=== PATIENT | male | born 1950 | race American Indian/Alaskan Native ===

== ENCOUNTER 2017-11-07 05:20 | Inpatient (IN) | payer MEDICARE, OTHER ==
[~2017-11-07] VITALS: Ht 170.2 cm; Wt 67.7 kg
[~2017-11-07 05:20] MED LIST: Actos45 MG PO; Aspir 8181 MG PO; CLON.1 PO; FOLI1; FOLI1 PO; GEMF600; LEVSOD50 PO; LOSHYD; METF500 PO; NEBI10; OLME40 PO; PANT20; PANT40; PANT40 PO; PARO30; PRED20 PO; PROAIR RESPICL90 MCG IH; Prozac20 MG PO; SITA100T2 PO; THIA100 PO; Tylenol325 MG PO; VERA180ERB PO; XARELTO20 MG; Zofran Odt4 MG SL
[2017-11-07 05:35] LABS: BASOPHILS ABSOLUTE AUTO 0.06 K/mm3 (0.00-0.23); BASOPHILS PERCENT AUTO 1 % (0-2); EOSINOPHILS ABSOLUTE AUTO 0.04 K/mm3 (0.00-0.68); EOSINOPHILS PERCENT AUTO 1 % (0-6); Hematocrit 37.8 % (37.0-53.0); Hemoglobin 13.3 g/dL (13.5-17.5); IMMATURE GRAN ABSOLUTE AUTO 0.03 K/mm3 (0.00-0.10); IMMATURE GRAN PERCENT AUTO 0 % (0-1); LYMPHOCYTES ABSOLUTE AUTO 2.25 K/mm3 (0.84-5.20); LYMPHOCYTES PERCENT AUTO 32 % (21-46); MONOCYTES ABSOLUTE AUTO 0.79 K/mm3 (0.16-1.47); MONOCYTES PERCENT AUTO 11 % (4-13); Mean Corpuscular HGB 32.4 pg (26.0-34.0); Mean Corpuscular HGB Conc 35.2 g/dL (31.5-36.5); Mean Corpuscular Volume 92 fL (80-100); Mean Platelet Volume 10.2 fL (9.1-12.4); NEUTROPHILS ABSOLUTE AUTO 3.92 K/mm3 (1.96-9.15); NEUTROPHILS PERCENT AUTO 55 % (41-73); Platelet Count 219 K/mm3 (150-400); RDW Coefficient Variation 11.5 % (11.7-14.2); RDW Standard Deviation 39.2 fL (35.1-46.3); Red Blood Cell Count 4.11 M/mm3 (4.30-5.90); White Blood Cell Count 7.09 K/mm3 (4.00-11.30)
[2017-11-07 05:48] LABS: Prothrombin Time Results 10.4 Sec (9.7-11.5)
[2017-11-07 05:59] LABS: Alanine Aminotransfer (ALT/SGP 13 U/L (12-78); Albumin, Blood 3.2 g/dL (3.4-5.0); Albumin/Globulin Ratio 0.9 (0.8-1.8); Alk Phos 90 U/L (50-136); Anion Gap 6 mmol/L (6-16); Aspartate Aminotrans (AST/SGOT 16 U/L (12-37); Bilirubin, Total 0.6 mg/dL (0.1-1.0); Blood Urea Nitrogen 10 mg/dL (8-24); Bun/Creatinine Ratio 17.5 (12.0-20.0); CO2, Blood 24 mmol/L (21-32); Calcium, Blood 8.1 mg/dL (8.5-10.1); Chloride, Blood 96 mmol/L (98-108); Creatinine, Blood 0.57 mg/dL (0.60-1.20); Globulin, Blood 3.6 g/dL (2.2-4.0); Glomerular Filtration Rate >60 (60-); Glucose, Blood 133 mg/dL (70-99); Potassium, Blood 3.7 mmol/L (3.5-5.5); Sodium, Blood 126 mmol/L (136-145); Total Protein, Blood 6.8 g/dL (6.4-8.2); Troponin I <0.015 ng/mL (0.000-0.040)
[2017-11-07] MEDS ORDERED: OXYB5 PO ×2 (06:17→14:48)
[2017-11-07] MEDS ORDERED: DONE5 (06:17)
[2017-11-07] MEDS ORDERED: OLME5TAB (06:18)
[2017-11-07] MEDS ORDERED: TAMS.4ER PO (06:18)
[2017-11-07] MEDS ORDERED: BIOTIN1 MG (06:19)
[2017-11-07 06:39] LABS: Uric Acid, Blood 3.9 mg/dL (3.5-7.2)
[2017-11-07 06:50] LABS: Ethanol (Alcohol), Blood, Med 71 mg/dL
[2017-11-07 06:56] LABS: Creatinine, Urine Random 21.2 mg/dL (27.00-270.00)
[2017-11-07 06:59] LABS: U Amphetamine Screen Not Detected; U Barbituate Screen Not Detected; U Benzodiazapine Screen Not Detected; U Cannabinoids Screen DETECTED; U Cocaine Screen Not Detected; U Methadone Screen Not Detected; U Methamphetamine Screen Not Detected; U Opiates Screen Not Detected; U Phencyclidine Screen Not Detected
[2017-11-07 07:00] LABS: U Buprenorphine Screen Not Detected; U Oxycodone Screen Not Detected; U Propoxyphene Screen Not Detected
[2017-11-07 07:08] LABS: Osmolality, Serum 283 mos/KG (275-300)
[2017-11-07 12:54] LABS: Anion Gap 10 mmol/L (6-16); Blood Urea Nitrogen 8 mg/dL (8-24); Bun/Creatinine Ratio 13.5 (12.0-20.0); CO2, Blood 22 mmol/L (21-32); Calcium, Blood 8.9 mg/dL (8.5-10.1); Chloride, Blood 97 mmol/L (98-108); Creatinine, Blood 0.59 mg/dL (0.60-1.20); Glomerular Filtration Rate >60 (60-); Glucose, Blood 113 mg/dL (70-99); Potassium, Blood 4.2 mmol/L (3.5-5.5); Sodium, Blood 129 mmol/L (136-145)
[2017-11-07] MEDS ORDERED: THIA100 PO (14:46)
[2017-11-07] MEDS ORDERED: OLME20 PO (14:47)
[2017-11-07] MEDS ORDERED: CLON.2 PO (14:48)
[2017-11-07] MEDS ORDERED: DONE10 PO (14:49)
[2017-11-07] MEDS ORDERED: PARO20 PO (14:49)
[2017-11-07] MEDS ORDERED: BIOTIN5000 MCG PO (14:50)
[2017-11-07] MEDS ORDERED: MAGCHL64ER (14:51)
[2017-11-08 08:09] LABS: BASOPHILS ABSOLUTE AUTO 0.05 K/mm3 (0.00-0.23); BASOPHILS PERCENT AUTO 1 % (0-2); EOSINOPHILS ABSOLUTE AUTO 0.08 K/mm3 (0.00-0.68); EOSINOPHILS PERCENT AUTO 1 % (0-6); IMMATURE GRAN ABSOLUTE AUTO 0.03 K/mm3 (0.00-0.10); IMMATURE GRAN PERCENT AUTO 0 % (0-1); LYMPHOCYTES PERCENT AUTO 32 % (21-46); MONOCYTES ABSOLUTE AUTO 0.67 K/mm3 (0.16-1.47); MONOCYTES PERCENT AUTO 8 % (4-13); Mean Corpuscular HGB 32.3 pg (26.0-34.0); Mean Corpuscular HGB Conc 35.1 g/dL (31.5-36.5); Mean Corpuscular Volume 92 fL (80-100); Mean Platelet Volume 10.3 fL (9.1-12.4); NEUTROPHILS ABSOLUTE AUTO 4.63 K/mm3 (1.96-9.15); NEUTROPHILS PERCENT AUTO 57 % (41-73); Platelet Count 224 K/mm3 (150-400); RDW Coefficient Variation 11.5 % (11.7-14.2); RDW Standard Deviation 38.9 fL (35.1-46.3); Red Blood Cell Count 4.03 M/mm3 (4.30-5.90); White Blood Cell Count 8.06 K/mm3 (4.00-11.30)
[2017-11-08 08:27] LABS: Very Low Density Lipoprot Chol 38 mg/dL (6-32)
[2017-11-08 08:28] LABS: Anion Gap 8 mmol/L (6-16); Blood Urea Nitrogen 7 mg/dL (8-24); Bun/Creatinine Ratio 11.4 (12.0-20.0); CHOL/HDL RATIO 3.6; CO2, Blood 24 mmol/L (21-32); Calcium, Blood 8.3 mg/dL (8.5-10.1); Chloride, Blood 98 mmol/L (98-108); Cholesterol 172 mg/dL (50-200); Creatinine, Blood 0.62 mg/dL (0.60-1.20); Glomerular Filtration Rate >60 (60-); Glucose, Blood 129 mg/dL (70-99); HDL Cholesterol 48 mg/dL (>39); LDL/HDL RATIO 1.8; Low Density Lipoprotein Chol 86 mg/dL (0-110); Potassium, Blood 4.1 mmol/L (3.5-5.5); Sodium, Blood 130 mmol/L (136-145); Triglycerides 191 mg/dL (30-160)
[2017-11-09 04:22] LABS: BASOPHILS ABSOLUTE AUTO 0.05 K/mm3 (0.00-0.23); BASOPHILS PERCENT AUTO 1 % (0-2); EOSINOPHILS ABSOLUTE AUTO 0.04 K/mm3 (0.00-0.68); EOSINOPHILS PERCENT AUTO 1 % (0-6); Hematocrit 34.8 % (37.0-53.0); Hemoglobin 12.5 g/dL (13.5-17.5); IMMATURE GRAN ABSOLUTE AUTO 0.03 K/mm3 (0.00-0.10); IMMATURE GRAN PERCENT AUTO 0 % (0-1); LYMPHOCYTES ABSOLUTE AUTO 2.01 K/mm3 (0.84-5.20); LYMPHOCYTES PERCENT AUTO 24 % (21-46); MONOCYTES ABSOLUTE AUTO 0.67 K/mm3 (0.16-1.47); MONOCYTES PERCENT AUTO 8 % (4-13); Mean Corpuscular HGB 32.4 pg (26.0-34.0); Mean Corpuscular HGB Conc 35.9 g/dL (31.5-36.5); Mean Corpuscular Volume 90 fL (80-100); Mean Platelet Volume 10.1 fL (9.1-12.4); NEUTROPHILS ABSOLUTE AUTO 5.53 K/mm3 (1.96-9.15); NEUTROPHILS PERCENT AUTO 66 % (41-73); Platelet Count 225 K/mm3 (150-400); RDW Coefficient Variation 11.3 % (11.7-14.2); RDW Standard Deviation 37.3 fL (35.1-46.3); Red Blood Cell Count 3.86 M/mm3 (4.30-5.90); White Blood Cell Count 8.33 K/mm3 (4.00-11.30)
[2017-11-09 04:37] LABS: Anion Gap 8 mmol/L (6-16); Blood Urea Nitrogen 7 mg/dL (8-24); Bun/Creatinine Ratio 12.9 (12.0-20.0); CO2, Blood 24 mmol/L (21-32); Calcium, Blood 8.3 mg/dL (8.5-10.1); Chloride, Blood 94 mmol/L (98-108); Creatinine, Blood 0.54 mg/dL (0.60-1.20); Glomerular Filtration Rate >60 (60-); Glucose, Blood 159 mg/dL (70-99); Potassium, Blood 3.5 mmol/L (3.5-5.5); Sodium, Blood 126 mmol/L (136-145)
[2017-11-09 14:18] LABS: Anion Gap 12 mmol/L (6-16); Blood Urea Nitrogen 6 mg/dL (8-24); Bun/Creatinine Ratio 11.1 (12.0-20.0); CO2, Blood 20 mmol/L (21-32); Calcium, Blood 8.2 mg/dL (8.5-10.1); Chloride, Blood 95 mmol/L (98-108); Creatinine, Blood 0.54 mg/dL (0.60-1.20); Glomerular Filtration Rate >60 (60-); Glucose, Blood 211 mg/dL (70-99); Potassium, Blood 3.8 mmol/L (3.5-5.5); Sodium, Blood 127 mmol/L (136-145)
[2017-11-10 05:13] LABS: Anion Gap 6 mmol/L (6-16); Blood Urea Nitrogen 8 mg/dL (8-24); CO2, Blood 25 mmol/L (21-32); Calcium, Blood 8.2 mg/dL (8.5-10.1); Chloride, Blood 96 mmol/L (98-108); Creatinine, Blood 0.53 mg/dL (0.60-1.20); Glomerular Filtration Rate >60 (60-); Glucose, Blood 172 mg/dL (70-99); Potassium, Blood 3.9 mmol/L (3.5-5.5); Sodium, Blood 127 mmol/L (136-145)
[2018-04-18] MEDS ORDERED: GABA100 PO (22:54)
== END 2017-11-10 11:49 | DRG 65 ==
LOC: ER 05:20 → SURS 09:17 → MEDS 09:29 → SURS 09:47 → ENPENDDIS 11-10 11:16 → SURS 11-10 11:49
PROVIDERS: Emergency Medicine; Internal Medicine
DX: I63.9 Cerebral infarction, unspecified (principal); G81.91 Hemiplegia, unspecified affecting right dominant side; I48.91 Unspecified atrial fibrillation; E87.1 Hypo-osmolality and hyponatremia; R47.1 Dysarthria and anarthria; R47.81 Slurred speech; E11.9 Type 2 diabetes mellitus without complications; I10 Essential (primary) hypertension; F17.210 Nicotine dependence, cigarettes, uncomplicated; F10.20 Alcohol dependence, uncomplicated; E78.5 Hyperlipidemia, unspecified; Z88.1 Allergy status to other antibiotic agents; Z88.8 Allergy status to other drugs, medicaments and biological substances; Z79.899 Other long term (current) drug therapy; Z79.01 Long term (current) use of anticoagulants; Z79.84 Long term (current) use of oral hypoglycemic drugs; Z95.0 Presence of cardiac pacemaker
CPT/HCPCS: 36415; 70450; 70496; 71046; 80048; 80053; 80061; 82570; 82947; 83930; 83935; 84300; 84443; 84484; 84540; 84550; 85025; 85610; 92523; 92610; 93005; 93010; 93306; 93880; 96360; 97110; 97116; 97162; 97166; 97530; 97535; 99285; G0480; G8978; G8979; G8987; G8988; G8996; G8997; G8999; G9158; G9186; J0360; J1200; J2060; J2997; J3411; J3475; J7030; J7042; Q9967

== ENCOUNTER 2017-12-24 15:47 | Observation (INO) | payer MEDICARE, OTHER ==
[~2017-12-24] VITALS: Ht 170.2 cm; Wt 68.4 kg
[~2017-12-24 15:47] MED LIST changes: +BIOTIN1 MG; +BIOTIN5000 MCG PO; +CLON.2 PO; +DONE10 PO; +DONE5; +MAGCHL64ER; +OLME20 PO; +OLME5TAB; +OXYB5 PO; +PARO20 PO; +TAMS.4ER PO
[2017-12-24 16:59] LABS: BASOPHILS ABSOLUTE AUTO 0.03 K/mm3 (0.00-0.23); BASOPHILS PERCENT AUTO 0 % (0-2); EOSINOPHILS ABSOLUTE AUTO 0.07 K/mm3 (0.00-0.68); EOSINOPHILS PERCENT AUTO 1 % (0-6); Hematocrit 35.3 % (37.0-53.0); Hemoglobin 12.2 g/dL (13.5-17.5); IMMATURE GRAN ABSOLUTE AUTO 0.04 K/mm3 (0.00-0.10); IMMATURE GRAN PERCENT AUTO 1 % (0-1); LYMPHOCYTES ABSOLUTE AUTO 2.22 K/mm3 (0.84-5.20); LYMPHOCYTES PERCENT AUTO 30 % (21-46); MONOCYTES ABSOLUTE AUTO 0.61 K/mm3 (0.16-1.47); MONOCYTES PERCENT AUTO 8 % (4-13); Mean Corpuscular HGB 32.1 pg (26.0-34.0); Mean Corpuscular HGB Conc 34.6 g/dL (31.5-36.5); Mean Corpuscular Volume 93 fL (80-100); Mean Platelet Volume 11.3 fL (9.1-12.4); NEUTROPHILS ABSOLUTE AUTO 4.37 K/mm3 (1.96-9.15); NEUTROPHILS PERCENT AUTO 60 % (41-73); Platelet Count 220 K/mm3 (150-400); RDW Coefficient Variation 12.5 % (11.7-14.2); RDW Standard Deviation 42.7 fL (35.1-46.3); White Blood Cell Count 7.34 K/mm3 (4.00-11.30)
[2017-12-24 17:12] LABS: International Normalized Ratio 1.29; Prothrombin Time Results 13.5 Sec (9.7-11.5)
[2017-12-24 17:23] LABS: Alanine Aminotransfer (ALT/SGP 22 U/L (12-78); Albumin, Blood 3.4 g/dL (3.4-5.0); Alk Phos 115 U/L (50-136); Anion Gap 10 mmol/L (6-16); Aspartate Aminotrans (AST/SGOT 26 U/L (12-37); Bilirubin, Total 0.3 mg/dL (0.1-1.0); Blood Urea Nitrogen 10 mg/dL (8-24); Bun/Creatinine Ratio 17.2 (12.0-20.0); CO2, Blood 23 mmol/L (21-32); Calcium, Blood 8.7 mg/dL (8.5-10.1); Chloride, Blood 105 mmol/L (98-108); Creatinine, Blood 0.58 mg/dL (0.60-1.20); Globulin, Blood 3.5 g/dL (2.2-4.0); Glomerular Filtration Rate >60 (60-); Glucose, Blood 135 mg/dL (70-99); Potassium, Blood 3.8 mmol/L (3.5-5.5); Sodium, Blood 138 mmol/L (136-145); Total Protein, Blood 6.9 g/dL (6.4-8.2)
[2017-12-24 19:05] LABS: Ethanol (Alcohol), Blood, Med <3 mg/dL
[2017-12-24 19:33] LABS: Source, Urine Clean Catch
[2017-12-24 19:38] LABS: Appearance, Urine Clear (Clear); Bilirubin, Urine Neg (Neg); Blood, Urine Neg (Neg); Color, Urine Yellow (P-Yellow); Glucose Qualitative, Urine Neg (Neg); Ketones, Urine Neg (Neg); Leukocyte Esterase, Urine Neg (Neg); Nitrite, Urine Neg (Neg); Protein, Urine Neg (Neg); Urobilinogen, Urine 1+ (Normal)
[2017-12-24 19:49] LABS: U Amphetamine Screen Not Detected; U Barbituate Screen Not Detected; U Benzodiazapine Screen Not Detected; U Buprenorphine Screen Not Detected; U Cannabinoids Screen DETECTED; U Cocaine Screen Not Detected; U Methadone Screen Not Detected; U Methamphetamine Screen Not Detected; U Opiates Screen Not Detected; U Oxycodone Screen Not Detected; U Phencyclidine Screen Not Detected; U Propoxyphene Screen Not Detected
[2017-12-24] MEDS ORDERED: SODCHL1 PO (20:43)
[2017-12-24] MEDS ORDERED: NEBI10 PO (20:43)
[2017-12-24] MEDS ORDERED: ASCO500 PO (20:43)
[2017-12-24] MEDS ORDERED: FOLI1 PO (20:44)
[2017-12-24] MEDS ORDERED: PANT20 PO (20:44)
[2017-12-24] MEDS ORDERED: WARF2 PO (20:45)
[2017-12-24] MEDS ORDERED: ENOX100I SC (20:45)
[2017-12-24] MEDS ORDERED: Colace100 MG PO (20:46)
[2017-12-24] MEDS ORDERED: METF500C PO (20:47)
[2017-12-25 10:26] LABS: International Normalized Ratio 1.48; Prothrombin Time Results 15.6 Sec (9.7-11.5)
[2017-12-25] MEDS ORDERED: ASPI81CH PO (12:16)
[2018-04-18] MEDS ORDERED: GABA100 PO (22:54)
== END 2017-12-25 14:59 | disposition home or self-care (01) ==
LOC: ER 15:47 → MEDS 15:48
PROVIDERS: Emergency Medicine; Internal Medicine; Physician Assistant
DX: I63.9 Cerebral infarction, unspecified (principal); E11.9 Type 2 diabetes mellitus without complications; I10 Essential (primary) hypertension; E87.1 Hypo-osmolality and hyponatremia; I48.2 Chronic atrial fibrillation; F17.210 Nicotine dependence, cigarettes, uncomplicated; Z95.0 Presence of cardiac pacemaker; Z98.890 Other specified postprocedural states; Z79.01 Long term (current) use of anticoagulants; Z79.899 Other long term (current) drug therapy; Z88.8 Allergy status to other drugs, medicaments and biological substances; Z79.4 Long term (current) use of insulin
CPT/HCPCS: 36415; 70450; 71046; 80053; 81003; 82947; 85025; 85610; 93005; 93010; 96372; 96374; 97161; 97166; 97535; 99285; C9113; G0378; G0480; G8978; G8979; G8980; G8987; G8988; G8989; J1650

== ENCOUNTER 2018-02-03 23:28 | Inpatient (IN) | payer MEDICARE, OTHER ==
[~2018-02-03] VITALS: Ht 170.2 cm; Wt 66.7 kg
[~2018-02-03 23:28] MED LIST changes: +ASCO500 PO; +ASPI81CH PO; +Colace100 MG PO; +ENOX100I SC; +NEBI10 PO; +PANT20 PO; +SITA100T2; -SITA100T2 PO; +SODCHL1 PO; +WARF2 PO
[2018-02-04 01:07] LABS: BASOPHILS ABSOLUTE AUTO 0.06 K/mm3 (0.00-0.23); BASOPHILS PERCENT AUTO 1 % (0-2); EOSINOPHILS PERCENT AUTO 1 % (0-6); Hematocrit 31.9 % (37.0-53.0); IMMATURE GRAN ABSOLUTE AUTO 0.07 K/mm3 (0.00-0.10); IMMATURE GRAN PERCENT AUTO 1 % (0-1); LYMPHOCYTES ABSOLUTE AUTO 2.21 K/mm3 (0.84-5.20); LYMPHOCYTES PERCENT AUTO 21 % (21-46); MONOCYTES ABSOLUTE AUTO 0.85 K/mm3 (0.16-1.47); MONOCYTES PERCENT AUTO 8 % (4-13); Mean Corpuscular HGB 32.3 pg (26.0-34.0); Mean Corpuscular HGB Conc 34.5 g/dL (31.5-36.5); Mean Corpuscular Volume 94 fL (80-100); Mean Platelet Volume 10.6 fL (9.1-12.4); NEUTROPHILS ABSOLUTE AUTO 7.22 K/mm3 (1.96-9.15); NEUTROPHILS PERCENT AUTO 69 % (41-73); Platelet Count 283 K/mm3 (150-400); RDW Coefficient Variation 12.2 % (11.7-14.2); RDW Standard Deviation 42.1 fL (35.1-46.3); Red Blood Cell Count 3.41 M/mm3 (4.30-5.90); White Blood Cell Count 10.51 K/mm3 (4.00-11.30)
[2018-02-04 01:20] LABS: International Normalized Ratio 1.98
[2018-02-04 01:28] LABS: Alanine Aminotransfer (ALT/SGP 17 U/L (12-78); Albumin, Blood 2.9 g/dL (3.4-5.0); Albumin/Globulin Ratio 0.8 (0.8-1.8); Alk Phos 131 U/L (50-136); Anion Gap 7 mmol/L (6-16); Aspartate Aminotrans (AST/SGOT 21 U/L (12-37); Bilirubin, Total 0.3 mg/dL (0.1-1.0); Blood Urea Nitrogen 15 mg/dL (8-24); Bun/Creatinine Ratio 20.2 (12.0-20.0); CO2, Blood 24 mmol/L (21-32); Calcium, Blood 8.4 mg/dL (8.5-10.1); Chloride, Blood 100 mmol/L (98-108); Creatinine, Blood 0.74 mg/dL (0.60-1.20); Globulin, Blood 3.5 g/dL (2.2-4.0); Glomerular Filtration Rate >60 (60-); Glucose, Blood 157 mg/dL (70-99); Sodium, Blood 131 mmol/L (136-145); Total Protein, Blood 6.4 g/dL (6.4-8.2); Troponin I <0.015 ng/mL (0.000-0.040)
[2018-02-04 13:29] LABS: International Normalized Ratio 1.15
[2018-02-04 20:40] LABS: Hematocrit 24.5 % (37.0-53.0); Hemoglobin 8.6 g/dL (13.5-17.5)
[2018-02-05 05:05] LABS: BASOPHILS ABSOLUTE AUTO 0.07 K/mm3 (0.00-0.23); BASOPHILS PERCENT AUTO 1 % (0-2); EOSINOPHILS ABSOLUTE AUTO 0.09 K/mm3 (0.00-0.68); EOSINOPHILS PERCENT AUTO 1 % (0-6); Hematocrit 24.8 % (37.0-53.0); Hemoglobin 8.4 g/dL (13.5-17.5); IMMATURE GRAN ABSOLUTE AUTO 0.04 K/mm3 (0.00-0.10); IMMATURE GRAN PERCENT AUTO 0 % (0-1); LYMPHOCYTES ABSOLUTE AUTO 2.18 K/mm3 (0.84-5.20); LYMPHOCYTES PERCENT AUTO 21 % (21-46); MONOCYTES ABSOLUTE AUTO 0.89 K/mm3 (0.16-1.47); MONOCYTES PERCENT AUTO 9 % (4-13); Mean Corpuscular HGB 31.5 pg (26.0-34.0); Mean Corpuscular HGB Conc 33.9 g/dL (31.5-36.5); Mean Corpuscular Volume 93 fL (80-100); Mean Platelet Volume 11.1 fL (9.1-12.4); NEUTROPHILS ABSOLUTE AUTO 7.11 K/mm3 (1.96-9.15); NEUTROPHILS PERCENT AUTO 68 % (41-73); Platelet Count 243 K/mm3 (150-400); RDW Coefficient Variation 12.5 % (11.7-14.2); RDW Standard Deviation 42.3 fL (35.1-46.3); Red Blood Cell Count 2.67 M/mm3 (4.30-5.90); White Blood Cell Count 10.38 K/mm3 (4.00-11.30)
[2018-02-05 05:32] LABS: Anion Gap 8 mmol/L (6-16); Blood Urea Nitrogen 16 mg/dL (8-24); Bun/Creatinine Ratio 29.4 (12.0-20.0); CO2, Blood 24 mmol/L (21-32); Calcium, Blood 8.4 mg/dL (8.5-10.1); Chloride, Blood 102 mmol/L (98-108); Creatinine, Blood 0.55 mg/dL (0.60-1.20); Glomerular Filtration Rate >60 (60-); Glucose, Blood 104 mg/dL (70-99); Potassium, Blood 4.1 mmol/L (3.5-5.5); Sodium, Blood 134 mmol/L (136-145)
[2018-02-05 08:09] LABS: Hematocrit 23.2 % (37.0-53.0)
[2018-02-05 08:25] LABS: International Normalized Ratio 1.03; Prothrombin Time Results 10.7 Sec (9.7-11.5)
== END 2018-02-05 14:14 | disposition home or self-care (01) | DRG 86 ==
LOC: ER 23:28 → MEDS 23:29
PROVIDERS: Emergency Medicine; Internal Medicine
PROC: 2Y41X5Z Packing of Nasal Region using Packing Material (ICD-10-PCS; principal; 2018-02-04)
PROC: 30233K1 Transfusion of Nonautologous Frozen Plasma into Peripheral Vein, Percutaneous Approach (ICD-10-PCS; 2018-02-04)
DX: S06.5X0A Traumatic subdural hemorrhage without loss of consciousness, initial encounter (principal); D62 Acute posthemorrhagic anemia; E87.1 Hypo-osmolality and hyponatremia; R04.0 Epistaxis; Z79.01 Long term (current) use of anticoagulants; W01.0XXA Fall on same level from slipping, tripping and stumbling without subsequent striking against object, initial encounter; Z95.0 Presence of cardiac pacemaker; I10 Essential (primary) hypertension; E11.9 Type 2 diabetes mellitus without complications; F17.210 Nicotine dependence, cigarettes, uncomplicated; J32.0 Chronic maxillary sinusitis; K21.9 Gastro-esophageal reflux disease without esophagitis; I48.91 Unspecified atrial fibrillation
CPT/HCPCS: 36415; 36430; 70450; 72125; 80048; 80053; 82947; 84484; 85014; 85018; 85025; 85610; 86900; 86901; 93005; 93010; 96365; 99285; A9270; C9113; J3430; J7030; P9059

== ENCOUNTER 2018-02-18 12:08 | Emergency (ER) | payer MEDICARE ==
[~2018-02-18] VITALS: Ht 170.2 cm; Wt 69.8 kg
[2018-02-18 12:41] LABS: BASOPHILS ABSOLUTE AUTO 0.05 K/mm3 (0.00-0.23); BASOPHILS PERCENT AUTO 1 % (0-2); EOSINOPHILS ABSOLUTE AUTO 0.03 K/mm3 (0.00-0.68); EOSINOPHILS PERCENT AUTO 0 % (0-6); Hematocrit 25.5 % (37.0-53.0); Hemoglobin 8.1 g/dL (13.5-17.5); IMMATURE GRAN ABSOLUTE AUTO 0.07 K/mm3 (0.00-0.10); IMMATURE GRAN PERCENT AUTO 1 % (0-1); LYMPHOCYTES ABSOLUTE AUTO 1.48 K/mm3 (0.84-5.20); LYMPHOCYTES PERCENT AUTO 17 % (21-46); MONOCYTES ABSOLUTE AUTO 0.69 K/mm3 (0.16-1.47); MONOCYTES PERCENT AUTO 8 % (4-13); Mean Corpuscular HGB 31.4 pg (26.0-34.0); Mean Corpuscular HGB Conc 31.8 g/dL (31.5-36.5); Mean Platelet Volume 10.2 fL (9.1-12.4); NEUTROPHILS ABSOLUTE AUTO 6.34 K/mm3 (1.96-9.15); NEUTROPHILS PERCENT AUTO 73 % (41-73); Platelet Count 397 K/mm3 (150-400); RDW Coefficient Variation 13.6 % (11.7-14.2); RDW Standard Deviation 48.8 fL (35.1-46.3); Red Blood Cell Count 2.58 M/mm3 (4.30-5.90); White Blood Cell Count 8.66 K/mm3 (4.00-11.30)
[2018-02-18 12:46] LABS: Mean Corpuscular Volume 99 fL (80-100)
[2018-02-18 12:51] LABS: Anion Gap 7 mmol/L (6-16); Blood Urea Nitrogen 8 mg/dL (8-24); Bun/Creatinine Ratio 14.8 (12.0-20.0); CO2, Blood 25 mmol/L (21-32); Calcium, Blood 8.7 mg/dL (8.5-10.1); Chloride, Blood 106 mmol/L (98-108); Creatinine, Blood 0.54 mg/dL (0.60-1.20); Glomerular Filtration Rate >60 (60-); Glucose, Blood 141 mg/dL (70-99); Sodium, Blood 138 mmol/L (136-145)
[2018-02-18] MEDS ORDERED: Lasix40 MG PO (13:54)
[2018-02-18] MEDS ORDERED: Acetaminophen-1 EAC1 PO (13:56)
== END 2018-02-18 14:22 | disposition home or self-care (01) ==
LOC: ER 12:08
PROVIDERS: Emergency Medicine
DX: I50.9 Heart failure, unspecified (principal); F07.81 Postconcussional syndrome; Z88.1 Allergy status to other antibiotic agents; Z88.8 Allergy status to other drugs, medicaments and biological substances; Z79.899 Other long term (current) drug therapy; Z79.84 Long term (current) use of oral hypoglycemic drugs
CPT/HCPCS: 36415; 70450; 71046; 80048; 83880; 85025; 93005; 93010; J1940

== ENCOUNTER 2018-04-18 15:48 | Observation (INO) | payer MEDICARE, OTHER ==
[~2018-04-18] VITALS: Ht 170.2 cm; Wt 61.0 kg
[~2018-04-18 15:48] MED LIST changes: +Acetaminophen-1 EAC1 PO; +Lasix40 MG PO; +METF500C PO; -SITA100T2; +SITA100T2 PO
[2018-04-18 16:05] LABS: BASOPHILS ABSOLUTE AUTO 0.08 K/mm3 (0.00-0.23); BASOPHILS PERCENT AUTO 1 % (0-2); EOSINOPHILS ABSOLUTE AUTO 0.06 K/mm3 (0.00-0.68); EOSINOPHILS PERCENT AUTO 0 % (0-6); Hematocrit 38.2 % (37.0-53.0); Hemoglobin 12.5 g/dL (13.5-17.5); IMMATURE GRAN ABSOLUTE AUTO 0.07 K/mm3 (0.00-0.10); IMMATURE GRAN PERCENT AUTO 1 % (0-1); LYMPHOCYTES ABSOLUTE AUTO 2.06 K/mm3 (0.84-5.20); LYMPHOCYTES PERCENT AUTO 14 % (21-46); MONOCYTES ABSOLUTE AUTO 0.95 K/mm3 (0.16-1.47); MONOCYTES PERCENT AUTO 6 % (4-13); Mean Corpuscular HGB 28.1 pg (26.0-34.0); Mean Corpuscular HGB Conc 32.7 g/dL (31.5-36.5); Mean Corpuscular Volume 86 fL (80-100); Mean Platelet Volume 11.6 fL (9.1-12.4); NEUTROPHILS ABSOLUTE AUTO 11.78 K/mm3 (1.96-9.15); NEUTROPHILS PERCENT AUTO 79 % (41-73); Platelet Count 269 K/mm3 (150-400); RDW Coefficient Variation 15.6 % (11.7-14.2); RDW Standard Deviation 49.1 fL (35.1-46.3); Red Blood Cell Count 4.45 M/mm3 (4.30-5.90)
[2018-04-18 16:22] LABS: Alanine Aminotransfer (ALT/SGP 19 U/L (12-78); Albumin, Blood 3.7 g/dL (3.4-5.0); Albumin/Globulin Ratio 0.9 (0.8-1.8); Alk Phos 109 U/L (50-136); Anion Gap 14 mmol/L (6-16); Aspartate Aminotrans (AST/SGOT 21 U/L (12-37); Bilirubin, Total 0.8 mg/dL (0.1-1.0); Blood Urea Nitrogen 17 mg/dL (8-24); Bun/Creatinine Ratio 22.5 (12.0-20.0); CO2, Blood 19 mmol/L (21-32); Calcium, Blood 9.2 mg/dL (8.5-10.1); Chloride, Blood 106 mmol/L (98-108); Creatinine, Blood 0.75 mg/dL (0.60-1.20); Ethanol (Alcohol), Blood, Med <3 mg/dL; Globulin, Blood 3.9 g/dL (2.2-4.0); Glomerular Filtration Rate >60 (60-); Glucose, Blood 258 mg/dL (70-99); Potassium, Blood 3.3 mmol/L (3.5-5.5); Sodium, Blood 139 mmol/L (136-145); Total Protein, Blood 7.6 g/dL (6.4-8.2); Troponin I <0.015 ng/mL (0.000-0.040)
[2018-04-18] MEDS ORDERED: Millipred5 MG PO (22:54)
[2018-04-18] MEDS ORDERED: GABA300 PO (22:54)
[2018-04-19 03:03] LABS: BASOPHILS ABSOLUTE AUTO 0.03 K/mm3 (0.00-0.23); BASOPHILS PERCENT AUTO 0 % (0-2); EOSINOPHILS ABSOLUTE AUTO 0.01 K/mm3 (0.00-0.68); EOSINOPHILS PERCENT AUTO 0 % (0-6); Hematocrit 37.4 % (37.0-53.0); Hemoglobin 12.5 g/dL (13.5-17.5); IMMATURE GRAN ABSOLUTE AUTO 0.05 K/mm3 (0.00-0.10); IMMATURE GRAN PERCENT AUTO 0 % (0-1); LYMPHOCYTES ABSOLUTE AUTO 1.19 K/mm3 (0.84-5.20); LYMPHOCYTES PERCENT AUTO 9 % (21-46); MONOCYTES PERCENT AUTO 7 % (4-13); Mean Corpuscular HGB 28.3 pg (26.0-34.0); Mean Corpuscular HGB Conc 33.4 g/dL (31.5-36.5); Mean Corpuscular Volume 85 fL (80-100); Mean Platelet Volume 12.3 fL (9.1-12.4); NEUTROPHILS ABSOLUTE AUTO 11.14 K/mm3 (1.96-9.15); NEUTROPHILS PERCENT AUTO 84 % (41-73); Platelet Count 264 K/mm3 (150-400); RDW Coefficient Variation 16.1 % (11.7-14.2); Red Blood Cell Count 4.42 M/mm3 (4.30-5.90); White Blood Cell Count 13.32 K/mm3 (4.00-11.30)
[2018-04-19 03:18] LABS: Anion Gap 12 mmol/L (6-16); Blood Urea Nitrogen 15 mg/dL (8-24); Bun/Creatinine Ratio 24.9 (12.0-20.0); CO2, Blood 22 mmol/L (21-32); Calcium, Blood 8.2 mg/dL (8.5-10.1); Chloride, Blood 105 mmol/L (98-108); Glomerular Filtration Rate >60 (60-); Glucose, Blood 303 mg/dL (70-99); Magnesium, Blood 1.7 mg/dL (1.6-2.4); Potassium, Blood 3.2 mmol/L (3.5-5.5); Sodium, Blood 139 mmol/L (136-145)
[2018-04-19] MEDS ORDERED: SODCHL1 PO (13:33)
== END 2018-04-19 13:53 | disposition home or self-care (01) ==
LOC: ER 15:48 → ICUW 15:49 → MEDS 15:49 → ICUW 21:13
PROVIDERS: Emergency Medicine; Hospitalist
DX: I16.1 Hypertensive emergency (principal); I48.91 Unspecified atrial fibrillation; R11.2 Nausea with vomiting, unspecified; Z88.1 Allergy status to other antibiotic agents; Z88.8 Allergy status to other drugs, medicaments and biological substances; Z79.899 Other long term (current) drug therapy; Z86.73 Personal history of transient ischemic attack (TIA), and cerebral infarction without residual deficits
CPT/HCPCS: 36415; 51702; 71046; 80048; 80053; 82947; 83690; 83735; 83880; 84484; 85025; 93005; 93010; 96361; 96365; 96366; 96374; 96375; 99285-25; A9270; G0378; G0480; J0360; J1815; J2060; J2405; J3010; J3480; J7030

== ENCOUNTER → 2018-05-12 | Outpatient (CLI) | payer MEDICARE, OTHER ==
[~2018-05-12] MED LIST changes: +GABA300 PO; +Millipred5 MG PO
== END ==
LOC: LAB 15:52 → LAB SHORT 15:52
DX: L72.3 Sebaceous cyst (principal)
CPT/HCPCS: 87070; 87077; 87147; 87186; 87205

== ENCOUNTER 2018-05-18 15:12 | Emergency (ER) | payer MEDICARE, OTHER ==
[~2018-05-18] VITALS: Ht 170.2 cm; Wt 64.9 kg
[~2018-05-18 15:12] MED LIST changes: +GABA100 PO; -GABA300 PO
[2018-05-18 15:45] LABS: Source, Urine Clean Catch
[2018-05-18] MEDS ORDERED: CEPH500 PO (15:47)
[2018-05-18 15:52] LABS: BASOPHILS ABSOLUTE AUTO 0.04 K/mm3 (0.00-0.23); BASOPHILS PERCENT AUTO 1 % (0-2); EOSINOPHILS ABSOLUTE AUTO 0.07 K/mm3 (0.00-0.68); EOSINOPHILS PERCENT AUTO 1 % (0-6); Hematocrit 33.2 % (37.0-53.0); Hemoglobin 11.3 g/dL (13.5-17.5); IMMATURE GRAN ABSOLUTE AUTO 0.03 K/mm3 (0.00-0.10); IMMATURE GRAN PERCENT AUTO 0 % (0-1); LYMPHOCYTES ABSOLUTE AUTO 1.75 K/mm3 (0.84-5.20); LYMPHOCYTES PERCENT AUTO 22 % (21-46); MONOCYTES ABSOLUTE AUTO 0.67 K/mm3 (0.16-1.47); MONOCYTES PERCENT AUTO 8 % (4-13); Mean Corpuscular HGB 28.7 pg (26.0-34.0); Mean Corpuscular Volume 84 fL (80-100); Mean Platelet Volume 10.6 fL (9.1-12.4); NEUTROPHILS ABSOLUTE AUTO 5.56 K/mm3 (1.96-9.15); NEUTROPHILS PERCENT AUTO 68 % (41-73); Platelet Count 273 K/mm3 (150-400); RDW Coefficient Variation 17.2 % (11.7-14.2); RDW Standard Deviation 53.1 fL (35.1-46.3); Red Blood Cell Count 3.94 M/mm3 (4.30-5.90); White Blood Cell Count 8.12 K/mm3 (4.00-11.30)
[2018-05-18 15:52] LABS: Appearance, Urine Clear (Clear); Bilirubin, Urine Neg (Neg); Blood, Urine Neg (Neg); Color, Urine Yellow (P-Yellow); Glucose Qualitative, Urine Neg (Neg); Ketones, Urine Neg (Neg); Leukocyte Esterase, Urine Neg (Neg); Nitrite, Urine Neg (Neg); Protein, Urine Neg (Neg); Urobilinogen, Urine NORM (Normal)
[2018-05-18 16:08] LABS: Alanine Aminotransfer (ALT/SGP 15 U/L (12-78); Albumin, Blood 2.9 g/dL (3.4-5.0); Albumin/Globulin Ratio 0.8 (0.8-1.8); Alk Phos 102 U/L (50-136); Anion Gap 10 mmol/L (6-16); Aspartate Aminotrans (AST/SGOT 16 U/L (12-37); Bilirubin, Total 0.2 mg/dL (0.1-1.0); Blood Urea Nitrogen 8 mg/dL (8-24); Bun/Creatinine Ratio 15.3 (12.0-20.0); CO2, Blood 23 mmol/L (21-32); Calcium, Blood 8.1 mg/dL (8.5-10.1); Chloride, Blood 100 mmol/L (98-108); Creatinine, Blood 0.52 mg/dL (0.60-1.20); Globulin, Blood 3.7 g/dL (2.2-4.0); Glomerular Filtration Rate >60 (60-); Glucose, Blood 94 mg/dL (70-99); Sodium, Blood 133 mmol/L (136-145); Total Protein, Blood 6.6 g/dL (6.4-8.2); Troponin I <0.015 ng/mL (0.000-0.040)
== END 2018-05-18 16:49 | disposition home or self-care (01) ==
LOC: ER 15:12
PROVIDERS: Internal Medicine
DX: I10 Essential (primary) hypertension (principal); R53.83 Other fatigue; R53.81 Other malaise; Z88.1 Allergy status to other antibiotic agents; Z79.899 Other long term (current) drug therapy; Z79.84 Long term (current) use of oral hypoglycemic drugs
CPT/HCPCS: 80053; 81003; 84484; 85025; 93005; 93010; 99284-25

== ENCOUNTER 2018-05-21 17:42 | Inpatient (IN) | payer MEDICARE, OTHER ==
[~2018-05-21] VITALS: Ht 170.2 cm; Wt 67.7 kg
[~2018-05-21 17:42] MED LIST changes: +CEPH500 PO
[2018-05-21] MEDS ORDERED: SITA100T2 PO (18:39)
[2018-05-21] MEDS ORDERED: TAMS.4ER PO (18:39)
[2018-05-21] MEDS ORDERED: SPIR25 PO (18:39)
[2018-05-21 21:26] LABS: Calcium, Ionized (POC) 1.06 mmol/L (1.10-1.46); Chloride (POC) 94 mmol/L (98-108); Creatinine (POC) 0.5 mg/dL (0.8-1.3); Glucose (ISTAT POC) 101 mg/dL (70-99); Hemoglobin (POC) 10.5 g/dL (13.5-17.5); Potassium (POC) 3.6 mmol/L (3.5-5.5); Sodium (POC) 131 mmol/L (135-148); Total CO2 (POC) 26 mmol/L (21-32)
[2018-05-22 04:45] LABS: Hematocrit 34.3 % (37.0-53.0); Hemoglobin 11.4 g/dL (13.5-17.5); Mean Corpuscular HGB 27.3 pg (26.0-34.0); Mean Corpuscular HGB Conc 33.2 g/dL (31.5-36.5); Mean Corpuscular Volume 82 fL (80-100); Mean Platelet Volume 10.1 fL (9.1-12.4); Platelet Count 298 K/mm3 (150-400); RDW Coefficient Variation 17.2 % (11.7-14.2); RDW Standard Deviation 51.4 fL (35.1-46.3); Red Blood Cell Count 4.18 M/mm3 (4.30-5.90); White Blood Cell Count 10.98 K/mm3 (4.00-11.30)
[2018-05-22 05:10] LABS: Alanine Aminotransfer (ALT/SGP 16 U/L (12-78); Albumin, Blood 3.2 g/dL (3.4-5.0); Albumin/Globulin Ratio 0.8 (0.8-1.8); Alk Phos 89 U/L (50-136); Anion Gap 7 mmol/L (6-16); Aspartate Aminotrans (AST/SGOT 20 U/L (12-37); Bilirubin, Total 0.4 mg/dL (0.1-1.0); Blood Urea Nitrogen 7 mg/dL (8-24); Bun/Creatinine Ratio 13.2 (12.0-20.0); CO2, Blood 25 mmol/L (21-32); Calcium, Blood 8.2 mg/dL (8.5-10.1); Chloride, Blood 97 mmol/L (98-108); Creatinine, Blood 0.53 mg/dL (0.60-1.20); Globulin, Blood 3.8 g/dL (2.2-4.0); Glomerular Filtration Rate >60 (60-); Glucose, Blood 176 mg/dL (70-99); Potassium, Blood 3.6 mmol/L (3.5-5.5); Sodium, Blood 129 mmol/L (136-145)
[2018-05-23 05:28] LABS: BASOPHILS ABSOLUTE AUTO 0.04 K/mm3 (0.00-0.23); BASOPHILS PERCENT AUTO 1 % (0-2); EOSINOPHILS ABSOLUTE AUTO 0.02 K/mm3 (0.00-0.68); EOSINOPHILS PERCENT AUTO 0 % (0-6); Hematocrit 31.7 % (37.0-53.0); Hemoglobin 10.4 g/dL (13.5-17.5); IMMATURE GRAN ABSOLUTE AUTO 0.03 K/mm3 (0.00-0.10); IMMATURE GRAN PERCENT AUTO 0 % (0-1); LYMPHOCYTES PERCENT AUTO 16 % (21-46); MONOCYTES ABSOLUTE AUTO 0.93 K/mm3 (0.16-1.47); MONOCYTES PERCENT AUTO 11 % (4-13); Mean Corpuscular HGB 27.3 pg (26.0-34.0); Mean Corpuscular HGB Conc 32.8 g/dL (31.5-36.5); Mean Corpuscular Volume 83 fL (80-100); Mean Platelet Volume 10.2 fL (9.1-12.4); NEUTROPHILS PERCENT AUTO 72 % (41-73); Platelet Count 233 K/mm3 (150-400); RDW Coefficient Variation 17.8 % (11.7-14.2); RDW Standard Deviation 54.3 fL (35.1-46.3); Red Blood Cell Count 3.81 M/mm3 (4.30-5.90); White Blood Cell Count 8.22 K/mm3 (4.00-11.30)
[2018-05-23 05:50] LABS: Anion Gap 7 mmol/L (6-16); Blood Urea Nitrogen 7 mg/dL (8-24); Bun/Creatinine Ratio 11.8 (12.0-20.0); CO2, Blood 25 mmol/L (21-32); Calcium, Blood 7.6 mg/dL (8.5-10.1); Chloride, Blood 102 mmol/L (98-108); Creatinine, Blood 0.59 mg/dL (0.60-1.20); Glomerular Filtration Rate >60 (60-); Glucose, Blood 157 mg/dL (70-99); Magnesium, Blood 1.6 mg/dL (1.6-2.4); Potassium, Blood 3.8 mmol/L (3.5-5.5); Sodium, Blood 134 mmol/L (136-145)
== END 2018-05-25 17:08 | DRG 481 ==
LOC: ER 17:42 → SURS 21:49
PROVIDERS: Emergency Medicine; Internal Medicine; Orthopaedic Surgery
PROC: 0QH636Z Insertion of Intramedullary Internal Fixation Device into Right Upper Femur, Percutaneous Approach (ICD-10-PCS; principal; 2018-05-22 17:45)
DX: S72.011A Unspecified intracapsular fracture of right femur, initial encounter for closed fracture (principal); E87.1 Hypo-osmolality and hyponatremia; W19.XXXA Unspecified fall, initial encounter; E11.9 Type 2 diabetes mellitus without complications; Z79.4 Long term (current) use of insulin; I10 Essential (primary) hypertension; F32.9 Major depressive disorder, single episode, unspecified; M54.9 Dorsalgia, unspecified; F10.20 Alcohol dependence, uncomplicated; Z66 Do not resuscitate; Z51.5 Encounter for palliative care; F17.210 Nicotine dependence, cigarettes, uncomplicated; Z86.73 Personal history of transient ischemic attack (TIA), and cerebral infarction without residual deficits
CPT/HCPCS: 36415; 72170; 73030; 73502; 73552; 73700; 80047; 80048; 80053; 82947; 83735; 85014; 85025; 85027; 94762; 96374; 96375; 96376; 97110; 97162; 97165; 97530; 97535; 99285-25; C1713; C1769; C9113; G8978; G8979; G8987; G8988; J0360; J0690; J1170; J2060; J2250; J2405; J3010; J3360; J3475; J3480; J7030; J7120

== ENCOUNTER 2018-06-30 19:29 | Emergency (ER) | payer MEDICARE, OTHER ==
[~2018-06-30] VITALS: Ht 170.2 cm; Wt 81.7 kg
[~2018-06-30 19:29] MED LIST changes: +SPIR25 PO
[2018-06-30 20:41] LABS: BASOPHILS ABSOLUTE AUTO 0.05 K/mm3 (0.00-0.23); BASOPHILS PERCENT AUTO 1 % (0-2); EOSINOPHILS ABSOLUTE AUTO 0.06 K/mm3 (0.00-0.68); EOSINOPHILS PERCENT AUTO 1 % (0-6); Hematocrit 30.7 % (37.0-53.0); Hemoglobin 10.3 g/dL (13.5-17.5); IMMATURE GRAN ABSOLUTE AUTO 0.04 K/mm3 (0.00-0.10); IMMATURE GRAN PERCENT AUTO 0 % (0-1); LYMPHOCYTES ABSOLUTE AUTO 2.28 K/mm3 (0.84-5.20); LYMPHOCYTES PERCENT AUTO 25 % (21-46); MONOCYTES ABSOLUTE AUTO 0.66 K/mm3 (0.16-1.47); MONOCYTES PERCENT AUTO 7 % (4-13); Mean Corpuscular HGB 29.3 pg (26.0-34.0); Mean Corpuscular HGB Conc 33.6 g/dL (31.5-36.5); Mean Corpuscular Volume 88 fL (80-100); Mean Platelet Volume 10.5 fL (9.1-12.4); NEUTROPHILS ABSOLUTE AUTO 6.22 K/mm3 (1.96-9.15); NEUTROPHILS PERCENT AUTO 67 % (41-73); Platelet Count 212 K/mm3 (150-400); RDW Coefficient Variation 16.7 % (11.7-14.2); RDW Standard Deviation 53.8 fL (35.1-46.3); Red Blood Cell Count 3.51 M/mm3 (4.30-5.90); White Blood Cell Count 9.31 K/mm3 (4.00-11.30)
[2018-06-30 20:58] LABS: Alanine Aminotransfer (ALT/SGP 19 U/L (12-78); Albumin, Blood 2.9 g/dL (3.4-5.0); Albumin/Globulin Ratio 0.9 (0.8-1.8); Alk Phos 136 U/L (50-136); Anion Gap 8 mmol/L (6-16); Aspartate Aminotrans (AST/SGOT 13 U/L (12-37); Bilirubin, Total 0.3 mg/dL (0.1-1.0); Blood Urea Nitrogen 11 mg/dL (8-24); Bun/Creatinine Ratio 18.4 (12.0-20.0); CO2, Blood 26 mmol/L (21-32); Calcium, Blood 7.9 mg/dL (8.5-10.1); Chloride, Blood 99 mmol/L (98-108); Globulin, Blood 3.4 g/dL (2.2-4.0); Glomerular Filtration Rate >60 (60-); Glucose, Blood 247 mg/dL (70-99); Potassium, Blood 3.3 mmol/L (3.5-5.5); Sodium, Blood 133 mmol/L (136-145); Total Protein, Blood 6.3 g/dL (6.4-8.2)
== END 2018-06-30 22:26 | disposition home or self-care (01) ==
LOC: ER 19:29
PROVIDERS: Emergency Medicine
DX: S09.90XA Unspecified injury of head, initial encounter (principal); S70.01XA Contusion of right hip, initial encounter; S40.011A Contusion of right shoulder, initial encounter; I10 Essential (primary) hypertension; F17.210 Nicotine dependence, cigarettes, uncomplicated; Z88.1 Allergy status to other antibiotic agents; Z79.899 Other long term (current) drug therapy; Z86.73 Personal history of transient ischemic attack (TIA), and cerebral infarction without residual deficits; W18.30XA Fall on same level, unspecified, initial encounter
CPT/HCPCS: 36415; 70450; 73502; 80053; 85025; 96374; 99284-25; J3010

== ENCOUNTER 2018-09-30 10:41 | Emergency (ER) | payer MEDICARE, OTHER ==
[~2018-09-30] VITALS: Ht 170.2 cm; Wt 65.8 kg
[2018-09-30 11:07] LABS: Source, Urine Clean Catch
[2018-09-30] MEDS ORDERED: SITA100T2 PO (11:07)
[2018-09-30] MEDS ORDERED: HYDR1TAB94 PO (11:09)
[2018-09-30] MEDS ORDERED: FURO40 PO (11:09)
[2018-09-30 11:30] LABS: Bilirubin, Urine Neg (Neg); Blood, Urine Neg (Neg); Glucose Qualitative, Urine Neg (Neg); Ketones, Urine Neg (Neg); Leukocyte Esterase, Urine Neg (Neg); Nitrite, Urine Neg (Neg); Protein, Urine 1+ (Neg); Urobilinogen, Urine 1+ (Normal)
[2018-09-30 11:44] LABS: Appearance, Urine Clear (Clear); Color, Urine Pale Yellow (P-Yellow)
[2018-09-30 11:47] LABS: BASOPHILS ABSOLUTE AUTO 0.07 K/mm3 (0.00-0.23); BASOPHILS PERCENT AUTO 1 % (0-2); EOSINOPHILS ABSOLUTE AUTO 0.23 K/mm3 (0.00-0.68); EOSINOPHILS PERCENT AUTO 2 % (0-6); Hematocrit 42.1 % (37.0-53.0); Hemoglobin 13.5 g/dL (13.5-17.5); IMMATURE GRAN ABSOLUTE AUTO 0.04 K/mm3 (0.00-0.10); IMMATURE GRAN PERCENT AUTO 0 % (0-1); LYMPHOCYTES ABSOLUTE AUTO 1.95 K/mm3 (0.84-5.20); LYMPHOCYTES PERCENT AUTO 19 % (21-46); MONOCYTES ABSOLUTE AUTO 0.78 K/mm3 (0.16-1.47); MONOCYTES PERCENT AUTO 8 % (4-13); Mean Corpuscular HGB Conc 32.1 g/dL (31.5-36.5); Mean Corpuscular Volume 94 fL (80-100); Mean Platelet Volume 11.6 fL (9.1-12.4); NEUTROPHILS PERCENT AUTO 70 % (41-73); Platelet Count 238 K/mm3 (150-400); RDW Coefficient Variation 15.7 % (11.7-14.2); RDW Standard Deviation 53.8 fL (35.1-46.3); White Blood Cell Count 10.17 K/mm3 (4.00-11.30)
[2018-09-30 12:08] LABS: Alanine Aminotransfer (ALT/SGP 18 U/L (12-78); Albumin, Blood 3.6 g/dL (3.4-5.0); Albumin/Globulin Ratio 0.8 (0.8-1.8); Alk Phos 136 U/L (50-136); Anion Gap 8 mmol/L (6-16); Aspartate Aminotrans (AST/SGOT 20 U/L (12-37); Bilirubin, Total 0.6 mg/dL (0.1-1.0); Blood Urea Nitrogen 9 mg/dL (8-24); Bun/Creatinine Ratio 14.8 (12.0-20.0); CO2, Blood 27 mmol/L (21-32); Calcium, Blood 9.1 mg/dL (8.5-10.1); Chloride, Blood 104 mmol/L (98-108); Creatinine, Blood 0.61 mg/dL (0.60-1.20); Globulin, Blood 4.6 g/dL (2.2-4.0); Glomerular Filtration Rate >60 (60-); Glucose, Blood 133 mg/dL (70-99); Potassium, Blood 4.2 mmol/L (3.5-5.5); Sodium, Blood 139 mmol/L (136-145); Total Protein, Blood 8.2 g/dL (6.4-8.2); Troponin I <0.015 ng/mL (0.000-0.040)
[2018-09-30] MEDS ORDERED: Amoxicillin500 MG PO (13:44)
[2018-09-30] MEDS ORDERED: Prednisone20 MG PO (13:44)
== END 2018-09-30 14:02 | disposition home or self-care (01) ==
LOC: ER 10:41
PROVIDERS: Physician Assistant
DX: S60.454A Superficial foreign body of right ring finger, initial encounter (principal); W45.8XXA Other foreign body or object entering through skin, initial encounter
CPT/HCPCS: 36415; 71046; 80053; 84484; 85025; 93005; 93010; 94640; J2930; J7030

== ENCOUNTER 2018-10-04 00:44 | Emergency (ER) | payer MEDICARE, OTHER ==
[~2018-10-04] VITALS: Ht 170.2 cm; Wt 68.0 kg
[~2018-10-04 00:44] MED LIST changes: +Amoxicillin500 MG PO; +FURO40 PO; +HYDR1TAB94 PO; +Prednisone20 MG PO
[2018-10-04] MEDS ORDERED: Azithromycin250 MG PO (00:56)
[2018-10-04] MEDS ORDERED: AMLO5 PO (00:59)
[2018-10-04 01:13] LABS: BASOPHILS ABSOLUTE AUTO 0.02 K/mm3 (0.00-0.23); BASOPHILS PERCENT AUTO 0 % (0-2); EOSINOPHILS ABSOLUTE AUTO 0.01 K/mm3 (0.00-0.68); EOSINOPHILS PERCENT AUTO 0 % (0-6); Hematocrit 33.1 % (37.0-53.0); IMMATURE GRAN ABSOLUTE AUTO 0.05 K/mm3 (0.00-0.10); IMMATURE GRAN PERCENT AUTO 0 % (0-1); LYMPHOCYTES ABSOLUTE AUTO 2.37 K/mm3 (0.84-5.20); LYMPHOCYTES PERCENT AUTO 21 % (21-46); MONOCYTES ABSOLUTE AUTO 0.88 K/mm3 (0.16-1.47); MONOCYTES PERCENT AUTO 8 % (4-13); Mean Corpuscular HGB 30.2 pg (26.0-34.0); Mean Corpuscular HGB Conc 33.2 g/dL (31.5-36.5); Mean Platelet Volume 11.7 fL (9.1-12.4); NEUTROPHILS PERCENT AUTO 71 % (41-73); Platelet Count 245 K/mm3 (150-400); RDW Coefficient Variation 15.3 % (11.7-14.2); RDW Standard Deviation 50.4 fL (35.1-46.3); Red Blood Cell Count 3.64 M/mm3 (4.30-5.90); White Blood Cell Count 11.53 K/mm3 (4.00-11.30)
[2018-10-04 01:14] LABS: Mean Corpuscular Volume 91 fL (80-100)
[2018-10-04 01:26] LABS: Alanine Aminotransfer (ALT/SGP 12 U/L (12-78); Albumin, Blood 2.9 g/dL (3.4-5.0); Albumin/Globulin Ratio 0.8 (0.8-1.8); Alk Phos 96 U/L (50-136); Anion Gap 8 mmol/L (6-16); Aspartate Aminotrans (AST/SGOT 6 U/L (12-37); Bilirubin, Total 0.3 mg/dL (0.1-1.0); Blood Urea Nitrogen 19 mg/dL (8-24); Bun/Creatinine Ratio 26.7 (12.0-20.0); CO2, Blood 25 mmol/L (21-32); Calcium, Blood 8.5 mg/dL (8.5-10.1); Chloride, Blood 104 mmol/L (98-108); Creatinine, Blood 0.71 mg/dL (0.60-1.20); Globulin, Blood 3.6 g/dL (2.2-4.0); Glomerular Filtration Rate >60 (60-); Glucose, Blood 197 mg/dL (70-99); Potassium, Blood 3.9 mmol/L (3.5-5.5); Sodium, Blood 137 mmol/L (136-145); Total Protein, Blood 6.5 g/dL (6.4-8.2)
[2018-10-04 02:35] LABS: Source, Urine Clean Catch
[2018-10-04 02:46] LABS: Bilirubin, Urine Neg (Neg); Blood, Urine Neg (Neg); Glucose Qualitative, Urine Neg (Neg); Ketones, Urine Neg (Neg); Leukocyte Esterase, Urine 1+ (Neg); Nitrite, Urine Neg (Neg); Protein, Urine 1+ (Neg); Specific Gravity, Urine 1.015 (1.003-1.022); Urobilinogen, Urine 2+ (Normal)
[2018-10-04 02:51] LABS: Appearance, Urine Clear (Clear); Color, Urine Yellow (P-Yellow)
[2018-10-04 02:52] LABS: Bacteria Few /hpf; Red Blood Cells, Urine 0-2 /hpf (0-2); Squamous Epithelial Cells Not Seen /hpf (Few); White Blood Cells, Urine 0-2 /hpf (0-5)
[2018-10-04 02:56] LABS: U Amphetamine Screen Not Detected; U Barbituate Screen Not Detected; U Benzodiazapine Screen Not Detected; U Buprenorphine Screen Not Detected; U Cannabinoids Screen DETECTED; U Cocaine Screen Not Detected; U Methadone Screen Not Detected; U Methamphetamine Screen Not Detected; U Opiates Screen Not Detected; U Oxycodone Screen Not Detected; U Phencyclidine Screen Not Detected; U Propoxyphene Screen Not Detected
[2018-11-25] MEDS ORDERED: MAGN84 PO (15:40)
[2018-11-25] MEDS ORDERED: TYLENOL ARTHRITIS PO (15:41)
[2018-11-25] MEDS ORDERED: VITAMIN B1 PO (15:41)
[2018-11-25] MEDS ORDERED: SODCHL1 PO (15:41)
[2018-11-25] MEDS ORDERED: COMBIVENT RESPIM4 GM INH (15:42)
== END 2018-10-04 03:25 | disposition home or self-care (01) ==
LOC: ER 00:44
PROVIDERS: Emergency Medicine
DX: R56.9 Unspecified convulsions (principal); I10 Essential (primary) hypertension; M19.90 Unspecified osteoarthritis, unspecified site; F17.210 Nicotine dependence, cigarettes, uncomplicated; Z86.73 Personal history of transient ischemic attack (TIA), and cerebral infarction without residual deficits; Z95.0 Presence of cardiac pacemaker; Z88.2 Allergy status to sulfonamides; Z79.2 Long term (current) use of antibiotics; Z79.899 Other long term (current) drug therapy; Z79.84 Long term (current) use of oral hypoglycemic drugs
CPT/HCPCS: 36415; 70450; 80053; 81001; 85025; 87086; 93005; 93010; 99285-25; G0480

== ENCOUNTER 2018-11-03 18:17 | Emergency (ER) | payer MEDICARE, OTHER ==
[~2018-11-03] VITALS: Ht 170.2 cm; Wt 65.3 kg
[~2018-11-03 18:17] MED LIST changes: +AMLO5 PO; +Azithromycin250 MG PO
[2018-11-03 20:23] LABS: BASOPHILS ABSOLUTE AUTO 0.05 K/mm3 (0.00-0.23); BASOPHILS PERCENT AUTO 1 % (0-2); EOSINOPHILS ABSOLUTE AUTO 0.14 K/mm3 (0.00-0.68); EOSINOPHILS PERCENT AUTO 2 % (0-6); Hematocrit 34.5 % (37.0-53.0); Hemoglobin 11.2 g/dL (13.5-17.5); IMMATURE GRAN ABSOLUTE AUTO 0.04 K/mm3 (0.00-0.10); IMMATURE GRAN PERCENT AUTO 1 % (0-1); LYMPHOCYTES ABSOLUTE AUTO 2.37 K/mm3 (0.84-5.20); LYMPHOCYTES PERCENT AUTO 32 % (21-46); MONOCYTES ABSOLUTE AUTO 0.62 K/mm3 (0.16-1.47); MONOCYTES PERCENT AUTO 8 % (4-13); Mean Corpuscular HGB 30.5 pg (26.0-34.0); Mean Corpuscular HGB Conc 32.5 g/dL (31.5-36.5); Mean Corpuscular Volume 94 fL (80-100); Mean Platelet Volume 11.2 fL (9.1-12.4); NEUTROPHILS ABSOLUTE AUTO 4.14 K/mm3 (1.96-9.15); NEUTROPHILS PERCENT AUTO 56 % (41-73); Platelet Count 277 K/mm3 (150-400); RDW Coefficient Variation 14.8 % (11.7-14.2); RDW Standard Deviation 51.6 fL (35.1-46.3); Red Blood Cell Count 3.67 M/mm3 (4.30-5.90); White Blood Cell Count 7.36 K/mm3 (4.00-11.30)
[2018-11-03 20:55] LABS: Alanine Aminotransfer (ALT/SGP 9 U/L (12-78); Albumin, Blood 2.9 g/dL (3.4-5.0); Albumin/Globulin Ratio 0.8 (0.8-1.8); Alk Phos 105 U/L (50-136); Anion Gap 8 mmol/L (6-16); Aspartate Aminotrans (AST/SGOT 11 U/L (12-37); Bilirubin, Total 0.2 mg/dL (0.1-1.0); Blood Urea Nitrogen 17 mg/dL (8-24); CO2, Blood 23 mmol/L (21-32); Calcium, Blood 8.3 mg/dL (8.5-10.1); Chloride, Blood 110 mmol/L (98-108); Creatinine, Blood 0.81 mg/dL (0.60-1.20); Globulin, Blood 3.5 g/dL (2.2-4.0); Glomerular Filtration Rate >60 (60-); Glucose, Blood 234 mg/dL (70-99); Potassium, Blood 4.1 mmol/L (3.5-5.5); Sodium, Blood 141 mmol/L (136-145); Total Protein, Blood 6.4 g/dL (6.4-8.2)
[2018-11-25] MEDS ORDERED: MAGN84 PO (15:40)
[2018-11-25] MEDS ORDERED: TYLENOL ARTHRITIS PO (15:41)
[2018-11-25] MEDS ORDERED: SODCHL1 PO (15:41)
[2018-11-25] MEDS ORDERED: VITAMIN B1 PO (15:41)
[2018-11-25] MEDS ORDERED: COMBIVENT RESPIM4 GM INH (15:42)
== END 2018-11-03 21:16 | disposition home or self-care (01) ==
LOC: ER 18:17
PROVIDERS: Physician Assistant
DX: N45.2 Orchitis (principal); F17.210 Nicotine dependence, cigarettes, uncomplicated; Z79.899 Other long term (current) drug therapy; Z79.84 Long term (current) use of oral hypoglycemic drugs; Z86.73 Personal history of transient ischemic attack (TIA), and cerebral infarction without residual deficits
CPT/HCPCS: 36415; 76870; 80053; 85025; 99284-25

== ENCOUNTER 2018-12-07 00:06 | Emergency (ER) | payer MEDICARE, OTHER ==
[~2018-12-07] VITALS: Ht 170.2 cm; Wt 77.1 kg
[~2018-12-07 00:06] MED LIST changes: -BIOTIN5000 MCG PO; +BIOTIN5000 MCG SL; +COMBIVENT RESPIM4 GM INH; -GABA100 PO; +MAGN84 PO; -PARO20 PO; +TYLENOL ARTHRITIS PO; +VITAMIN B1 PO; +[UNRECOGNIZED DRUG - OTHER] PO
[2018-12-07] MEDS ORDERED: Aspirin EC81 MG PO (00:50)
[2018-12-07] MEDS ORDERED: SPIR25 PO (00:51)
[2018-12-07] MEDS ORDERED: Vitamin D2000 UNIT PO (00:51)
[2018-12-07 01:10] LABS: BASOPHILS ABSOLUTE AUTO 0.06 K/mm3 (0.00-0.23); BASOPHILS PERCENT AUTO 1 % (0-2); EOSINOPHILS PERCENT AUTO 2 % (0-6); Hematocrit 34.1 % (37.0-53.0); Hemoglobin 10.9 g/dL (13.5-17.5); IMMATURE GRAN ABSOLUTE AUTO 0.03 K/mm3 (0.00-0.10); IMMATURE GRAN PERCENT AUTO 0 % (0-1); LYMPHOCYTES ABSOLUTE AUTO 2.63 K/mm3 (0.84-5.20); LYMPHOCYTES PERCENT AUTO 28 % (21-46); MONOCYTES PERCENT AUTO 9 % (4-13); Mean Corpuscular HGB 30.4 pg (26.0-34.0); Mean Corpuscular Volume 95 fL (80-100); Mean Platelet Volume 11.1 fL (9.1-12.4); NEUTROPHILS ABSOLUTE AUTO 5.72 K/mm3 (1.96-9.15); NEUTROPHILS PERCENT AUTO 60 % (41-73); Platelet Count 249 K/mm3 (150-400); RDW Coefficient Variation 15.7 % (11.7-14.2); RDW Standard Deviation 55.4 fL (35.1-46.3); Red Blood Cell Count 3.58 M/mm3 (4.30-5.90); White Blood Cell Count 9.54 K/mm3 (4.00-11.30)
[2018-12-07 01:32] LABS: Acetaminophen, Random <2.0 ug/mL (10.0-30.0); Alanine Aminotransfer (ALT/SGP 13 U/L (12-78); Albumin, Blood 2.6 g/dL (3.4-5.0); Albumin/Globulin Ratio 0.8 (0.8-1.8); Alk Phos 96 U/L (50-136); Anion Gap 6 mmol/L (6-16); Aspartate Aminotrans (AST/SGOT 15 U/L (12-37); Bilirubin, Total 0.2 mg/dL (0.1-1.0); Blood Urea Nitrogen 12 mg/dL (8-24); Bun/Creatinine Ratio 18.1 (12.0-20.0); CO2, Blood 23 mmol/L (21-32); Calcium, Blood 7.8 mg/dL (8.5-10.1); Chloride, Blood 113 mmol/L (98-108); Creatinine, Blood 0.66 mg/dL (0.60-1.20); Ethanol (Alcohol), Blood, Med <3 mg/dL; Globulin, Blood 3.2 g/dL (2.2-4.0); Glomerular Filtration Rate >60 (60-); Glucose, Blood 138 mg/dL (70-99); Potassium, Blood 3.8 mmol/L (3.5-5.5); Salicylate 4.4 mg/dL (2.8-20.0); Sodium, Blood 142 mmol/L (136-145); Total Protein, Blood 5.8 g/dL (6.4-8.2)
[2018-12-07 01:44] LABS: Source, Urine Clean Catch
[2018-12-07 01:46] LABS: Blood, Urine 1+ (Neg); Glucose Qualitative, Urine Neg (Neg); Ketones, Urine 1+ (Neg); Leukocyte Esterase, Urine 1+ (Neg); Nitrite, Urine Neg (Neg); Protein, Urine 2+ (Neg); Urobilinogen, Urine 1+ (Normal)
[2018-12-07 01:55] LABS: Appearance, Urine Hazy (Clear); Bilirubin, Urine 1+ (Neg); Color, Urine Yellow (P-Yellow)
[2018-12-07 01:56] LABS: Amorphous Light (0-Heavy); Bacteria Rare /hpf; Mucus Light (0-Heavy); Squamous Epithelial Cells Not Seen /hpf (Few)
[2018-12-07 02:00] LABS: U Amphetamine Screen Not Detected; U Barbituate Screen Not Detected; U Benzodiazapine Screen Not Detected; U Buprenorphine Screen Not Detected; U Cannabinoids Screen DETECTED; U Cocaine Screen Not Detected; U Methadone Screen Not Detected; U Methamphetamine Screen Not Detected; U Opiates Screen Not Detected; U Oxycodone Screen Not Detected; U Phencyclidine Screen Not Detected; U Propoxyphene Screen Not Detected
== END 2018-12-07 02:38 | disposition home or self-care (01) ==
LOC: ER 00:06
PROVIDERS: Emergency Medicine
DX: R53.1 Weakness (principal); Z88.8 Allergy status to other drugs, medicaments and biological substances; Z88.1 Allergy status to other antibiotic agents; Z79.899 Other long term (current) drug therapy; Z79.82 Long term (current) use of aspirin; Z79.84 Long term (current) use of oral hypoglycemic drugs; Z86.73 Personal history of transient ischemic attack (TIA), and cerebral infarction without residual deficits; F17.210 Nicotine dependence, cigarettes, uncomplicated
CPT/HCPCS: 36415; 71046; 80053; 81001; 82947; 83690; 84443; 85025; 87086; 96360; 99284-25; G0480; J7030

== ENCOUNTER 2018-12-09 09:56 | Inpatient (IN) | payer MEDICARE, OTHER ==
[~2018-12-09] VITALS: Ht 172.7 cm; Wt 61.7 kg
[~2018-12-09 09:56] MED LIST changes: +Aspirin EC81 MG PO; -BIOTIN5000 MCG SL; +Meribin5 MG PO; +Super B-50 Com1 EACH PO; -VITAMIN B1 PO; +Vitamin D2000 UNIT PO
[2018-12-09 10:44] LABS: BASOPHILS ABSOLUTE AUTO 0.08 K/mm3 (0.00-0.23); BASOPHILS PERCENT AUTO 1 % (0-2); EOSINOPHILS ABSOLUTE AUTO 0.24 K/mm3 (0.00-0.68); EOSINOPHILS PERCENT AUTO 3 % (0-6); Hematocrit 39.7 % (37.0-53.0); IMMATURE GRAN ABSOLUTE AUTO 0.04 K/mm3 (0.00-0.10); IMMATURE GRAN PERCENT AUTO 0 % (0-1); LYMPHOCYTES ABSOLUTE AUTO 1.87 K/mm3 (0.84-5.20); LYMPHOCYTES PERCENT AUTO 20 % (21-46); MONOCYTES ABSOLUTE AUTO 0.85 K/mm3 (0.16-1.47); MONOCYTES PERCENT AUTO 9 % (4-13); Mean Corpuscular HGB 30.2 pg (26.0-34.0); Mean Corpuscular HGB Conc 32.7 g/dL (31.5-36.5); NEUTROPHILS ABSOLUTE AUTO 6.24 K/mm3 (1.96-9.15); NEUTROPHILS PERCENT AUTO 67 % (41-73); Platelet Count 306 K/mm3 (150-400); RDW Standard Deviation 51.8 fL (35.1-46.3); Red Blood Cell Count 4.31 M/mm3 (4.30-5.90); White Blood Cell Count 9.32 K/mm3 (4.00-11.30)
[2018-12-09 10:51] LABS: Mean Corpuscular Volume 92 fL (80-100)
[2018-12-09 11:12] LABS: Alanine Aminotransfer (ALT/SGP 16 U/L (12-78); Albumin, Blood 3.1 g/dL (3.4-5.0); Albumin/Globulin Ratio 0.8 (0.8-1.8); Alk Phos 97 U/L (50-136); Anion Gap 7 mmol/L (6-16); Aspartate Aminotrans (AST/SGOT 16 U/L (12-37); Bilirubin, Total 0.6 mg/dL (0.1-1.0); Blood Urea Nitrogen 6 mg/dL (8-24); Bun/Creatinine Ratio 11.3 (12.0-20.0); CO2, Blood 27 mmol/L (21-32); Calcium, Blood 8.5 mg/dL (8.5-10.1); Chloride, Blood 107 mmol/L (98-108); Creatinine, Blood 0.53 mg/dL (0.60-1.20); Globulin, Blood 3.9 g/dL (2.2-4.0); Glomerular Filtration Rate >60 (60-); Glucose, Blood 108 mg/dL (70-99); Potassium, Blood 3.8 mmol/L (3.5-5.5); Sodium, Blood 141 mmol/L (136-145)
[2018-12-09] MEDS ORDERED: **incomplete med rec (12:10)
[2018-12-09] MEDS ORDERED: TAMS.4ER PO (12:24)
[2018-12-09] MEDS ORDERED: GABA600 PO ×3 (13:36→13:44)
[2018-12-09 14:03] LABS: CHOL/HDL RATIO 5.1; Cholesterol 198 mg/dL (50-200); HDL Cholesterol 39 mg/dL (>39); LDL/HDL RATIO 3.1; Low Density Lipoprotein Chol 121 mg/dL (0-110); Triglycerides 189 mg/dL (30-160); Very Low Density Lipoprot Chol 37 mg/dL (6-32)
[2018-12-09 16:06] LABS: Source, Urine Catheter
[2018-12-09 16:13] LABS: Bilirubin, Urine Neg (Neg); Blood, Urine Neg (Neg); Glucose Qualitative, Urine Neg (Neg); Ketones, Urine Neg (Neg); Leukocyte Esterase, Urine Neg (Neg); Nitrite, Urine Neg (Neg); Protein, Urine 1+ (Neg); Urobilinogen, Urine NORM (Normal)
[2018-12-09 16:18] LABS: Appearance, Urine Clear (Clear); Color, Urine Yellow (P-Yellow)
[2018-12-09 16:25] LABS: U Amphetamine Screen Not Detected; U Barbituate Screen Not Detected; U Benzodiazapine Screen DETECTED; U Buprenorphine Screen Not Detected; U Cannabinoids Screen DETECTED; U Cocaine Screen Not Detected; U Methadone Screen Not Detected; U Methamphetamine Screen Not Detected; U Opiates Screen Not Detected; U Oxycodone Screen Not Detected; U Phencyclidine Screen Not Detected; U Propoxyphene Screen Not Detected
--- NOTE | 2018-12-09 16:53 | NUR ---
Echocardiogram completed.
--- NOTE | 2018-12-10 06:21 | NUR ---
SHIFT SUMMARY 1954 RECEIVED PT TO RM 349 VIA GURNEY FROM ER. ADMITTED FOR ACUTE CVA. RECEIVED REPORT FROM LORI MORENO. PT WITH HX OF PREVIOUS STROKES. WOKE IN AM AND COULDN'T SEE OR HEAR HIS . SITTING UP TO EOB PT STARTED VOIDING ON CARPET AND THEN LAY BACK ON BED. PT WOKE AGAIN A COUPLE OF HOURS LATER, STILL UNABLE TO RESPOND APPROPRIATELY TO . PT JUST YELLING "WHAT" AND THEN CURSE WORDS OVER AND OVER. CALLING EMS. PT BROUGHT TO ER AND FOUND TO HAVE ACUTE INFARCT. NO APPARENT FACIAL DEFICITS OR IN EXTREMITIES. ABLE TO MOVE AROUND WELL. DOES NOT FOLLOW DIRECTIONS AT ALL. PT HAS BEEN AGITATED SINCE COMING TO . PULLING ON IV TUBING FREQUENTLY AND EVENTUALLY PULLING IV OUT IN RW. WRIST RESTAINTS PLACED. PT WOULD NOT LEAVE TELE MX LEADS ON EITHER. PULLED THEM OFF FREQUENTLY, EVEN WITH WRIST RESTRAINTS. SAMREEN VEST PLACED TO COVER LINES AND TUBING WHICH HAS HELPED, BUT PT HAS STILL REMAINED AGITATED. HALDOL GIVEN BUT DOES NOT EVEN EFFECT HIM AT ALL. ATIVAN OBTAINED PER ORDERS EARLIER, WHICH SEEMED TO HELP THE BEST, BUT DID NOT LAST THAT LONG. PT HAS BEEN AWAKE FOR SEVERAL HOURS, VERY AGITATED, INCREASING HR D/T AGITATION. BP ALSO BECOMING ELEVATED WITH INCREASED AGIATATION. HAS BEEN AT BS, ATTEMPTING TO CALM PT, BUT UNSUCCESSFUL. PT DOES NOT FOLLOW INSTRUCTIONS. GOT OUT OF RESTRAINTS A COUPLE OF TIMES. VOIDED ON FLOOR AND IN BED, EVEN THOUGH URINAL PLACED AND STAFF AND ATTEMPTED TO ASSIST HIM MULTIPLE TIMES WITH URINAL. DR ALVAREZ NOTIFIED OF AGITATION; NEW ORDERS RECEIVED. PT FINALLY RESTING QUIETLY AT THIS MOMENT NOW. BED ALARM ON FOR SAFETY. AT BS.
--- NOTE | 2018-12-10 08:47 | NUR ---
PATIENT DID NOT EAT BREAKFAST THIS SHIFT DUE TO BEING NPO A THIS TIME.
--- NOTE | 2018-12-10 12:54 | NUR ---
PATIENT DID NOT EAT LUNCH THIS SHIFT DUE TO BEING NPO AT THIS TIME.
--- NOTE | 2018-12-10 17:47 | NUR ---
PT REMAINED RESTLESS T/O THE DAY, PT ABLE TO MOVE ALL EXTREMITIES WELL, UNABLE TO MAKE VERBAL COMMUNICATION OR FOLLOW DIRECTIONS, PTS WAS REMOVED FROM RESTRAINTS THIS AM, PTS FAMILY REMAINED IN THE ROOM T/O THE DAY, DR. COLMENARES WAS CALLED FOR CONSULT, PT WAS MEDICATED FOR PAIN X2 THIS AFTERNOON AND APPEARS TO HAVE CALMED DOWN SIGNIFICANTLY, BED ALARM WREATH INSPECTOR LIGHT IN REACH, WILL CONTINUE TO MONITOR AND ASSES FOR CHANGES
--- NOTE | 2018-12-10 17:52 | NUR ---
PATIENT DID NOT EAT DINNER THIS SHIFT DUE TO BEING NPO AT THIS TIME.
--- NOTE | 2018-12-10 22:42 | NUR ---
PATIENT IS RESTLESS ROLLING BACK AND FORTH IN BED. PATIENT WAS MEDICATED WITH ATIVAN BY DAYSHIFT RN AT BEGINING OF SHIFT. PATIENTS ASKING IF HE CAN HAVE SOMETHING TO RELAX HIM AT 1999. PATIENT PULLED OUT IV. NEW IV INSERTED AND MEDICATED WITH FENTANYL. JULIANO FROM [facility] CAME TO TAKE PATIENT FOR CTA. PATIENT WAS UNABLE TO LAY FLAT FOR THIS. RADIOLOGY TRANSFERED PATIENT BACK TO ROOM. AT BEDSIDE AND STATES SHE DOES NOT WANT THE PATIENT TO WEAR SAMREEN VEST OR WRIST RESTRAINTS. STATES SHE WILL WATCH HIM AND MAKE SURE HE DOES NOT PULL OUT HIS IV. BED LOWERED AND LOCKED, CALL LIGHT IN REACH.
--- NOTE | 2018-12-11 04:47 | NUR ---
*SHIFT SUMMAARY* PATIENT OPENS EYES AND MUMBLES WORDS. PATIENT DOES NOT ANSWER QUESTIONS APPROPRIATELY. PATIENT TOSSED AND TURNED IN BED FROM SIDE TO SIDE. DOES NOT FOLLOW COMMANDS APPROPRIATELY. PATIENT PULLED OUT IV AT BEGINING OF SHIFT. RADIOLOGY CAME TO TAKE PATIENT FOR CTA. NEW IV STARTED, ORDER OBTAINED FOR WRIST RESTRAINTS FOR SAFETY AND TO PREVENT PULLING OUT IV'S. PATIENT'S AT BEDSIDE AND REFUSED TO USE ANY FORM OF RESTRAINT. STATES SHE IS SLEEPING IN ROOM AND WILL MAKE SURE HE DOES NOT PULL IV OUT. RADIOLOGY CAME TO TAKE PATIENT FOR CTA. PATIENT WAS UNABLE TO FOLLOW DIRECTIONS AND LAY ON BACK. TEST WAS NOT COMPLETED AND PATIENT WAS BROUGHT BACK TO THE ROOM. PATIENT CONTINUED TO TOSS AND TURN THROUGHOUT THE NIGHT. PATIENT WAS MEDICATED FOR COMFORT PER REQUEST OF . HOSPITALIST WAS NOTIFED THAT THE CTA WAS NOT DONE AND THEY REQUESTED TO NOTIFY DAYSHIFT RN TO PASS ALONG TO DAY DOCS WHO ORDERED IT. BED LOWERED AND LOCKED WITH ALARM ON AND CALL LGIHT IN REACH.
--- NOTE | 2018-12-11 13:24 | NUR ---
I HAVE EXPRESSED TO THE PATIENTS FAMILY THE CONCERNS ABOUT NOT BEING ABLE TO FEED THE PATIENT WHILE THE PATIENT IS LETHARGIC. I WILL ASSESS FOR CHANGES IN THE PATIENTS STATUS. PATIENTS FAMILY MEMBER DID GET THE PATIENT TO EAT. I DID EDUCATE THE FAMILY ON THE DYSPHAGIA PRECAUTIONS.
--- NOTE | 2018-12-11 13:30 | NUR ---
Met pt. in bed restless manc confused. spoke to a family member and prayed for the pt.
--- NOTE | 2018-12-11 18:21 | NUR ---
SHIFT SUMMARY NO ACUTE CHANGES WITH PATIENT. HE IS MUCH LESS AGITATED THAN HE WAS THIS MORNING. PATIENT'S FAMILY MEMBER OUT OF THE ROOM AND PATIENT IS CALM. HIS USUALLY STAYS THE NIGHT. SHE TRIED TO FEED HIM TODAY, AND I HAVE EXPRESSED THE NEED TO LET THE PATIENT SLEEP IF HE IS TOO LETHARGIC. I HAVE EXPRESSED MY CONCERNS WITH DR. MCKEON AND WITH PALLIATIVE CARE ABOUT THE PATIENT'S FAMILY MEMBER AND HER INABILITY TO UNDERSTAND THE PATIENT'S CURRENT CONDITION. SHE HAS FORCED HIM TO CONTINUE MOVING TO GET BETTER ALTHOUGH IT SEEMS THOUGH THE PATIENT IS NOT READY. SHE HAS FORCEFULLY GOTTEN THE PATIENT UP MORE THAN ONCE TODAY, AND CONTINUED TO CUE THE PATIENT TO EAT, EVEN IF SHE HAD TO WAKE HIM UP TO TAKE A BITE.
--- NOTE | 2018-12-11 19:29 | NUR ---
Pt has suffered CVA. Notes state that he may have lost some sensory input from this event that may be contributing to his distress. He at least seems very hard of hearing and has his eyes squeezed shut during the visit. Pt is agitated and turning around in bed continuously. Dr. Cruz is in room. is at bedside. Dr. Cruz is reviewing plan of care with her. Spoke to Magalys, nurse and Dr. Cruz. Plan is to wait to see if patient improves. Comfort care is discussed among us, but need to give the pt a chance to recover before offering this to the . Will remain available.
--- NOTE | 2018-12-12 05:43 | NUR ---
SHIFT SUMMARY PT LETHARGIC DOESN'T REALLY HAVE MUCH VERBAL RESPONSES. TYLENOL GIVEN FOR RESTLESSNESS AND AYOUB PER PT'S . BP ELEVATED AT 174/142. GIVEN IV HYDRALAZINE FOR BP OF 190/87. HE WAS ABLE TO SLEEP T/O NIGHT. AT BEDSIDE THROUGH NIGHT. WILL USE URINAL C ASSISTANCE.BED ALARM IN USE
--- NOTE | 2018-12-12 17:40 | NUR ---
PT HAS BEEN IN BED ALL DAY. PT WAS ABLE WITH A TWO PERSON TRANSFER TO AMBULATE INTO RESTROOM. PT HAS HAD HIS WITH HIM MOST OF THE DAY AND IS LESS IMPULSIVE WITH HER IN THE ROOM. PT'S TRYS TO HELP OUT MUCH SHE CAN TRYING TO GET READY FOR WHEN HE GOES HOME WITH HER. PT DOES GET MUCH MORE ANXIOUS AND IMPULSIVE WHEN IS NOT PRESENT. PT TRIED TO GET OUT OF BED MULTIPLE TIMES WHEN SHE WAS OUT OF THE ROOM. PT TRYS TO ANSWER QUESTIONS BEST HE CAN GET CONFUSED OR WILL HAVE SOME TROUBLE GETTING WHAT HE WANTS COMMUNICATED. WILL CONTINUE TO MONITOR.
--- NOTE | 2018-12-13 07:24 | NUR ---
12/13/18 0600 VITALS STABLE. PT SLEPT MOST OF NIGHT. STAYED WITH PT ALL NIGHT. NO COMPLAINTS OF DISCOMFORT OR PROBLEMS. STILL VERY DISORIENTED.
--- NOTE | 2018-12-13 17:42 | NUR ---
PT AOX2 WITH CONFUSION. PT MUCH MORE ALERT TODAY COMAPRED TO YESTERDAY. PT HAS BEEN TO RESTROOM X 2. PT DOING WELL WALKING WITH WALKER. BED BATH GIVEN AND POWDERED. PT DID TRY TO GET OUT OF BED ON HIS OWN AND TOOK SOME TIME TO REDIRECT. PT IS UP IN CHAIR EATING HIS DINNER AND HAS BEEN LAUGHING THIS AFTERNOON. PT SEEM TO BE IMPROVING WITH HIS COMUNICATION.
--- NOTE | 2018-12-14 06:41 | NUR ---
12/14/18 0600 STAYED ALL NIGHT AND PT IS MORE COOPERATIVE WHEN SHE IS PRESENT. UP TO THE BATHROOM TWICE FOR VOIDINGS. VITALS STABLE. PT HAS BEEN VERBALLY ABUSIVE AT TIMES WITH AND STAFF.
[2018-12-14] MEDS ORDERED: QUET100 PO (11:52)
[2018-12-14] MEDS ORDERED: Nicotine Patch1 EAC5 TOP (11:52)
--- NOTE | 2018-12-14 13:40 | NUR ---
Met pt. sitting in a chairm resting ans no longer restless he can respond encouraged p[t and offered prayers.
--- NOTE | 2018-12-14 19:06 | NUR ---
DISCHARGED TO [facility] BY W THIS EVENING AT 174. WITH PT UNTIL HE LEFT. 1 PERSON ASSIST WITH TRANSFER TO /. HAS BEEN USING FWW TO BATHROOM THROUGH DAY. WAS CHEERFUL THIS MORNING BUT MORE EASILY AGITATED THIS AFTERNOON LATE AND DEMANDING A CIGARETTE AND EXPRESSING FRUSTRATION WHEN I WENT WITH HIM TO THE BATHROOM. CALLED [facility] AND GAVE REPORT TO NURSING STAFF. HAD BEEN VOIDING SMALL AMOUNTS AFTER A DELAYED START TO STREAM AND WAS BLADDER SCANNED FOR NO FLUID IN BLADDER VIEWED.
== END 2018-12-14 17:46 | DRG 65 ==
LOC: ER 09:56 → ERHOLD 13:31 → MEDS 13:31 → ENPENDDIS 12-14 11:35 → MEDS 12-14 17:46
PROVIDERS: Emergency Medicine; ADMIT Family Medicine
DX: I63.512 Cerebral infarction due to unspecified occlusion or stenosis of left middle cerebral artery (principal); F03.91 Unspecified dementia, unspecified severity, with behavioral disturbance; Z79.82 Long term (current) use of aspirin; M19.90 Unspecified osteoarthritis, unspecified site; I10 Essential (primary) hypertension; G62.9 Polyneuropathy, unspecified; F17.210 Nicotine dependence, cigarettes, uncomplicated; K40.90 Unilateral inguinal hernia, without obstruction or gangrene, not specified as recurrent; J44.9 Chronic obstructive pulmonary disease, unspecified; I27.20 Pulmonary hypertension, unspecified; E11.40 Type 2 diabetes mellitus with diabetic neuropathy, unspecified; H47.619 Cortical blindness, unspecified side of brain; E78.00 Pure hypercholesterolemia, unspecified; B36.0 Pityriasis versicolor; Z79.84 Long term (current) use of oral hypoglycemic drugs; Z66 Do not resuscitate; Z95.0 Presence of cardiac pacemaker
CPT/HCPCS: 36415; 70450; 70496; 70498; 71045; 71046; 80053; 80061; 81001; 82947; 83690; 84443; 85025; 87086; 92526; 92610; 93005; 93010; 93308; 93321; 93880; 96360; 96374; 96375; 97116; 97162; 97166; 97530; 97535; 99284-25; 99285-25; G0480; J0360; J1200; J1630; J1650; J1815; J2060; J3010; J7030; J7042; Q9967

== ENCOUNTER 2019-01-22 13:28 | Emergency (ER) | payer MEDICARE, OTHER ==
[~2019-01-22] VITALS: Ht 165.1 cm; Wt 61.2 kg
[~2019-01-22 13:28] MED LIST changes: +**incomplete med rec; +GABA600 PO; +Nicotine Patch1 EAC5 TOP; +QUET100 PO
[2019-01-22 15:02] LABS: BASOPHILS ABSOLUTE AUTO 0.06 K/mm3 (0.00-0.23); BASOPHILS PERCENT AUTO 1 % (0-2); EOSINOPHILS PERCENT AUTO 1 % (0-6); Hematocrit 42.2 % (37.0-53.0); Hemoglobin 13.4 g/dL (13.5-17.5); IMMATURE GRAN ABSOLUTE AUTO 0.04 K/mm3 (0.00-0.10); IMMATURE GRAN PERCENT AUTO 0 % (0-1); LYMPHOCYTES ABSOLUTE AUTO 1.92 K/mm3 (0.84-5.20); LYMPHOCYTES PERCENT AUTO 20 % (21-46); MONOCYTES ABSOLUTE AUTO 0.68 K/mm3 (0.16-1.47); MONOCYTES PERCENT AUTO 7 % (4-13); Mean Corpuscular HGB 29.6 pg (26.0-34.0); Mean Corpuscular HGB Conc 31.8 g/dL (31.5-36.5); Mean Corpuscular Volume 93 fL (80-100); Mean Platelet Volume 11.1 fL (9.1-12.4); NEUTROPHILS ABSOLUTE AUTO 6.69 K/mm3 (1.96-9.15); NEUTROPHILS PERCENT AUTO 71 % (41-73); Platelet Count 366 K/mm3 (150-400); RDW Coefficient Variation 15.3 % (11.7-14.2); RDW Standard Deviation 52.7 fL (35.1-46.3); Red Blood Cell Count 4.53 M/mm3 (4.30-5.90); White Blood Cell Count 9.49 K/mm3 (4.00-11.30)
[2019-01-22 16:23] LABS: Alanine Aminotransfer (ALT/SGP 18 U/L (12-78); Albumin/Globulin Ratio 0.8 (0.8-1.8); Alk Phos 98 U/L (50-136); Anion Gap 8 mmol/L (6-16); Aspartate Aminotrans (AST/SGOT 18 U/L (12-37); Bilirubin, Total 0.2 mg/dL (0.1-1.0); Blood Urea Nitrogen 13 mg/dL (8-24); Bun/Creatinine Ratio 19.6 (12.0-20.0); CO2, Blood 24 mmol/L (21-32); Calcium, Blood 8.9 mg/dL (8.5-10.1); Chloride, Blood 111 mmol/L (98-108); Creatinine, Blood 0.66 mg/dL (0.60-1.20); Globulin, Blood 3.7 g/dL (2.2-4.0); Glomerular Filtration Rate >60 (60-); Glucose, Blood 217 mg/dL (70-99); Potassium, Blood 4.2 mmol/L (3.5-5.5); Sodium, Blood 143 mmol/L (136-145); Total Protein, Blood 6.7 g/dL (6.4-8.2)
[2019-01-22] MEDS ORDERED: LOPE2C PO (16:23)
== END 2019-01-22 17:02 | disposition home or self-care (01) ==
LOC: ER 13:28
PROVIDERS: Physician Assistant
DX: R19.7 Diarrhea, unspecified (principal); E11.9 Type 2 diabetes mellitus without complications; J44.9 Chronic obstructive pulmonary disease, unspecified; I10 Essential (primary) hypertension; F03.90 Unspecified dementia, unspecified severity, without behavioral disturbance, psychotic disturbance, mood disturbance, and anxiety; F17.210 Nicotine dependence, cigarettes, uncomplicated; Z79.899 Other long term (current) drug therapy; Z79.82 Long term (current) use of aspirin
CPT/HCPCS: 80053; 82272; 83690; 85025; 93005; 93010; 99283-25

== ENCOUNTER → 2019-02-03 | Outpatient (CLI) | payer MEDICARE, OTHER ==
[~2019-02-03] MED LIST changes: +LOPE2C PO
[2019-02-03 18:12] LABS: Adenovirus F 40/41 Not Detected (NOT DETECT); Astrovirus Not Detected (NOT DETECT); Campylobacter Sp Not Detected (NOT DETECT); Cryptosporidium Not Detected (NOT DETECT); Cyclospora Cayetanensis Not Detected (NOT DETECT); E. Coli O157 Not Detected (NOT DETECT); Entamoeba Histolytica Not Detected (NOT DETECT); Enteroaggregative E. coli-EAEC Not Detected (NOT DETECT); Enteropathogenic E. coli-EPEC Not Detected (NOT DETECT); Enterotoxigenic E. coli-ETEC Not Detected (NOT DETECT); Giardia Lamblia Not Detected (NOT DETECT); Norovirus GI/GII Not Detected (NOT DETECT); Plesiomonas Shigelloides Not Detected (NOT DETECT); Rotavirus A Not Detected (NOT DETECT); Salmonella Sp Not Detected (NOT DETECT); Sapovirus Not Detected (NOT DETECT); Shiga Toxin-prod E. coli-STEC Not Detected (NOT DETECT); Shigella/Enteroin E. coli-EIEC Not Detected (NOT DETECT); Vibrio Cholerae Not Detected (NOT DETECT); Vibrio Sp Not Detected (NOT DETECT); Yersinia Enterocolitica Not Detected (NOT DETECT)
== END | disposition home or self-care (01) ==
LOC: LAB 15:18 → LAB SHORT 15:18
PROVIDERS: Family Medicine
DX: R19.7 Diarrhea, unspecified (principal)
CPT/HCPCS: 87507

== ENCOUNTER 2019-02-15 12:11 | Emergency (ER) | payer MEDICARE, OTHER ==
[~2019-02-15] VITALS: Ht 167.6 cm; Wt 62.6 kg
[2019-02-15 13:17] LABS: BASOPHILS ABSOLUTE AUTO 0.08 K/mm3 (0.00-0.23); BASOPHILS PERCENT AUTO 1 % (0-2); EOSINOPHILS ABSOLUTE AUTO 0.25 K/mm3 (0.00-0.68); EOSINOPHILS PERCENT AUTO 3 % (0-6); Hematocrit 38.3 % (37.0-53.0); Hemoglobin 12.3 g/dL (13.5-17.5); IMMATURE GRAN ABSOLUTE AUTO 0.03 K/mm3 (0.00-0.10); IMMATURE GRAN PERCENT AUTO 0 % (0-1); LYMPHOCYTES ABSOLUTE AUTO 2.25 K/mm3 (0.84-5.20); LYMPHOCYTES PERCENT AUTO 26 % (21-46); MONOCYTES ABSOLUTE AUTO 0.62 K/mm3 (0.16-1.47); MONOCYTES PERCENT AUTO 7 % (4-13); Mean Corpuscular HGB 29.3 pg (26.0-34.0); Mean Corpuscular HGB Conc 32.1 g/dL (31.5-36.5); Mean Corpuscular Volume 91 fL (80-100); NEUTROPHILS ABSOLUTE AUTO 5.31 K/mm3 (1.96-9.15); NEUTROPHILS PERCENT AUTO 62 % (41-73); Platelet Count 303 K/mm3 (150-400); RDW Coefficient Variation 15.8 % (11.7-14.2); White Blood Cell Count 8.54 K/mm3 (4.00-11.30)
[2019-02-15 13:42] LABS: Alanine Aminotransfer (ALT/SGP 17 U/L (12-78); Albumin, Blood 3.1 g/dL (3.4-5.0); Albumin/Globulin Ratio 0.8 (0.8-1.8); Alk Phos 104 U/L (50-136); Anion Gap 9 mmol/L (6-16); Aspartate Aminotrans (AST/SGOT 11 U/L (12-37); Bilirubin, Total 0.6 mg/dL (0.1-1.0); Blood Urea Nitrogen 9 mg/dL (8-24); Bun/Creatinine Ratio 14.6 (12.0-20.0); CO2, Blood 23 mmol/L (21-32); Calcium, Blood 9.2 mg/dL (8.5-10.1); Chloride, Blood 101 mmol/L (98-108); Creatinine, Blood 0.62 mg/dL (0.60-1.20); Globulin, Blood 3.8 g/dL (2.2-4.0); Glomerular Filtration Rate >60 (60-); Glucose, Blood 211 mg/dL (70-99); Sodium, Blood 133 mmol/L (136-145); Total Protein, Blood 6.9 g/dL (6.4-8.2)
[2019-02-15] MEDS ORDERED: Augmentin 875-1 EACH PO (19:21)
[2019-02-15] MEDS ORDERED: METR500 PO (19:21)
== END 2019-02-15 19:34 | disposition home or self-care (01) ==
LOC: ER 12:11
PROVIDERS: Physician Assistant
DX: K52.9 Noninfective gastroenteritis and colitis, unspecified (principal); Z88.8 Allergy status to other drugs, medicaments and biological substances; Z79.899 Other long term (current) drug therapy; Z86.73 Personal history of transient ischemic attack (TIA), and cerebral infarction without residual deficits; F17.200 Nicotine dependence, unspecified, uncomplicated
CPT/HCPCS: 74177; 80053; 83690; 85025; 99284-25; Q9967

== ENCOUNTER 2019-02-27 13:31 | Emergency (ER) | payer MEDICARE, OTHER ==
[~2019-02-27] VITALS: Ht 160 cm; Wt 62.6 kg
== END 2019-02-27 14:13 | disposition home or self-care (01) ==
LOC: ER 13:31
DX: K40.90 Unilateral inguinal hernia, without obstruction or gangrene, not specified as recurrent (principal); Z88.1 Allergy status to other antibiotic agents; Z88.8 Allergy status to other drugs, medicaments and biological substances; Z79.899 Other long term (current) drug therapy; Z79.82 Long term (current) use of aspirin; F17.210 Nicotine dependence, cigarettes, uncomplicated
CPT/HCPCS: 99283

== ENCOUNTER → 2019-02-27 | Outpatient (CLI) | payer MEDICARE, OTHER ==
[~2019-02-27] MED LIST changes: +Augmentin 875-1 EACH PO; +METR500 PO
== END | disposition home or self-care (01) ==
LOC: LAB SHORT 15:21 → LAB 15:21
DX: N47.7 Other inflammatory diseases of prepuce (principal)
CPT/HCPCS: 87070; 87205

== ENCOUNTER → 2019-03-04 | Outpatient (CLI) | payer MEDICARE, OTHER ==
[~2019-03-04] MED LIST changes: +IBUP800 PO; +MELA3 PO; +Metformin HCl500 MG PO; +Percocet 5-3251 EACH PO
== END | disposition home or self-care (01) ==
LOC: LAB SHORT 16:28 → LAB 16:28
DX: N39.0 Urinary tract infection, site not specified (principal)
CPT/HCPCS: 87086

== ENCOUNTER 2019-03-06 18:44 | Emergency (ER) | payer MEDICARE, OTHER ==
[~2019-03-06] VITALS: Ht 170.2 cm; Wt 69.8 kg
[~2019-03-06 18:44] MED LIST changes: -IBUP800 PO; -MELA3 PO; -Meribin5 MG PO; +Meribin5 MG SL; -Metformin HCl500 MG PO; -Percocet 5-3251 EACH PO; -QUET100 PO
[2019-03-06] MEDS ORDERED: Percocet 5-3251 EACH PO (20:42)
[2019-03-06] MEDS ORDERED: IBUP800 PO (20:42)
== END 2019-03-06 21:09 | disposition home or self-care (01) ==
LOC: ER 18:44
DX: S22.42XA Multiple fractures of ribs, left side, initial encounter for closed fracture (principal); S01.01XA Laceration without foreign body of scalp, initial encounter; S40.012A Contusion of left shoulder, initial encounter; W10.9XXA Fall (on) (from) unspecified stairs and steps, initial encounter; Z88.8 Allergy status to other drugs, medicaments and biological substances; Z88.1 Allergy status to other antibiotic agents; Z79.899 Other long term (current) drug therapy; Z79.82 Long term (current) use of aspirin; Z86.73 Personal history of transient ischemic attack (TIA), and cerebral infarction without residual deficits; F03.90 Unspecified dementia, unspecified severity, without behavioral disturbance, psychotic disturbance, mood disturbance, and anxiety; F17.210 Nicotine dependence, cigarettes, uncomplicated
CPT/HCPCS: 36415; 70450; 71101; 73030; 93005; 93010; 96374; 96375; 96376; 99284-25; A9270; J1170; J1885; J2405

== ENCOUNTER 2019-03-08 10:06 | Inpatient (IN) | payer MEDICARE, OTHER ==
[~2019-03-08] VITALS: Ht 165.1 cm; Wt 61.4 kg
[~2019-03-08 10:06] MED LIST changes: +IBUP800 PO; +Percocet 5-3251 EACH PO
[2019-03-08 11:15] LABS: BASOPHILS ABSOLUTE AUTO 0.07 K/mm3 (0.00-0.23); BASOPHILS PERCENT AUTO 1 % (0-2); EOSINOPHILS PERCENT AUTO 0 % (0-6); Hematocrit 38.1 % (37.0-53.0); Hemoglobin 12.4 g/dL (13.5-17.5); IMMATURE GRAN ABSOLUTE AUTO 0.07 K/mm3 (0.00-0.10); IMMATURE GRAN PERCENT AUTO 1 % (0-1); LYMPHOCYTES ABSOLUTE AUTO 1.02 K/mm3 (0.84-5.20); LYMPHOCYTES PERCENT AUTO 7 % (21-46); MONOCYTES ABSOLUTE AUTO 1.02 K/mm3 (0.16-1.47); MONOCYTES PERCENT AUTO 7 % (4-13); Mean Corpuscular HGB 29.4 pg (26.0-34.0); Mean Corpuscular HGB Conc 32.5 g/dL (31.5-36.5); Mean Corpuscular Volume 90 fL (80-100); Mean Platelet Volume 10.9 fL (9.1-12.4); NEUTROPHILS ABSOLUTE AUTO 13.06 K/mm3 (1.96-9.15); NEUTROPHILS PERCENT AUTO 86 % (41-73); Platelet Count 258 K/mm3 (150-400); RDW Coefficient Variation 16.1 % (11.7-14.2); RDW Standard Deviation 52.8 fL (35.1-46.3); Red Blood Cell Count 4.22 M/mm3 (4.30-5.90); White Blood Cell Count 15.24 K/mm3 (4.00-11.30)
[2019-03-08 11:50] LABS: Alanine Aminotransfer (ALT/SGP 20 U/L (12-78); Albumin, Blood 3.3 g/dL (3.4-5.0); Albumin/Globulin Ratio 0.9 (0.8-1.8); Alk Phos 82 U/L (50-136); Anion Gap 6 mmol/L (6-16); Aspartate Aminotrans (AST/SGOT 18 U/L (12-37); Bilirubin, Total 0.6 mg/dL (0.1-1.0); Blood Urea Nitrogen 15 mg/dL (8-24); Bun/Creatinine Ratio 25.5 (12.0-20.0); CO2, Blood 26 mmol/L (21-32); Calcium, Blood 8.8 mg/dL (8.5-10.1); Chloride, Blood 105 mmol/L (98-108); Creatinine, Blood 0.59 mg/dL (0.60-1.20); Globulin, Blood 3.7 g/dL (2.2-4.0); Glomerular Filtration Rate >60 (60-); Glucose, Blood 191 mg/dL (70-99); Potassium, Blood 4.1 mmol/L (3.5-5.5); Sodium, Blood 137 mmol/L (136-145); Troponin I <0.015 ng/mL (0.000-0.040)
[2019-03-08] MEDS ORDERED: Metformin HCl500 MG PO (14:41)
[2019-03-08] MEDS ORDERED: CLON.2 PO (14:56)
[2019-03-08] MEDS ORDERED: MELA3 PO (14:56)
--- NOTE | 2019-03-08 17:33 | NUR ---
ADMIT NOTE RECEIVED REPORT FROM MAGGY MEHTA RN IN ED. PT TO ROOM VIA VERNON, 1 PERSON ASSIST TO BED. PT AND FAMILY ORIENTED TO ROOM AND CALL LIGHT SYSTEM. PT/SPOUSE EDUCATED ON FALL RISK AND USE OF CALL LIGHT PRIOR TO GETTING OUT OF BED, BED ALARM IN PLACE. PT SPOUSE AND SON STATE THE PT HAS BEEN FALING AT HOME AND ON FRIDAY THE PT FELL AND BROKE RIBS ON THE LEFT SIDE, WAS SEEN AT THE ER AND SENT HOME WITH PAIN MEDICATIONS. PT WAS SENT OVER FROM PCP WITH CONCERNS OF PNEUMONIA. PT A&Ox1, HAS HISTORY OF MULTIPLE CVA CAUSING MEMORY LOSS AND DIFFICULTY SPEAKING. PT CALM AND COOPERTAIVE WITH CARE. PT REPORTS PAIN, UNABLE TO RATE, FACE SCALE USED 7/10, WILL MEDICATE PER EMAR. PT DENIES NAUSEA, REQUESTING FOOD ON ADDMISSION, SNACK PROVIDED. PT RECEIVING IV ANTIBIOTICS, RECEIVED AZITHROMYCIN AND ROCEPHIN IN ED. PT BREATHING EVEN, SHALLOW, ON 2L O2, FAMILY REPORTS MOIRT, HARSH COUGHT, LS COARSE T/O. BREATHING TREATMENTS ORDERED. ELEVATED BP NOTED, OTHER VSS. NO OTHER ACUTE CHANGES NOTED DURING SHIFT. WILL CONTINUE TO MONITOR UNTIL REPORT GIVEN TO ONCOMING RN. CRITICAL LAB FOR LACTIC ACID, NOTIFIED DR HARRIS, NO NEW ORDER. WILL CONTINUE TO MONITOR
--- NOTE | 2019-03-08 19:48 | NUR ---
received report of critical lab from Nargis Valerio. Lactic Acid 3.2
[2019-03-09 03:07] LABS: BASOPHILS ABSOLUTE AUTO 0.01 K/mm3 (0.00-0.23); BASOPHILS PERCENT AUTO 0 % (0-2); EOSINOPHILS ABSOLUTE AUTO 0.01 K/mm3 (0.00-0.68); EOSINOPHILS PERCENT AUTO 0 % (0-6); Hematocrit 38.1 % (37.0-53.0); Hemoglobin 12.7 g/dL (13.5-17.5); IMMATURE GRAN ABSOLUTE AUTO 0.07 K/mm3 (0.00-0.10); IMMATURE GRAN PERCENT AUTO 1 % (0-1); LYMPHOCYTES ABSOLUTE AUTO 0.84 K/mm3 (0.84-5.20); LYMPHOCYTES PERCENT AUTO 7 % (21-46); MONOCYTES ABSOLUTE AUTO 0.22 K/mm3 (0.16-1.47); MONOCYTES PERCENT AUTO 2 % (4-13); Mean Corpuscular HGB 29.5 pg (26.0-34.0); Mean Corpuscular HGB Conc 33.3 g/dL (31.5-36.5); Mean Corpuscular Volume 89 fL (80-100); Mean Platelet Volume 10.9 fL (9.1-12.4); NEUTROPHILS ABSOLUTE AUTO 10.84 K/mm3 (1.96-9.15); NEUTROPHILS PERCENT AUTO 90 % (41-73); Platelet Count 250 K/mm3 (150-400); RDW Coefficient Variation 15.3 % (11.7-14.2); White Blood Cell Count 11.99 K/mm3 (4.00-11.30)
[2019-03-09 03:23] LABS: Anion Gap 8 mmol/L (6-16); Blood Urea Nitrogen 9 mg/dL (8-24); Bun/Creatinine Ratio 18.6 (12.0-20.0); CO2, Blood 25 mmol/L (21-32); Chloride, Blood 101 mmol/L (98-108); Creatinine, Blood 0.49 mg/dL (0.60-1.20); Glomerular Filtration Rate >60 (60-); Glucose, Blood 273 mg/dL (70-99); Magnesium, Blood 1.6 mg/dL (1.6-2.4); Potassium, Blood 3.6 mmol/L (3.5-5.5); Sodium, Blood 134 mmol/L (136-145)
[2019-03-09] MEDS ORDERED: Benicar40 MG PO (04:32)
[2019-03-09] MEDS ORDERED: FURO40 PO (04:34)
[2019-03-09] MEDS ORDERED: CLON.2 PO (04:37)
[2019-03-09] MEDS ORDERED: PARO20 PO (04:39)
[2019-03-09] MEDS ORDERED: PANT40 PO (04:40)
[2019-03-09] MEDS ORDERED: MAGN84 PO (04:44)
[2019-03-09] MEDS ORDERED: ACET325 PO (04:45)
[2019-03-09] MEDS ORDERED: VITAMIN B-1100 MG PO (04:47)
[2019-03-09] MEDS ORDERED: FOLI1 PO (04:49)
[2019-03-09] MEDS ORDERED: BIOTIN5000 MC1 SL (04:49)
[2019-03-09] MEDS ORDERED: Anti-Diarrheal2 MG PO (04:51)
[2019-03-09] MEDS ORDERED: Mupirocin22 GM TOP (04:53)
[2019-03-09] MEDS ORDERED: NYSTRIT TOP (04:54)
[2019-03-09] MEDS ORDERED: CORTISONE60 GM TOP (04:55)
[2019-03-09] MEDS ORDERED: FLUC150A PO (04:56)
[2019-03-09] MEDS ORDERED: QUET100 PO (11:43)
--- NOTE | 2019-03-09 18:14 | NUR ---
SHIFT SUMMARY PT A&O TO SELF AND FAMILY. PT UP IN WHEELCHAIR T/O SHIFT. PT 1 PERSON ASSIST WHEN UP. PT ON 2L O2 NC, >92%, TITRATING TO RA. LS COARSE, BREATHING TREATMENT PER RT. PT REPORTS PAIN IN LEFT RIBS, MEDICATED X1 FOR PAIN WITH POSITIVE RESULTS, PT UNABLE TO VERBAL PAIN SCALE, USING FACE SCALE. PT DENIES SOB AND N/V T/O SHIFT. PT RECEIVING IV ANTIBIOTICS AND IV STEROIDS. ELEVATED BP NOTED, NOTIFED DR FARLEY, NEW ORDERS ENTERED, MEDICATED PER EMAR. OTHER VSS. NO OTHER ACUTE CHANGES NOTED DURING SHIFT. WILL CONTINUE TO MONITOR UNTIL REPORT GIVEN TO ONCOMING RN. PT AT BEDSIDE, EDUCATED ON DIET AND LOW/NO SUGAR BEVERAGES AND SNACKS. BOTH PT AND SPOUSE EDUCATED ON SMOKING CESSATION.
--- NOTE | 2019-03-09 18:32 | NUR ---
Initial Visit: Patient has a history of stroke X3, alcoholic related encephalopathy and dementia, diabetes, neuropathy, a fib, COPD, hypertension, arthritis, pacemaker placement, hernia. Pt has been to ER X 12 in the last 1 year and 3 admissions to the hospital since February of last year. He suffered a stroke in Nov last year and has visits related to that in addition to the visits listed. is at bedside and provides history of current admission. She is quite upset at many things; she is very upset that doctor has told her that she cannot take pt out to smoke. She states, "I understand where she (Dr. lEler) is coming from, but THATS THE ONLY THING HE ENJOYS! So why not let him smoke?" Allowed time for Cassie to express her fears, concerns, earlier experiences with healthcare. She is expressing a lot of guilt also: She feels bad that he fell, she feels bad that he is unable to smoke. She feels guilty when she leaves him here with staff when she has to let out her dogs daily. Pt is not taking part in the conversation. He is looking around the room and only pays attention when she speaks to him. This mortgage or loan underwriter has continued to ask him questions, but he looks to her to answer. He reports that his IV is hurting. IV pump stopped and line disconnected. Reported to nursing and IV will be removed. There is no redness/swelling to R AC area. Pt is incontinent of urine at times at home. He uses pull ups. She is his primary caregiver. She is showing signs of extreme caregiver strain and significant anxiety. She is straight forward style of communication and appears to have a lower education level. She seems to lack insight into his disease process, as she is telling me that smoking did not cause his strokes. He ambulates independently at home. He has a walker but doesn't use it. She tries to help him, however, he gets up without telling her. He is left alone for short periods of time, "15 min tops," is what she is telling me. As this is the first time palliative care has been met Cassie, mortgage or loan underwriter kept visit in an introductory tone. Card provided to her, will follow up with her and pt tomorrow. Capacitor Tester has seen pt today and she is anxious to see what happened with the consult and what is recommended. Pt appears to be appropriate for hospice, given his very serious medical conditions. The increased ER visits is an indication that he is failing at home. Cassie expresses that she has tried to get an income by taking care of him. She has also suffered many personal losses this last year, in addition to his failing health. If he does not go home with hospice, he is very high risk for readmission. account services analyst consult placed to talk to her about having a caregiver income to take care of him. Spiritual consult placed to education counselor her on nicotine addiction - for him and for her - and to address emotional distress. Both pt and had tears today during the visit. Palliative care to follow up and remain involved with care. Reviewed PC notes and found on last admission that hospice was discussed among hospitalist, nurse, and PC. Pt discharged without that recommendation, and there is no indication that this was discussed with the . It seems that this was going to be the conversation if pt declined. He now seems appropriate for that conversation.
--- NOTE | 2019-03-09 20:36 | NUR ---
patient sitting in his wheel chair at shift change. is out of room, and patient is anxious. patient had a large incontinet void and his linens were changed and we moved him into bed. patient has rib pain with movement and looks like a 6/10 on the faces scale. pain med will be given per emar. 300 ml out documented per and 1 incontinent void. per telemtery patient is NSR with BBB and PACs and occasionally paced at 94 BPM. will continue to monitor
[2019-03-10 05:00] LABS: BASOPHILS ABSOLUTE AUTO 0.01 K/mm3 (0.00-0.23); BASOPHILS PERCENT AUTO 0 % (0-2); EOSINOPHILS ABSOLUTE AUTO 0.01 K/mm3 (0.00-0.68); EOSINOPHILS PERCENT AUTO 0 % (0-6); Hematocrit 34.4 % (37.0-53.0); Hemoglobin 11.4 g/dL (13.5-17.5); IMMATURE GRAN ABSOLUTE AUTO 0.05 K/mm3 (0.00-0.10); IMMATURE GRAN PERCENT AUTO 0 % (0-1); LYMPHOCYTES ABSOLUTE AUTO 0.83 K/mm3 (0.84-5.20); LYMPHOCYTES PERCENT AUTO 6 % (21-46); MONOCYTES ABSOLUTE AUTO 0.58 K/mm3 (0.16-1.47); MONOCYTES PERCENT AUTO 4 % (4-13); Mean Corpuscular HGB 29.5 pg (26.0-34.0); Mean Corpuscular HGB Conc 33.1 g/dL (31.5-36.5); Mean Corpuscular Volume 89 fL (80-100); NEUTROPHILS PERCENT AUTO 89 % (41-73); Platelet Count 255 K/mm3 (150-400); RDW Coefficient Variation 15.7 % (11.7-14.2); Red Blood Cell Count 3.87 M/mm3 (4.30-5.90); White Blood Cell Count 13.08 K/mm3 (4.00-11.30)
[2019-03-10 05:28] LABS: Albumin, Blood 2.9 g/dL (3.4-5.0); Anion Gap 7 mmol/L (6-16); Blood Urea Nitrogen 17 mg/dL (8-24); Bun/Creatinine Ratio 32.8 (12.0-20.0); CO2, Blood 26 mmol/L (21-32); Calcium, Blood 8.9 mg/dL (8.5-10.1); Chloride, Blood 104 mmol/L (98-108); Creatinine, Blood 0.52 mg/dL (0.60-1.20); Glomerular Filtration Rate >60 (60-); Glucose, Blood 315 mg/dL (70-99); Phosphorus, Blood 2.7 mg/dL (2.5-4.9); Potassium, Blood 4.1 mmol/L (3.5-5.5); Sodium, Blood 137 mmol/L (136-145)
--- NOTE | 2019-03-10 12:15 | NUR ---
ELEPHANT KEEPER REPORTED A CBG OF 438. MD NOTIFIED AND RECEIVED A VERBAL ORDER TO CHANGE FROM LOW SLIDING SCALE TO MEDIUM.
--- NOTE | 2019-03-10 14:58 | NUR ---
Clinical Visit: Pt is alone in the room at this time. He is having pain, but he is not able to tell me on a scale of 0-10 how severe it is. He points to his rib fractures and states, "I think I fell or something." Oriented pt to hospital stay and reasons he is here. He nods and smiles at information and cannot repeat instructions back. is not bedside at this time. Conferenced with chaplain Matilde. and pt could use some gentle counseling. Both are very emotional. Reported pain to nursing. Will remain available.
--- NOTE | 2019-03-10 17:11 | NUR ---
SHIFT SUMMARY: PATIENT IS ALERT TO SELF AND AT BASELINE WITH C/O PAIN X 1 DURING THIS SHIFT AND PAIN PILL GIVEN ORDERED AND PATIENTS STATES IT EFFECTIVE. CBGS COVERED WITH ORDERED SLIDING SCALE. REMAINS AT BEDSIDE MOST OF THIS SHIFT AND IS VERY INVOLVED IN HIS CARE. IV ABO RAN VIA PERIPHERAL LINE WITH NO ISSUES. LUNG SOUNDS REMAIN COARSE WITH NO OBSERVATION OF SOB OR RESP DISTRESS. RT CONTINUES WITH BREATHING TX.
--- NOTE | 2019-03-10 18:01 | NUR ---
DR GAMEZ NOTIFIED OF CBG OF 439 DOCTOR STATED TO RE-CHECK CBG IN 2 HOURS.
--- NOTE | 2019-03-10 18:17 | NUR ---
Per admit trigger, I met with Matthew early in the shift. He was alone in room and pleasantly confused. I am uncertain, what if anything, he understood. He smiles easily and made the sign of the cross at conclusion of prayer. He said 'yes' to everything I asked. He appeared comfortable and well cared-for by nursing. Later, I met with his , Cassie. She admits to feeling overwhelmed and is angry that "we" are not allowing Matthew out to smoke. "He can only take a couple puffs. Then his chest huts and he has to stop." They have been 2 years. Cassie beleikamran Castro is showing signs of improvememnt, and she is hoping to take him home and continuing to care for him there. "We have a nice routine that suits us." Clearly, Cassie is not ready to have conversation regarding Matthew' poor prognosis. She is very talkative. She believes she has to be present "all the time" otherwise "he flips out." Cassie feels supported by friends and neighbors. She wants to become his paid care-concert singer. As Matthew continues to decline, I suspect he will have multiple admissions. Perhaps, Cassie will come to realize hospice would be a great help and allow Matthew to remain in his comfortable routine until end-of-life. This admission does not appear to be the time to push that possibility. Cassie is afraid of losing Matthew and believes he will recover from his multiple strokes. There does not appear to be a way to disuade her otherwise right now. She will benefit from continued emotional support, affirmation of love, and assurance of care/support. We had a good rapport and I will remain available.
--- NOTE | 2019-03-11 04:54 | NUR ---
NOC SHIFT SUMMARY PT IS PLEASANT AND COOPERATIVE WITH CARE THIS NIGHT. ORIENTED TO SELF AND . HELPFUL AND FOLLOWS DIRECTIONS. HE DID COMPLAINS OF PAIN WHICH WAS TREATED PER EMAR TO GOOD EFFECT. CURRENTLY SLEEPING HAS SLEPT MUCH OF NIGHT. VSS. IT IS PAINFUL FOR HIM TO MOVE DUE TO BROKEN RIBS. CURRENLTLY APPEARS IN NO ACUTE DISTRESS. IN ROOM. WILL CONTINUE TO MONITOR.
[2019-03-11 05:11] LABS: BASOPHILS ABSOLUTE AUTO 0.01 K/mm3 (0.00-0.23); BASOPHILS PERCENT AUTO 0 % (0-2); EOSINOPHILS ABSOLUTE AUTO 0.01 K/mm3 (0.00-0.68); EOSINOPHILS PERCENT AUTO 0 % (0-6); Hemoglobin 11.1 g/dL (13.5-17.5); IMMATURE GRAN ABSOLUTE AUTO 0.08 K/mm3 (0.00-0.10); IMMATURE GRAN PERCENT AUTO 1 % (0-1); LYMPHOCYTES PERCENT AUTO 6 % (21-46); MONOCYTES ABSOLUTE AUTO 0.48 K/mm3 (0.16-1.47); MONOCYTES PERCENT AUTO 4 % (4-13); Mean Corpuscular HGB 29.4 pg (26.0-34.0); Mean Corpuscular HGB Conc 32.6 g/dL (31.5-36.5); Mean Corpuscular Volume 90 fL (80-100); NEUTROPHILS ABSOLUTE AUTO 11.44 K/mm3 (1.96-9.15); NEUTROPHILS PERCENT AUTO 89 % (41-73); Platelet Count 269 K/mm3 (150-400); RDW Coefficient Variation 15.9 % (11.7-14.2); RDW Standard Deviation 52.7 fL (35.1-46.3); Red Blood Cell Count 3.77 M/mm3 (4.30-5.90); White Blood Cell Count 12.82 K/mm3 (4.00-11.30)
[2019-03-11 05:38] LABS: Albumin, Blood 2.9 g/dL (3.4-5.0); Anion Gap 8 mmol/L (6-16); Blood Urea Nitrogen 26 mg/dL (8-24); Bun/Creatinine Ratio 47.7 (12.0-20.0); CO2, Blood 24 mmol/L (21-32); Calcium, Blood 9.1 mg/dL (8.5-10.1); Chloride, Blood 102 mmol/L (98-108); Creatinine, Blood 0.55 mg/dL (0.60-1.20); Glomerular Filtration Rate >60 (60-); Glucose, Blood 242 mg/dL (70-99); Phosphorus, Blood 2.3 mg/dL (2.5-4.9); Potassium, Blood 4.4 mmol/L (3.5-5.5); Sodium, Blood 134 mmol/L (136-145)
--- NOTE | 2019-03-11 11:58 | NUR ---
REPORTED PT'S CBG OF [address] GAMEZ. 18 UNITS NOVOLOG GIVEN. NEW ORDERS RECEIVED TO RECHECK CBG IN 2 HOURS.
--- NOTE | 2019-03-11 18:44 | NUR ---
SHIFT SUMMARY EATING AND DRINKING WELL; SPOUSE IN ROOM THROUGHOUT DAY. CBG'S IN 400'S TODAY. MUMBLE AT TIMES. HX CVA. ABLE TO AMBULATE WITH PT A GOOD DISTANCE (SEE NOTE). C/O LEFT SIDED RIB PAIN EMAR MEDS EFFECTIVE. 1 PERSON ASSIST. UP IN CHAIR FOR MOST OF DAY. FAMILY WHEELS PATIENT DOWN TO SMOKE.
--- NOTE | 2019-03-12 03:17 | NUR ---
SHIFT SUMMARY PATIENT HAD NO ACUTE CHANGES OBSERVED THIS SHIFT. AXO X 2 TO SELF AND SPOUSE. ONE ASSIST TO BSC W/FWW/GAIT BELT. TAKES MEDICATION WHOLE WITH WATER. CBG 342. AUTO EMISSIONS TECHNICIAN REPORTS PACED 63. LIDODERM PATCH REMOVED FROM FX RIBS. LS COARSE T/O. SPOUSE PRESENT T/O SHIFT AND INVOLVED WITH CARE. VSS/AFEBRILE. DENIES SOB AND N/V. SLOW TO RESPOND. DENIES SOB AND N/V. CALL LIGHT IN REACH. BED IN LOWEST POSITION. WILL CONTINUE TO MONITOR UNTIL DAY SHIFT NURSE ASSUMES CARE.
[2019-03-12 04:48] LABS: BASOPHILS PERCENT AUTO 0 % (0-2); EOSINOPHILS PERCENT AUTO 0 % (0-6); Hematocrit 34.5 % (37.0-53.0); Hemoglobin 11.2 g/dL (13.5-17.5); IMMATURE GRAN ABSOLUTE AUTO 0.06 K/mm3 (0.00-0.10); IMMATURE GRAN PERCENT AUTO 1 % (0-1); LYMPHOCYTES ABSOLUTE AUTO 0.85 K/mm3 (0.84-5.20); LYMPHOCYTES PERCENT AUTO 9 % (21-46); MONOCYTES ABSOLUTE AUTO 0.42 K/mm3 (0.16-1.47); MONOCYTES PERCENT AUTO 5 % (4-13); Mean Corpuscular HGB 29.4 pg (26.0-34.0); Mean Corpuscular HGB Conc 32.5 g/dL (31.5-36.5); Mean Corpuscular Volume 91 fL (80-100); Mean Platelet Volume 10.8 fL (9.1-12.4); NEUTROPHILS ABSOLUTE AUTO 7.78 K/mm3 (1.96-9.15); NEUTROPHILS PERCENT AUTO 85 % (41-73); Platelet Count 258 K/mm3 (150-400); RDW Coefficient Variation 15.8 % (11.7-14.2); RDW Standard Deviation 52.4 fL (35.1-46.3); Red Blood Cell Count 3.81 M/mm3 (4.30-5.90); White Blood Cell Count 9.11 K/mm3 (4.00-11.30)
[2019-03-12 05:06] LABS: Albumin, Blood 2.8 g/dL (3.4-5.0); Anion Gap 8 mmol/L (6-16); Blood Urea Nitrogen 20 mg/dL (8-24); Bun/Creatinine Ratio 36.1 (12.0-20.0); CO2, Blood 26 mmol/L (21-32); Calcium, Blood 8.6 mg/dL (8.5-10.1); Chloride, Blood 101 mmol/L (98-108); Creatinine, Blood 0.55 mg/dL (0.60-1.20); Glomerular Filtration Rate >60 (60-); Glucose, Blood 294 mg/dL (70-99); Phosphorus, Blood 2.3 mg/dL (2.5-4.9); Potassium, Blood 4.5 mmol/L (3.5-5.5); Sodium, Blood 135 mmol/L (136-145)
[2019-03-12] MEDS ORDERED: INSULANPEN SC (13:47)
[2019-03-12] MEDS ORDERED: ALBU2.5V5 NEB (13:47)
[2019-03-12] MEDS ORDERED: LIDO700A20 TOP (13:48)
[2019-03-12] MEDS ORDERED: Vsl#3 Capsule1 EACH PO (13:48)
[2019-03-12] MEDS ORDERED: DULERA 200 MCG/13 GM INH (13:48)
[2019-03-12] MEDS ORDERED: NICO21TP TOP (13:49)
--- NOTE | 2019-03-12 14:28 | NUR ---
DISCHARGE SUMMARY PATIENT PLEASANT, NO ACUTE CONCERNS AT THIS TIME. EDUCATION GIVEN TO THE PATIENT AND FAMILY. MEDICATIONS SENT TO PHARMACY OF CHOICE. IV REMOVED.
== END 2019-03-12 14:00 | disposition home health service (06) | DRG 871 ==
LOC: ER 10:06 → ERHOLD 14:42 → MEDS 14:42
PROVIDERS: Emergency Medicine; Family Medicine; ADMIT Internal Medicine
DX: A41.9 Sepsis, unspecified organism (principal); J96.01 Acute respiratory failure with hypoxia; J18.1 Lobar pneumonia, unspecified organism; S22.42XA Multiple fractures of ribs, left side, initial encounter for closed fracture; E87.2 Acidosis; J44.0 Chronic obstructive pulmonary disease with (acute) lower respiratory infection; E87.1 Hypo-osmolality and hyponatremia; I47.2 Ventricular tachycardia; J44.1 Chronic obstructive pulmonary disease with (acute) exacerbation; Z51.5 Encounter for palliative care; R65.20 Severe sepsis without septic shock; F17.210 Nicotine dependence, cigarettes, uncomplicated; I10 Essential (primary) hypertension; F01.50 Vascular dementia, unspecified severity, without behavioral disturbance, psychotic disturbance, mood disturbance, and anxiety; F32.9 Major depressive disorder, single episode, unspecified; K21.9 Gastro-esophageal reflux disease without esophagitis; E09.9 Drug or chemical induced diabetes mellitus without complications; T38.0X5A Adverse effect of glucocorticoids and synthetic analogues, initial encounter; I48.2 Chronic atrial fibrillation; Z95.0 Presence of cardiac pacemaker; W19.XXXA Unspecified fall, initial encounter; I69.398 Other sequelae of cerebral infarction; E78.5 Hyperlipidemia, unspecified; E03.9 Hypothyroidism, unspecified; Z66 Do not resuscitate
CPT/HCPCS: 36415; 71046; 80048; 80053; 80069; 82947; 83605; 83735; 84145; 84484; 85025; 87040; 92523; 93005; 93010; 94640; 94667; 94760; 96365; 96375; 97110; 97162; 97530; 99285-25; J0360; J0456; J0696; J2920; J2930; J7050; J7120

== ENCOUNTER 2019-04-30 23:11 | Observation (INO) | payer MEDICARE, OTHER ==
[~2019-04-30] VITALS: Ht 165.1 cm; Wt 57.1 kg
[~2019-04-30 23:11] MED LIST changes: +ACET325 PO; +ALBU2.5V5 NEB; +Anti-Diarrheal2 MG PO; +BIOTIN5000 MC1 SL; +Benicar40 MG PO; +CORTISONE60 GM TOP; +DULERA 200 MCG/13 GM INH; +FLUC150A PO; +INSULANPEN SC; +LIDO700A20 TOP; +MELA3 PO; +Metformin HCl500 MG PO; +Mupirocin22 GM TOP; +NICO21TP TOP; +NYSTRIT TOP; +PARO20 PO; +QUET100 PO; +VITAMIN B-1100 MG PO; +Vsl#3 Capsule1 EACH PO
[2019-05-01 01:21] LABS: BASOPHILS ABSOLUTE AUTO 0.07 K/mm3 (0.00-0.23); BASOPHILS PERCENT AUTO 1 % (0-2); EOSINOPHILS ABSOLUTE AUTO 0.45 K/mm3 (0.00-0.68); EOSINOPHILS PERCENT AUTO 5 % (0-6); Hematocrit 37.5 % (37.0-53.0); Hemoglobin 12.1 g/dL (13.5-17.5); IMMATURE GRAN ABSOLUTE AUTO 0.03 K/mm3 (0.00-0.10); IMMATURE GRAN PERCENT AUTO 0 % (0-1); LYMPHOCYTES ABSOLUTE AUTO 2.92 K/mm3 (0.84-5.20); LYMPHOCYTES PERCENT AUTO 30 % (21-46); MONOCYTES ABSOLUTE AUTO 0.89 K/mm3 (0.16-1.47); MONOCYTES PERCENT AUTO 9 % (4-13); Mean Corpuscular HGB 29.5 pg (26.0-34.0); Mean Corpuscular HGB Conc 32.3 g/dL (31.5-36.5); Mean Corpuscular Volume 92 fL (80-100); Mean Platelet Volume 10.8 fL (9.1-12.4); NEUTROPHILS ABSOLUTE AUTO 5.27 K/mm3 (1.96-9.15); NEUTROPHILS PERCENT AUTO 55 % (41-73); Platelet Count 254 K/mm3 (150-400); RDW Coefficient Variation 15.1 % (11.7-14.2); RDW Standard Deviation 51.2 fL (35.1-46.3); White Blood Cell Count 9.63 K/mm3 (4.00-11.30)
[2019-05-01 01:36] LABS: Prothrombin Time Results 10.6 Sec (9.7-11.5)
[2019-05-01 01:51] LABS: Alanine Aminotransfer (ALT/SGP 10 U/L (12-78); Albumin, Blood 3.1 g/dL (3.4-5.0); Albumin/Globulin Ratio 0.9 (0.8-1.8); Alk Phos 133 U/L (50-136); Anion Gap 6 mmol/L (6-16); Aspartate Aminotrans (AST/SGOT 10 U/L (12-37); Bilirubin, Total 0.4 mg/dL (0.1-1.0); Blood Urea Nitrogen 14 mg/dL (8-24); Bun/Creatinine Ratio 19.7 (12.0-20.0); CO2, Blood 25 mmol/L (21-32); Calcium, Blood 8.5 mg/dL (8.5-10.1); Chloride, Blood 108 mmol/L (98-108); Creatinine, Blood 0.71 mg/dL (0.60-1.20); Globulin, Blood 3.5 g/dL (2.2-4.0); Glomerular Filtration Rate >60 (60-); Glucose, Blood 138 mg/dL (70-99); Potassium, Blood 3.7 mmol/L (3.5-5.5); Sodium, Blood 139 mmol/L (136-145); Total Protein, Blood 6.6 g/dL (6.4-8.2)
[2019-05-01] MEDS ORDERED: NOVOLOG FL100 UNIT/1 SC (03:23)
[2019-05-01] MEDS ORDERED: Metformin HCl500 MG PO (03:27)
[2019-05-01] MEDS ORDERED: MAG6464 MG PO (03:31)
[2019-05-01] MEDS ORDERED: MELATONIN5 M1 PO (03:33)
[2019-05-01] MEDS ORDERED: Metoprolol Tart25 MG PO (03:34)
[2019-05-01] MEDS ORDERED: Advair Hfa 230-12 GM INH (03:35)
[2019-05-01 05:35] LABS: Hematocrit 37.5 % (37.0-53.0); Hemoglobin 12.3 g/dL (13.5-17.5); Mean Corpuscular HGB 29.8 pg (26.0-34.0); Mean Corpuscular HGB Conc 32.8 g/dL (31.5-36.5); Mean Corpuscular Volume 91 fL (80-100); Platelet Count 271 K/mm3 (150-400); RDW Coefficient Variation 14.9 % (11.7-14.2); Red Blood Cell Count 4.13 M/mm3 (4.30-5.90); White Blood Cell Count 9.26 K/mm3 (4.00-11.30)
[2019-05-01 06:38] LABS: Alanine Aminotransfer (ALT/SGP 13 U/L (12-78); Albumin, Blood 3.1 g/dL (3.4-5.0); Albumin/Globulin Ratio 0.9 (0.8-1.8); Alk Phos 138 U/L (50-136); Anion Gap 5 mmol/L (6-16); Aspartate Aminotrans (AST/SGOT 11 U/L (12-37); Bilirubin, Total 0.6 mg/dL (0.1-1.0); Blood Urea Nitrogen 12 mg/dL (8-24); Bun/Creatinine Ratio 20.1 (12.0-20.0); CO2, Blood 25 mmol/L (21-32); Calcium, Blood 8.6 mg/dL (8.5-10.1); Chloride, Blood 109 mmol/L (98-108); Globulin, Blood 3.4 g/dL (2.2-4.0); Glomerular Filtration Rate >60 (60-); Glucose, Blood 101 mg/dL (70-99); Potassium, Blood 3.5 mmol/L (3.5-5.5); Sodium, Blood 139 mmol/L (136-145); Total Protein, Blood 6.5 g/dL (6.4-8.2)
--- NOTE | 2019-05-01 07:39 | NUR ---
AM NOTE/PT ARRIVAL. PT ARRIVED ON UNIT VIA GURNEY. PT WAS ADMITTED FOR LEFT PLURAL EFFUSION AND IS SCHEDULED FOR A TAP WITH ULTRA SOUND LATER TODAY. PT HAS DEMENTIA BUT IS CURRENTLY ABLE TO FOLLOW DIRECTIONS, IS AT THE BEDSIDE. PT'S VS STABLE, PT IS IN NSR IN THE 60'S PER CHEMICAL LABORATORY SCIENTIST. PT'S L/S COARSE T/O AND DIM ON THE LEFT SIDE PT IS ON RA WITH O2 SATS >90%. NO EDEMA IS NOTED ON ASSESSMENT. PT IS ABLE TO TRANSFER WITH 1 P ASSIST, PT HAS BEEN USING THE URNIAL INDEPENDENTLY WITH SOME INCONT. CALL LIGHT IN REACH, BED IS LOCKED WITH BED ALARM ON WILL CONTINUE TO MONITOR.
[2019-05-01] MEDS ORDERED: QUET25 PO (07:59)
[2019-05-01] MEDS ORDERED: CYAN500 PO (08:03)
[2019-05-01] MEDS ORDERED: ASCO500 PO (08:04)
[2019-05-01] MEDS ORDERED: CHOL10002 PO (08:04)
--- NOTE | 2019-05-01 12:30 | NUR ---
PT RETURN FROM ULTRA SOUND. PT HAD ULTRASOUND GUIDED TAP OF THE LEFT LUNG, PER US TECH 1.5 L WAS TAKEN FROM THE PT'S LEFT LUNG. PT'S L/S STILL COARSE BUT NOT AT DIM. PT'S VS STABLE. CALL LIGHT IN REACH, WILL CONTINUE TO MONITOR.
[2019-05-01 12:55] LABS: Automated BF RBC Count 0.005 M/mm3 (0-0); Automated BF WBC Count 0.511 K/mm3 (0-999); Body Fluid WBC Count 511 /mm3 (0-999); RBC Count, Body Fluid 5000 /mm3 (0-0)
[2019-05-01 13:13] LABS: Lactate Dehydrogenase, Body Fl 151 U/L
[2019-05-01 13:39] LABS: Appearance, Body Fluid Hazy (Clear); Color, Body Fluid Yellow (None-Yellow); Total Cell Count, Body Fluid 100
[2019-05-01] MEDS ORDERED: FINA5 PO (17:00)
[2019-05-01] MEDS ORDERED: QUET100 PO (17:03)
[2019-05-01] MEDS ORDERED: VIRT-PHOS 250250 MG PO (17:06)
--- NOTE | 2019-05-01 19:16 | NUR ---
SHIFT SUMMARY: PATIENT XFR FROM PCU-10 THIS SHIFT. PT HX DEMENTIA, CVA X2, PACEMAKER, DM2. THORACENTESIS 05/01 c 1500ML REMOVED; CULTURES PENDING. SWALLOW PRECAUTIONS; THIN LIQUIDS, NO STRAWS, UPRIGHT FOR ORAL INTAKE. TELE IN PALCE; OCCASIONALLY PACED @ 62 c UNDERLYING A-FIB. FAMILY @ BEDSIDE T/O SHIFT. HOME MEDS RECONCILED c SPOUSE. REPORT GIVEN TO ONCOMING RN.
--- NOTE | 2019-05-01 21:32 | NUR ---
DR PIERCE notified verbal report but no hold to hold aspirin post thoracentesis today and AM. Order obtained for hold.
--- NOTE | 2019-05-02 04:55 | NUR ---
Pt was PCU transfer yesterday after having recovered from thoracentesis for lt pleural effusion. 1.5 l pleural fluid removed. continued on room air all shift without complaints. Baseline dementia and is calm but confused. He was incontinent of large amt of urine. He drank and ate with supervision for aspiration precutions. Pt has pacemaker paced rate 60 but had several bursts where he was paced at 130 for short periods. at bedside supportive, [place].
[2019-05-02 06:09] LABS: BASOPHILS ABSOLUTE AUTO 0.06 K/mm3 (0.00-0.23); BASOPHILS PERCENT AUTO 1 % (0-2); EOSINOPHILS ABSOLUTE AUTO 0.46 K/mm3 (0.00-0.68); EOSINOPHILS PERCENT AUTO 5 % (0-6); Hemoglobin 12.2 g/dL (13.5-17.5); IMMATURE GRAN ABSOLUTE AUTO 0.03 K/mm3 (0.00-0.10); IMMATURE GRAN PERCENT AUTO 0 % (0-1); LYMPHOCYTES ABSOLUTE AUTO 2.89 K/mm3 (0.84-5.20); LYMPHOCYTES PERCENT AUTO 32 % (21-46); MONOCYTES ABSOLUTE AUTO 0.83 K/mm3 (0.16-1.47); MONOCYTES PERCENT AUTO 9 % (4-13); Mean Corpuscular HGB 29.2 pg (26.0-34.0); Mean Corpuscular HGB Conc 32.1 g/dL (31.5-36.5); Mean Corpuscular Volume 91 fL (80-100); Mean Platelet Volume 11.2 fL (9.1-12.4); NEUTROPHILS PERCENT AUTO 52 % (41-73); Platelet Count 288 K/mm3 (150-400); RDW Coefficient Variation 14.9 % (11.7-14.2); RDW Standard Deviation 49.8 fL (35.1-46.3); Red Blood Cell Count 4.18 M/mm3 (4.30-5.90); White Blood Cell Count 8.97 K/mm3 (4.00-11.30)
[2019-05-02 06:58] LABS: Alanine Aminotransfer (ALT/SGP 11 U/L (12-78); Albumin, Blood 2.9 g/dL (3.4-5.0); Albumin/Globulin Ratio 0.9 (0.8-1.8); Alk Phos 134 U/L (50-136); Anion Gap 7 mmol/L (6-16); Aspartate Aminotrans (AST/SGOT 11 U/L (12-37); Bilirubin, Total 0.4 mg/dL (0.1-1.0); Blood Urea Nitrogen 19 mg/dL (8-24); Bun/Creatinine Ratio 30.2 (12.0-20.0); CO2, Blood 26 mmol/L (21-32); Calcium, Blood 8.8 mg/dL (8.5-10.1); Chloride, Blood 107 mmol/L (98-108); Creatinine, Blood 0.63 mg/dL (0.60-1.20); Globulin, Blood 3.4 g/dL (2.2-4.0); Glomerular Filtration Rate >60 (60-); Glucose, Blood 138 mg/dL (70-99); Magnesium, Blood 1.9 mg/dL (1.6-2.4); Sodium, Blood 140 mmol/L (136-145); Total Protein, Blood 6.3 g/dL (6.4-8.2)
[2019-05-02] MEDS ORDERED: AMOCLA875 PO (11:15)
[2019-05-02] MEDS ORDERED: ASPI81CH PO (11:15)
[2019-05-02] MEDS ORDERED: B-1100 MG PO (11:16)
--- NOTE | 2019-05-02 13:48 | NUR ---
PATIENT DISCHARGE: PATIENT DISCHARGED TO HOME THIS SHIFT. MEDICATION RECONCILIATION COMPLETED. DISCHARGE EDUCATION COMPLETED WITH PT AND SPOUSE. PT DEPARTED MEDICAL FLOOR VIA [facility] WITH WHEELCHAIR AT 1300. PATIENT DEPARTED [facility] VIA PRIVATE AUTO.
== END 2019-05-02 12:56 | disposition home or self-care (01) ==
LOC: ER 23:11 → ERHOLD 23:12 → MEDS 05-01 07:28 → PCU 05-01 07:32 → MEDS 05-01 13:39 → ENPENDDIS 05-02 09:30 → MEDS 05-02 12:56
PROVIDERS: Emergency Medicine; Internal Medicine; ADMIT Internal Medicine
DX: J90 Pleural effusion, not elsewhere classified (principal); S22.42XD Multiple fractures of ribs, left side, subsequent encounter for fracture with routine healing; J44.0 Chronic obstructive pulmonary disease with (acute) lower respiratory infection; J18.9 Pneumonia, unspecified organism; R29.6 Repeated falls; I10 Essential (primary) hypertension; I48.91 Unspecified atrial fibrillation; E11.9 Type 2 diabetes mellitus without complications; F17.210 Nicotine dependence, cigarettes, uncomplicated; Z86.73 Personal history of transient ischemic attack (TIA), and cerebral infarction without residual deficits; Z79.899 Other long term (current) drug therapy; Z79.82 Long term (current) use of aspirin; Z88.1 Allergy status to other antibiotic agents
CPT/HCPCS: 32555; 36415; 71045; 71046; 71260; 80053; 82947; 83615; 83735; 84157; 85025; 85027; 85610; 85730; 87070; 87205; 88108; 89051; 92610; 94640; 94760; 99284-25; G0378; J1815; Q9967

== ENCOUNTER 2019-05-06 16:47 | Emergency (ER) | payer MEDICARE, OTHER ==
[~2019-05-06] VITALS: Ht 165.1 cm; Wt 63.0 kg
[~2019-05-06 16:47] MED LIST changes: +AMOCLA875 PO; +Advair Hfa 230-12 GM INH; +B-1100 MG PO; +CHOL10002 PO; +CYAN500 PO; +FINA5 PO; +MAG6464 MG PO; +MELATONIN5 M1 PO; +Metoprolol Tart25 MG PO; +NOVOLOG FL100 UNIT/1 SC; +QUET25 PO; +VIRT-PHOS 250250 MG PO
[2019-05-06 17:38] LABS: BASOPHILS ABSOLUTE AUTO 0.06 K/mm3 (0.00-0.23); BASOPHILS PERCENT AUTO 1 % (0-2); EOSINOPHILS ABSOLUTE AUTO 0.25 K/mm3 (0.00-0.68); EOSINOPHILS PERCENT AUTO 2 % (0-6); Hematocrit 36.6 % (37.0-53.0); Hemoglobin 11.9 g/dL (13.5-17.5); IMMATURE GRAN ABSOLUTE AUTO 0.04 K/mm3 (0.00-0.10); IMMATURE GRAN PERCENT AUTO 0 % (0-1); LYMPHOCYTES ABSOLUTE AUTO 2.38 K/mm3 (0.84-5.20); LYMPHOCYTES PERCENT AUTO 19 % (21-46); MONOCYTES ABSOLUTE AUTO 0.88 K/mm3 (0.16-1.47); MONOCYTES PERCENT AUTO 7 % (4-13); Mean Corpuscular HGB Conc 32.5 g/dL (31.5-36.5); Mean Corpuscular Volume 92 fL (80-100); Mean Platelet Volume 10.8 fL (9.1-12.4); NEUTROPHILS ABSOLUTE AUTO 8.82 K/mm3 (1.96-9.15); NEUTROPHILS PERCENT AUTO 71 % (41-73); Platelet Count 263 K/mm3 (150-400); RDW Coefficient Variation 14.9 % (11.7-14.2); RDW Standard Deviation 51.1 fL (35.1-46.3); Red Blood Cell Count 3.97 M/mm3 (4.30-5.90); White Blood Cell Count 12.43 K/mm3 (4.00-11.30)
[2019-05-06 17:55] LABS: Alanine Aminotransfer (ALT/SGP 15 U/L (12-78); Albumin, Blood 2.6 g/dL (3.4-5.0); Albumin/Globulin Ratio 0.6 (0.8-1.8); Alk Phos 134 U/L (50-136); Anion Gap 5 mmol/L (6-16); Aspartate Aminotrans (AST/SGOT 15 U/L (12-37); Bilirubin, Total 0.6 mg/dL (0.1-1.0); Blood Urea Nitrogen 10 mg/dL (8-24); Bun/Creatinine Ratio 16.8 (12.0-20.0); CO2, Blood 27 mmol/L (21-32); Calcium, Blood 8.8 mg/dL (8.5-10.1); Chloride, Blood 109 mmol/L (98-108); Creatinine, Blood 0.59 mg/dL (0.60-1.20); Glomerular Filtration Rate >60 (60-); Glucose, Blood 126 mg/dL (70-99); Sodium, Blood 141 mmol/L (136-145); Total Protein, Blood 6.6 g/dL (6.4-8.2)
== END 2019-05-06 19:03 | disposition home or self-care (01) ==
LOC: ER 16:47
PROVIDERS: Physician Assistant
DX: S22.42XA Multiple fractures of ribs, left side, initial encounter for closed fracture (principal); J90 Pleural effusion, not elsewhere classified; R11.2 Nausea with vomiting, unspecified; F03.90 Unspecified dementia, unspecified severity, without behavioral disturbance, psychotic disturbance, mood disturbance, and anxiety; X58.XXXA Exposure to other specified factors, initial encounter
CPT/HCPCS: 36415; 71046; 80053; 83690; 85025; 93005; 93010; 99284-25

== ENCOUNTER 2019-06-10 22:29 | Emergency (ER) | payer MEDICARE, OTHER ==
[~2019-06-10] VITALS: Ht 167.6 cm; Wt 59.0 kg
[2019-06-10] MEDS ORDERED: NEBI10 PO (23:46)
[2019-06-10] MEDS ORDERED: CARVEDILOL ER10 MG PO (23:47)
[2019-06-10] MEDS ORDERED: SITA100T2 PO (23:48)
[2019-06-10] MEDS ORDERED: METF500 PO (23:49)
[2019-06-11 00:03] LABS: BASOPHILS ABSOLUTE AUTO 0.08 K/mm3 (0.00-0.23); BASOPHILS PERCENT AUTO 1 % (0-2); EOSINOPHILS ABSOLUTE AUTO 0.13 K/mm3 (0.00-0.68); EOSINOPHILS PERCENT AUTO 1 % (0-6); Hematocrit 30.1 % (37.0-53.0); Hemoglobin 9.9 g/dL (13.5-17.5); IMMATURE GRAN ABSOLUTE AUTO 0.05 K/mm3 (0.00-0.10); IMMATURE GRAN PERCENT AUTO 0 % (0-1); LYMPHOCYTES ABSOLUTE AUTO 2.39 K/mm3 (0.84-5.20); LYMPHOCYTES PERCENT AUTO 19 % (21-46); MONOCYTES ABSOLUTE AUTO 0.81 K/mm3 (0.16-1.47); MONOCYTES PERCENT AUTO 6 % (4-13); Mean Corpuscular HGB 29.9 pg (26.0-34.0); Mean Corpuscular HGB Conc 32.9 g/dL (31.5-36.5); Mean Corpuscular Volume 91 fL (80-100); Mean Platelet Volume 11.1 fL (9.1-12.4); NEUTROPHILS ABSOLUTE AUTO 9.27 K/mm3 (1.96-9.15); NEUTROPHILS PERCENT AUTO 73 % (41-73); Platelet Count 243 K/mm3 (150-400); RDW Coefficient Variation 14.8 % (11.7-14.2); RDW Standard Deviation 49.7 fL (35.1-46.3); Red Blood Cell Count 3.31 M/mm3 (4.30-5.90); White Blood Cell Count 12.73 K/mm3 (4.00-11.30)
[2019-06-11 00:19] LABS: International Normalized Ratio 0.97; Prothrombin Time Results 10.3 Sec (9.7-11.5)
[2019-06-11 00:26] LABS: Alanine Aminotransfer (ALT/SGP 18 U/L (12-78); Albumin/Globulin Ratio 0.9 (0.8-1.8); Alk Phos 135 U/L (50-136); Anion Gap 5 mmol/L (6-16); Aspartate Aminotrans (AST/SGOT 15 U/L (12-37); Bilirubin, Total 0.3 mg/dL (0.1-1.0); Blood Urea Nitrogen 11 mg/dL (8-24); Bun/Creatinine Ratio 14.5 (12.0-20.0); CO2, Blood 29 mmol/L (21-32); Calcium, Blood 8.5 mg/dL (8.5-10.1); Chloride, Blood 105 mmol/L (98-108); Creatinine, Blood 0.76 mg/dL (0.60-1.20); Globulin, Blood 3.3 g/dL (2.2-4.0); Glomerular Filtration Rate >60 (60-); Glucose, Blood 122 mg/dL (70-99); Potassium, Blood 4.1 mmol/L (3.5-5.5); Sodium, Blood 139 mmol/L (136-145); Total Protein, Blood 6.3 g/dL (6.4-8.2)
== END 2019-06-11 02:30 | disposition home or self-care (01) ==
LOC: ER 22:29
PROVIDERS: Emergency Medicine
DX: I97.638 Postprocedural hematoma of a circulatory system organ or structure following other circulatory system procedure (principal); F03.90 Unspecified dementia, unspecified severity, without behavioral disturbance, psychotic disturbance, mood disturbance, and anxiety; F17.200 Nicotine dependence, unspecified, uncomplicated; Z86.73 Personal history of transient ischemic attack (TIA), and cerebral infarction without residual deficits; Z95.828 Presence of other vascular implants and grafts; Z88.1 Allergy status to other antibiotic agents; Z88.8 Allergy status to other drugs, medicaments and biological substances; Z79.899 Other long term (current) drug therapy; Z79.4 Long term (current) use of insulin; Z79.82 Long term (current) use of aspirin
CPT/HCPCS: 36415; 73706; 80053; 85025; 85610; 99284-25; Q9967

== ENCOUNTER 2019-06-15 13:35 | Emergency (ER) | payer MEDICARE, OTHER ==
[~2019-06-15] VITALS: Ht 177.8 cm; Wt 59.0 kg
[~2019-06-15 13:35] MED LIST changes: +CARVEDILOL ER10 MG PO
== END 2019-06-15 17:01 | disposition home or self-care (01) ==
LOC: ER 13:35
DX: M79.81 Nontraumatic hematoma of soft tissue (principal); F03.90 Unspecified dementia, unspecified severity, without behavioral disturbance, psychotic disturbance, mood disturbance, and anxiety; F17.200 Nicotine dependence, unspecified, uncomplicated; Z88.1 Allergy status to other antibiotic agents; Z88.8 Allergy status to other drugs, medicaments and biological substances; Z79.4 Long term (current) use of insulin; Z79.899 Other long term (current) drug therapy; Z79.82 Long term (current) use of aspirin; Z86.73 Personal history of transient ischemic attack (TIA), and cerebral infarction without residual deficits
CPT/HCPCS: 93926; 99284-25

== ENCOUNTER → 2019-07-01 | Outpatient (CLI) | payer MEDICARE, OTHER ==
[2019-07-01 11:36] LABS: Source, Urine Clean Catch
[2019-07-01 12:22] LABS: Bilirubin, Urine Neg (Neg); Blood, Urine Neg (Neg); Glucose Qualitative, Urine Neg (Neg); Ketones, Urine Neg (Neg); Leukocyte Esterase, Urine Neg (Neg); Nitrite, Urine Neg (Neg); Protein, Urine Neg (Neg); Urobilinogen, Urine NORM (Normal); pH, Urine 6.5 (5.0-8.0)
[2019-07-01 12:35] LABS: Appearance, Urine Clear (Clear); Color, Urine Yellow (P-Yellow)
== END | disposition home or self-care (01) ==
LOC: LAB SHORT 09:00 → LAB 09:00
PROVIDERS: Family Medicine
DX: N39.0 Urinary tract infection, site not specified (principal)
CPT/HCPCS: 81003

== ENCOUNTER 2019-10-24 00:47 | Observation (INO) | payer MEDICARE, OTHER ==
[~2019-10-24] VITALS: Ht 165.1 cm; Wt 66.2 kg
[~2019-10-24 00:47] MED LIST changes: -AMLO5 PO
[2019-10-24] MEDS ORDERED: BASAGLAR K100 UNIT/2 SC (01:24)
[2019-10-24 01:51] LABS: BASOPHILS ABSOLUTE AUTO 0.05 K/mm3 (0.00-0.23); BASOPHILS PERCENT AUTO 1 % (0-2); EOSINOPHILS ABSOLUTE AUTO 0.15 K/mm3 (0.00-0.68); EOSINOPHILS PERCENT AUTO 2 % (0-6); Hematocrit 34.9 % (37.0-53.0); IMMATURE GRAN ABSOLUTE AUTO 0.04 K/mm3 (0.00-0.10); IMMATURE GRAN PERCENT AUTO 1 % (0-1); LYMPHOCYTES ABSOLUTE AUTO 1.77 K/mm3 (0.84-5.20); LYMPHOCYTES PERCENT AUTO 27 % (21-46); MONOCYTES ABSOLUTE AUTO 0.67 K/mm3 (0.16-1.47); MONOCYTES PERCENT AUTO 10 % (4-13); Mean Corpuscular HGB 27.4 pg (26.0-34.0); Mean Corpuscular HGB Conc 31.5 g/dL (31.5-36.5); Mean Corpuscular Volume 87 fL (80-100); Mean Platelet Volume 11.5 fL (9.1-12.4); NEUTROPHILS ABSOLUTE AUTO 3.86 K/mm3 (1.96-9.15); NEUTROPHILS PERCENT AUTO 59 % (41-73); Platelet Count 242 K/mm3 (150-400); RDW Coefficient Variation 17.2 % (11.7-14.2); RDW Standard Deviation 54.5 fL (35.1-46.3); Red Blood Cell Count 4.01 M/mm3 (4.30-5.90); White Blood Cell Count 6.54 K/mm3 (4.00-11.30)
[2019-10-24 02:09] LABS: Alanine Aminotransfer (ALT/SGP 26 U/L (12-78); Albumin, Blood 3.2 g/dL (3.4-5.0); Albumin/Globulin Ratio 0.8 (0.8-1.8); Alk Phos 151 U/L (50-136); Anion Gap 6 mmol/L (6-16); Aspartate Aminotrans (AST/SGOT 33 U/L (12-37); Bilirubin, Total 0.4 mg/dL (0.1-1.0); Blood Urea Nitrogen 19 mg/dL (8-24); Bun/Creatinine Ratio 23.5 (12.0-20.0); CO2, Blood 30 mmol/L (21-32); Chloride, Blood 107 mmol/L (98-108); Creatinine, Blood 0.81 mg/dL (0.60-1.20); Globulin, Blood 4.2 g/dL (2.2-4.0); Glomerular Filtration Rate >60 (60-); Glucose, Blood 135 mg/dL (70-99); Potassium, Blood 3.8 mmol/L (3.5-5.5); Sodium, Blood 143 mmol/L (136-145); Total Protein, Blood 7.4 g/dL (6.4-8.2)
[2019-10-24 02:56] LABS: Magnesium, Blood 1.8 mg/dL (1.6-2.4)
--- NOTE | 2019-10-24 04:35 | NUR ---
ADMIT RECEIVED FROM ER VIA GURNEY. AWAKE AND ALERT. ORIENTED TO SELF AND PLACE. FOLLOWS COMMANDS. UPPER/LOWER EXTREMITY FIELD RADIO TECHNICIAN/STRENGTH EQUAL BILATERALLY. SLOW VERBAL RESPONSE. POSSIBLE COMMUNICATION BARRIER VS. DYSPHASIA FROM PREVIOUS CVA. STATES THAT PT DOES HAVE EXPRESSIVE APHASIA. MOVED SELF FROM GURNEY TO BED. GAIT SLIGHTLY UNSTEADY. BED ALARM IS ON. REPOSITIONS SELF IN BED. DENIES C/O PAIN OR DISCOMFORT AT THIS TIME. MONITOR SHOWS PACED RHYTHM, RATE 60s. BP STABLE. RA SATS STABLE. AFEBRILE. SEE ADMIT ASSESSMENT FOR FULL ASSESSMENT.
--- NOTE | 2019-10-24 06:50 | NUR ---
SHIFT SUMMARY NO ACUTE CHANGES. RECEIVED FLU VACCINE. BED ALARM IS ON. ECHO TO BE DONE THIS AM, WELL A CARDIOLOGY CONSULT. WILL REPORT TO DAY SHIFT RN WHEN AVAILABLE.
[2019-10-24 07:04] LABS: Adenovirus Not Detected (NOT DETECT); Bordetella pertussis Not Detected (NOT DETECT); Chlamydophila pneumoniae Not Detected (NOT DETECT); Coronavirus 229E Not Detected (NOT DETECT); Coronavirus HKU1 Detected (NOT DETECT); Coronavirus NL63 Not Detected (NOT DETECT); Coronavirus OC43 Not Detected (NOT DETECT); Human Metapneumovirus Not Detected (NOT DETECT); Human Rhinovirus/Enterovirus Not Detected (NOT DETECT); Influenza A Not Detected (NOT DETECT); Influenza A/2009-H1 Not Detected (NOT DETECT); Influenza A/H1 Not Detected (NOT DETECT); Influenza A/H3 Not Detected (NOT DETECT); Influenza B Not Detected (NOT DETECT); Mycoplasma pneumoniae Not Detected (NOT DETECT); Parainfluenza Virus 1 Not Detected (NOT DETECT); Parainfluenza Virus 2 Not Detected (NOT DETECT); Parainfluenza Virus 3 Not Detected (NOT DETECT); Parainfluenza Virus 4 Not Detected (NOT DETECT); Respiratory Syncytial Virus Not Detected (NOT DETECT)
--- NOTE | 2019-10-24 07:20 | NUR ---
ASSUMED CARE OF PATIENT; SEE ASSESSMENT CHARTING FOR DETAILS. LUNGS CLEAR AT PRESENT; BIOX 93-95% ON ROOM AIR; SLEEPING WHEN NOT DISTURBED. PLEASANT AND COOPERATIVE; SLOW TO RESPOND TO QUESTIONS BUT MANAGES TO CONVEY HIS MESSAGE/ANSWERS. MONITOR REMAINS WITH PACED RHYTHM; VSS. NO PERIPHERAL EDEMA NOTED. PLACED NPO STATUS TIL SEEN BY TERRITORY SERVICE REPRESENTATIVE (DR. MELENDEZ). SPOUSE WENT HOME TO CHANGE AND WILL RETURN WITH UPDATED MED. LIST AND ?POLST.
--- NOTE | 2019-10-24 07:30 | NUR ---
DR. MELENDEZ ROUNDED. SPOKE TO RN AND TO PATIENT. WANTS PATIENT TO REMAIN NPO; AWAITING ECHO. TO BE DONE AND FOR SPOUSE TO RETURN TO DETERMINE POC.
--- NOTE | 2019-10-24 08:25 | NUR ---
TRBAND SITE UNCHANGED; NO S/SX OF HEMATOMA; GOOD PULSE; CUFF INFLATED WITH 11-CC AIR.
[2019-10-24 10:13] LABS: Troponin I 5.61 ng/mL (0.000-0.040)
--- NOTE | 2019-10-24 10:45 | NUR ---
T/C TO RE: increased troponin AND TO INFORM ECHO. COMPLETED AND SPOUSE HAS RETURNED. PHYSICIAN WILL BE DOWN SHORTLY.
--- NOTE | 2019-10-24 11:15 | NUR ---
DR. MELENDEZ HERE; SPOKE TO PATIENT/SPOUSE; CONSENT SIGNED FOR CORONARY ANGIOGRAM TO BE GIVEN TODAY.
--- NOTE | 2019-10-24 14:39 | NUR ---
PATIENTS MOUTH SWABED WITH PINK/DIPPED SWABS; PATIENT VERY HUNGARY AND THIRSTY. ANOTHER PATIENT WAS EMERGENT FOR HEART CENTER SO PATIENT REMAINS NPO AND AWAITING HIS TURN FOR ANGIOGRAM.
--- NOTE | 2019-10-24 15:45 | NUR ---
TO HEART CENTER WITH COLLEGE OR UNIVERSITY DEPARTMENT HEAD AND 2 RN'S; CHART AND PATIENTS' SPOUSE ACCOMPANYING.
--- NOTE | 2019-10-24 17:06 | NUR ---
ECHOCARDIOGRAM COMPLETED
--- NOTE | 2019-10-24 18:08 | NUR ---
[facility]ED [facility]; PATIENT ALERT; C/O WANTING TO EAT. NS TO INFUSE AT 200/HR X 5 HRS AND PO FLUIDS TO BE ENCOURAGED. TR BAND SITE INTACT; GOOD PULSE AND WAVEFORM FROM RADIAL ARTERY. 11CC OF AIR INFLATING CUFF, PER FLOYD FROM [facility]. MONITOR WITH NSR/RATE 70'S; PACEMAKER IS SET AT 60/MIN. SBP 170'S WILL MONITOR. VOIDED 250ML OF MED. NARESH URINE ONCE SETTLED BACK IN ROOM. FAMILY AT BEDSIDE. SPOUSE SPOKE TO INTERVENTIONALIST, Genia RUBIO AND TO DR. MELENDEZ AFTER PROCEDURE. CURRENTLY SPOUSE AT BEDSIDE AND ASSISTING PATIENT WITH MEAL; APPETITE GOOD AND NO SWALLOW ISSUES. WILL REPORT TO ONCOMING RN.
--- NOTE | 2019-10-24 18:40 | NUR ---
TR BAND SITE REMAINS STABLE; NO S/SX'S OF BLEEDING/HEMATOMA/SWELLING. GOOD PULSE AND WAVEFORM WITH BIOX. REMAINS ON ROOM AIR; BIOX 100%.
--- NOTE | 2019-10-24 21:00 | NUR ---
ASSUMPTION OF CARE PT AWAKE IN BED, ORIENTED TO PLACE, FAMILY AND FOLLOWING DIRECTIONS, UNSURE OF WHY HE IS IN THE HOSPITAL. STS PT HAS EXPRESSIVE APHASIA R/T PREVIOUS CVA, PT CALM AND COOPERATIVE, RESPONDS WITH LAUGHTER WHEN HE DOES NOT UNDERSTAND A QUESTION. O2 SATURATIONS MAINTAINED> 90% ON RA, MONITOR SHOWS SINUS RHYTHM WITH WIDE QRS, HR 70'S, HTN WITH SBP 160'S, SCHEDULED BP MEDS PROVIDED. PT TOLERATING PO INTAKE, USING URINAL AT BEDSIDE TO VOID WITH ASSISTANCE FROM , FREQUENT URINATION NOTED. TR BAND IN PLACE WITH WRIST IMMOBILIZER, SITE C/D/I, NO BLOOD/HEMATOMA/PAIN TO THE SITE. CALL LIGHT WITHIN REACH, BED ALARM IN PLACE.
[2019-10-25] MEDS ORDERED: AMLO5 PO (00:59)
[2019-10-25 05:53] LABS: BASOPHILS ABSOLUTE AUTO 0.01 K/mm3 (0.00-0.23); BASOPHILS PERCENT AUTO 0 % (0-2); EOSINOPHILS PERCENT AUTO 0 % (0-6); Hematocrit 30.8 % (37.0-53.0); Hemoglobin 9.9 g/dL (13.5-17.5); IMMATURE GRAN ABSOLUTE AUTO 0.04 K/mm3 (0.00-0.10); IMMATURE GRAN PERCENT AUTO 0 % (0-1); LYMPHOCYTES ABSOLUTE AUTO 1.45 K/mm3 (0.84-5.20); LYMPHOCYTES PERCENT AUTO 13 % (21-46); MONOCYTES ABSOLUTE AUTO 0.45 K/mm3 (0.16-1.47); MONOCYTES PERCENT AUTO 4 % (4-13); Mean Corpuscular HGB 27.6 pg (26.0-34.0); Mean Corpuscular HGB Conc 32.1 g/dL (31.5-36.5); Mean Corpuscular Volume 86 fL (80-100); Mean Platelet Volume 11.2 fL (9.1-12.4); NEUTROPHILS PERCENT AUTO 83 % (41-73); Platelet Count 204 K/mm3 (150-400); RDW Coefficient Variation 17.2 % (11.7-14.2); RDW Standard Deviation 53.9 fL (35.1-46.3); Red Blood Cell Count 3.59 M/mm3 (4.30-5.90); White Blood Cell Count 11.15 K/mm3 (4.00-11.30)
[2019-10-25 06:13] LABS: Anion Gap 10 mmol/L (6-16); Blood Urea Nitrogen 20 mg/dL (8-24); Bun/Creatinine Ratio 33.7 (12.0-20.0); CO2, Blood 22 mmol/L (21-32); Calcium, Blood 8.5 mg/dL (8.5-10.1); Chloride, Blood 108 mmol/L (98-108); Creatinine, Blood 0.59 mg/dL (0.60-1.20); Glomerular Filtration Rate >60 (60-); Glucose, Blood 272 mg/dL (70-99); Potassium, Blood 3.9 mmol/L (3.5-5.5); Sodium, Blood 140 mmol/L (136-145)
--- NOTE | 2019-10-25 06:22 | NUR ---
SHIFT SUMMARY NO ACUTE CHANGES T/O SHIFT, PT REMAINS MILDLY CONFUSED (HX OF DEMENTIA AND CVA) FOLLOWS DIRECTIONS, EASILY DIRECTABLE. PT MAINTAINING O2 SATURATIONS ON RA, HR 60'S-70'S, BP STABLE. DENIES CP AND SOB T/O SHIFT. TR BAND REMOVED THIS SHIFT, R RADIAL SITE REMAINS C/D/I, NO BLEEDING, HEMATOMA OR TENDERNESS NOTED. WRIST IMMOBILIZER REMAINS IN PLACE. TOLERATING PO INTAKE. AT BEDSIDE T/O SHIFT, ASSISTING PT WITH USE OF URINAL, EATING, COMFORT MEASURES.
--- NOTE | 2019-10-25 07:15 | NUR ---
ASSUMED CARE AT 0700. REPORT FROM KM MORENO. PT RESTING IN BED. SO AT BEDSIDE. PT A&OX 2, FOLLOWS DIRECTIONS, EASILY REDIRECTABLE. SO STATES PT AT BASELINE NEUROLOGICALLY. PT DENIES CP OR SOB. LUNGS DIMINSHED IN BASES. WET COUGH NOTED OCCASIONALLY. PT P/W/D. ARM BOARD TO RIGHT ARM, RADIAL ACCESS, DRESSING IN PLACE, C/D/I. DENIES PAIN, SOFT, NON TENDER. NO BLEEDING NOTED. DR MELENDEZ IN TO SEE PT. ASA DOSE CHANGED TO 81 MG, VERIFIED PLAVIX WAS ON EMAR, INCREASED NORVASC TO 5 MG BID FOR SBP 130'S. ALSO REQUESTED THAT ATORVASTATIN 80 MG BE ADDED, PT HAS LISTED ALLERGY c MUSCLE PAIN LISTED. SO STATES THIS WAS LISTED BEFORE SHE WAS WITH HIM SO SHE IS UNAWARE OF REACTION. WILL F/U c DR ALEXANDER TODAY. WILL CONTINUE TO MONITOR.
[2019-10-25 07:43] LABS: CHOL/HDL RATIO 3.8; Cholesterol 195 mg/dL (50-200); HDL Cholesterol 52 mg/dL (>39); LDL/HDL RATIO 2.4; Low Density Lipoprotein Chol 126 mg/dL (0-110); Triglycerides 86 mg/dL (30-160); Very Low Density Lipoprot Chol 17 mg/dL (6-32)
--- NOTE | 2019-10-25 10:10 | NUR ---
CALL PLACED TO DR LEIJA'S OFFICE. SPOKE c MED STAGE HAND. STATES PT REPORTED MUSCLE ACHING D/T ATORVASTIN IN 2013. DISCUSSED c DR ALEXANDER AND PT'S SO. PLAN FOR PT TO TRY ATORVASTAIN AGAIN AND POSSIBLE CHANGE AT PCP APPT IF NEEDED.
[2019-10-25] MEDS ORDERED: ALBU2.5V5 INH (12:10)
[2019-10-25] MEDS ORDERED: ATOR80 PO (12:11)
[2019-10-25] MEDS ORDERED: CLOP75 PO (12:12)
[2019-10-25] MEDS ORDERED: Prednisone10 MG PO (12:13)
[2019-10-25 12:44] LABS: Glucose, Blood 558 mg/dL (70-99)
--- NOTE | 2019-10-25 13:09 | NUR ---
SPOKE WITH DR. HARRISON PT BG RECHECKED AND GIVE SLIDING SCALE COVERAGE PER DR. VINCENT. ONCE BG STABLE PT MAY DISCHARGE.
--- NOTE | 2019-10-25 14:42 | NUR ---
PT CONTINUES TO HAVE ELEVATED BG CALL TO DR. HARRISON. PER DR. VINCENT. ADMIN 10U NOVOLOG NOW, THEN RECHECK BG IN 1 HOUR.
--- NOTE | 2019-10-25 15:57 | NUR ---
PT A&O X 2. SMILING, LOOKING AROUND ROOM. CONVERSING c . CHEMBG 388. SO STATES SHE FEELS COMFORTABLE TAKING HIM HOME AT THIS TIME. ASSISTED PT TO GET DRESSED. ALL BELONGINGS HOME c SO. OTD NAD.
== END 2019-10-25 15:57 | disposition home or self-care (01) ==
LOC: ER 00:47 → ICUW 00:48 → ER 04:41 → ICUW 04:41
PROVIDERS: Emergency Medicine; Internal Medicine; ADMIT Internal Medicine
PROC: 4A023N7 Measurement of Cardiac Sampling and Pressure, Left Heart, Percutaneous Approach (ICD-10-PCS; principal; 2019-10-24)
PROC: 027034Z Dilation of Coronary Artery, One Artery with Drug-eluting Intraluminal Device, Percutaneous Approach (ICD-10-PCS; 2019-10-24)
PROC: B211YZZ Fluoroscopy of Multiple Coronary Arteries using Other Contrast (ICD-10-PCS; 2019-10-24)
DX: I21.4 Non-ST elevation (NSTEMI) myocardial infarction (principal); J44.0 Chronic obstructive pulmonary disease with (acute) lower respiratory infection; J44.1 Chronic obstructive pulmonary disease with (acute) exacerbation; J20.8 Acute bronchitis due to other specified organisms; I10 Essential (primary) hypertension; I07.1 Rheumatic tricuspid insufficiency; E11.9 Type 2 diabetes mellitus without complications; N40.0 Benign prostatic hyperplasia without lower urinary tract symptoms; F17.210 Nicotine dependence, cigarettes, uncomplicated; I69.320 Aphasia following cerebral infarction; D64.9 Anemia, unspecified; I48.0 Paroxysmal atrial fibrillation; F03.90 Unspecified dementia, unspecified severity, without behavioral disturbance, psychotic disturbance, mood disturbance, and anxiety; F32.9 Major depressive disorder, single episode, unspecified; Z95.0 Presence of cardiac pacemaker; Z79.4 Long term (current) use of insulin; Z79.899 Other long term (current) drug therapy
CPT/HCPCS: 0099U; 36415; 71046; 76937; 80048; 80053; 80061; 82550; 82947; 83036; 83735; 83880; 84484; 85025; 85347; 90686; 92978; 93005; 93010; 93306; 93458; 94640; 94760; 96372; 96374; 96375; 96376; 99152; 99153; 99285-25; A9270; C1724; C1725; C1753; C1769; C1874; C1887; C1894; C9600; C9602; G0008; G0378; J0456; J1644; J1650; J2250; J2930; J3010; J7030; J7050; Q9967

== ENCOUNTER → 2020-03-02 | Outpatient (CLI) | payer MEDICARE, OTHER ==
[~2020-03-02] MED LIST changes: +ALBU2.5V5 INH; +AMLO5 PO; +ATOR80 PO; +BASAGLAR K100 UNIT/2 SC; +CLOP75 PO; +Prednisone10 MG PO
[2020-03-04 14:16] LABS: Stool Occult Bld Immuno 1 Positive (NEGATIVE)
== END | disposition home or self-care (01) ==
LOC: LAB SHORT 12:55 → OLS 12:55 → LAB FUT 02-24 12:30
PROVIDERS: Internal Medicine Gastroenterology
DX: Z09 Encounter for follow-up examination after completed treatment for conditions other than malignant neoplasm (principal); Z86.010 Personal history of colon polyps
CPT/HCPCS: 82274

== ENCOUNTER 2020-05-04 19:07 | Emergency (ER) | payer MEDICARE, OTHER ==
[~2020-05-04] VITALS: Ht 170.2 cm; Wt 67.1 kg
[2020-05-04 21:34] LABS: Source, Urine Voided
[2020-05-04 21:37] LABS: Bilirubin, Urine Neg (Neg); Blood, Urine Neg (Neg); Glucose Qualitative, Urine 2+ (Neg); Ketones, Urine Neg (Neg); Leukocyte Esterase, Urine Neg (Neg); Nitrite, Urine Neg (Neg); Protein, Urine Neg (Neg); Urobilinogen, Urine NORM (Normal)
[2020-05-04 21:40] LABS: Appearance, Urine Clear (Clear); Color, Urine Yellow (P-Yellow)
[2020-05-04] MEDS ORDERED: TRAM50 PO (21:56)
== END 2020-05-04 22:06 | disposition home or self-care (01) ==
LOC: ER 19:07
PROVIDERS: Emergency Medicine
DX: M17.11 Unilateral primary osteoarthritis, right knee (principal); Z88.1 Allergy status to other antibiotic agents; Z88.8 Allergy status to other drugs, medicaments and biological substances; Z79.899 Other long term (current) drug therapy; Z79.4 Long term (current) use of insulin; Z79.82 Long term (current) use of aspirin; Z86.73 Personal history of transient ischemic attack (TIA), and cerebral infarction without residual deficits; E11.9 Type 2 diabetes mellitus without complications; J44.9 Chronic obstructive pulmonary disease, unspecified; I10 Essential (primary) hypertension; F03.90 Unspecified dementia, unspecified severity, without behavioral disturbance, psychotic disturbance, mood disturbance, and anxiety; I25.2 Old myocardial infarction
CPT/HCPCS: 73560-RT; 81003; 82947; 99284-25

== ENCOUNTER 2020-08-26 00:35 | Emergency (ER) | payer MEDICARE, OTHER ==
[~2020-08-26] VITALS: Ht 170.2 cm; Wt 68.0 kg
[~2020-08-26 00:35] MED LIST changes: -BASAGLAR K100 UNIT/2 SC; +BASAGLAR K100 UNIT/5 SC; +TRAM50 PO
[2020-08-26 01:11] LABS: BASOPHILS ABSOLUTE AUTO 0.08 K/mm3 (0.00-0.23); BASOPHILS PERCENT AUTO 1 % (0-2); EOSINOPHILS ABSOLUTE AUTO 0.19 K/mm3 (0.00-0.68); EOSINOPHILS PERCENT AUTO 1 % (0-6); Hematocrit 40.4 % (37.0-53.0); Hemoglobin 13.1 g/dL (13.5-17.5); IMMATURE GRAN ABSOLUTE AUTO 0.07 K/mm3 (0.00-0.10); IMMATURE GRAN PERCENT AUTO 0 % (0-1); LYMPHOCYTES ABSOLUTE AUTO 1.73 K/mm3 (0.84-5.20); LYMPHOCYTES PERCENT AUTO 11 % (21-46); MONOCYTES ABSOLUTE AUTO 1.09 K/mm3 (0.16-1.47); MONOCYTES PERCENT AUTO 7 % (4-13); Mean Corpuscular HGB 29.6 pg (26.0-34.0); Mean Corpuscular HGB Conc 32.4 g/dL (31.5-36.5); Mean Corpuscular Volume 91 fL (80-100); Mean Platelet Volume 11.1 fL (9.1-12.4); NEUTROPHILS ABSOLUTE AUTO 13.38 K/mm3 (1.96-9.15); NEUTROPHILS PERCENT AUTO 81 % (41-73); Platelet Count 209 K/mm3 (150-400); RDW Coefficient Variation 14.4 % (11.7-14.2); RDW Standard Deviation 48.4 fL (35.1-46.3); Red Blood Cell Count 4.42 M/mm3 (4.30-5.90); White Blood Cell Count 16.54 K/mm3 (4.00-11.30)
[2020-08-26 01:26] LABS: Alanine Aminotransfer (ALT/SGP 47 U/L (12-78); Albumin, Blood 3.9 g/dL (3.4-5.0); Albumin/Globulin Ratio 1.1 (0.8-1.8); Alk Phos 159 U/L (50-136); Anion Gap 6 mmol/L (6-16); Aspartate Aminotrans (AST/SGOT 48 U/L (12-37); Bilirubin, Total 0.5 mg/dL (0.1-1.0); Blood Urea Nitrogen 13 mg/dL (8-24); CO2, Blood 27 mmol/L (21-32); Calcium, Blood 9.2 mg/dL (8.5-10.1); Chloride, Blood 101 mmol/L (98-108); Creatinine, Blood 0.76 mg/dL (0.60-1.20); Globulin, Blood 3.7 g/dL (2.2-4.0); Glomerular Filtration Rate >60 (60-); Glucose, Blood 105 mg/dL (70-99); Potassium, Blood 3.9 mmol/L (3.5-5.5); Sodium, Blood 134 mmol/L (136-145); Total Protein, Blood 7.6 g/dL (6.4-8.2)
[2020-08-26 02:35] LABS: Source, Urine Clean Catch
[2020-08-26 02:38] LABS: Bilirubin, Urine Neg (Neg); Blood, Urine Neg (Neg); Glucose Qualitative, Urine Neg (Neg); Ketones, Urine Neg (Neg); Leukocyte Esterase, Urine Neg (Neg); Nitrite, Urine Neg (Neg); Protein, Urine Neg (Neg); Urobilinogen, Urine NORM (Normal)
[2020-08-26 02:55] LABS: U Amphetamine Screen Not Detected; U Barbituate Screen Not Detected; U Benzodiazapine Screen Not Detected; U Buprenorphine Screen Not Detected; U Cannabinoids Screen DETECTED; U Cocaine Screen Not Detected; U Methadone Screen Not Detected; U Methamphetamine Screen Not Detected; U Opiates Screen Not Detected; U Oxycodone Screen Not Detected; U Phencyclidine Screen Not Detected; U Propoxyphene Screen Not Detected
[2020-08-26 02:56] LABS: Appearance, Urine Clear (Clear); Color, Urine Yellow (P-Yellow)
== END 2020-08-26 04:59 | disposition home or self-care (01) ==
LOC: ER 00:35
PROVIDERS: Emergency Medicine
DX: I10 Essential (primary) hypertension (principal); R41.0 Disorientation, unspecified; I69.120 Aphasia following nontraumatic intracerebral hemorrhage; J44.9 Chronic obstructive pulmonary disease, unspecified; E11.9 Type 2 diabetes mellitus without complications; I25.2 Old myocardial infarction; F03.90 Unspecified dementia, unspecified severity, without behavioral disturbance, psychotic disturbance, mood disturbance, and anxiety; Z79.4 Long term (current) use of insulin; Z79.02 Long term (current) use of antithrombotics/antiplatelets; Z79.899 Other long term (current) drug therapy; Z88.8 Allergy status to other drugs, medicaments and biological substances; Z95.0 Presence of cardiac pacemaker; Z88.1 Allergy status to other antibiotic agents
CPT/HCPCS: 36415; 70450; 71045; 80053; 81003; 85025; 93005; 93010; 99285-25

== ENCOUNTER 2020-09-20 22:50 | Emergency (ER) | payer MEDICARE, OTHER ==
[~2020-09-20] VITALS: Ht 160 cm; Wt 72.6 kg
[~2020-09-20 22:50] MED LIST changes: +BASAGLAR SC; +GABAPENTIN600 MG PO; +LORAZEPAM0.5 MG PO; +Prinivil10 MG PO; +SEMGLEE PE100 UNIT/1 SC; +TIOT18 INH
[2020-09-20 23:52] LABS: BASOPHILS ABSOLUTE AUTO 0.07 K/mm3 (0.00-0.23); BASOPHILS PERCENT AUTO 1 % (0-2); EOSINOPHILS ABSOLUTE AUTO 0.32 K/mm3 (0.00-0.68); EOSINOPHILS PERCENT AUTO 4 % (0-6); Hematocrit 35.8 % (37.0-53.0); Hemoglobin 11.4 g/dL (13.5-17.5); IMMATURE GRAN ABSOLUTE AUTO 0.02 K/mm3 (0.00-0.10); IMMATURE GRAN PERCENT AUTO 0 % (0-1); LYMPHOCYTES ABSOLUTE AUTO 2.43 K/mm3 (0.84-5.20); LYMPHOCYTES PERCENT AUTO 30 % (21-46); MONOCYTES PERCENT AUTO 9 % (4-13); Mean Corpuscular HGB 29.6 pg (26.0-34.0); Mean Corpuscular HGB Conc 31.8 g/dL (31.5-36.5); Mean Corpuscular Volume 93 fL (80-100); NEUTROPHILS ABSOLUTE AUTO 4.52 K/mm3 (1.96-9.15); NEUTROPHILS PERCENT AUTO 56 % (41-73); Platelet Count 210 K/mm3 (150-400); RDW Coefficient Variation 14.3 % (11.7-14.2); RDW Standard Deviation 48.5 fL (35.1-46.3); Red Blood Cell Count 3.85 M/mm3 (4.30-5.90); White Blood Cell Count 8.06 K/mm3 (4.00-11.30)
[2020-09-21 00:07] LABS: Alanine Aminotransfer (ALT/SGP 35 U/L (12-78); Albumin, Blood 3.3 g/dL (3.4-5.0); Alk Phos 105 U/L (50-136); Anion Gap 5 mmol/L (6-16); Aspartate Aminotrans (AST/SGOT 40 U/L (12-37); Bilirubin, Total 0.3 mg/dL (0.1-1.0); Blood Urea Nitrogen 20 mg/dL (8-24); Bun/Creatinine Ratio 19.8 (12.0-20.0); CO2, Blood 27 mmol/L (21-32); Calcium, Blood 9.1 mg/dL (8.5-10.1); Chloride, Blood 104 mmol/L (98-108); Creatinine, Blood 1.01 mg/dL (0.60-1.20); Globulin, Blood 3.4 g/dL (2.2-4.0); Glomerular Filtration Rate >60 (60-); Glucose, Blood 127 mg/dL (70-99); Potassium, Blood 4.4 mmol/L (3.5-5.5); Sodium, Blood 136 mmol/L (136-145); Total Protein, Blood 6.7 g/dL (6.4-8.2); Troponin I <0.015 ng/mL (0.000-0.040)
[2020-09-21 01:39] LABS: Influenza A, PCR Negative (NEGATIVE); Influenza B, PCR Negative (NEGATIVE); Resp Syncytial Virus, PCR Negative (NEGATIVE); SARS-Cov-2 (COVID-19) PCR, MMC Negative (NEGATIVE)
[2020-09-21] MEDS ORDERED: BENZ100A PO (01:50)
== END 2020-09-21 02:05 | disposition home or self-care (01) ==
LOC: ER 22:50
PROVIDERS: Emergency Medicine; Physician Assistant
DX: I50.1 Left ventricular failure, unspecified (principal); I25.2 Old myocardial infarction; E11.9 Type 2 diabetes mellitus without complications; F03.90 Unspecified dementia, unspecified severity, without behavioral disturbance, psychotic disturbance, mood disturbance, and anxiety; I25.10 Atherosclerotic heart disease of native coronary artery without angina pectoris; J44.9 Chronic obstructive pulmonary disease, unspecified; F17.200 Nicotine dependence, unspecified, uncomplicated; Z20.828 Contact with and (suspected) exposure to other viral communicable diseases; Z79.4 Long term (current) use of insulin; Z79.02 Long term (current) use of antithrombotics/antiplatelets; Z79.899 Other long term (current) drug therapy; Z79.82 Long term (current) use of aspirin; Z88.1 Allergy status to other antibiotic agents; Z86.73 Personal history of transient ischemic attack (TIA), and cerebral infarction without residual deficits; Z95.0 Presence of cardiac pacemaker; Z95.5 Presence of coronary angioplasty implant and graft
CPT/HCPCS: 0241U; 36415; 71045; 80053; 83735; 83880; 84145; 84484; 85025; 93005; 93010; 99285-25

== ENCOUNTER → 2020-10-23 | Outpatient (CLI) | payer MEDICARE, OTHER ==
[~2020-10-23] MED LIST changes: +BENZ100A PO
== END | disposition home or self-care (01) ==
LOC: LAB 14:30 → LAB SHORT 14:30
DX: R82.90 Unspecified abnormal findings in urine (principal)
CPT/HCPCS: 87086

== ENCOUNTER 2021-01-25 01:41 | Emergency (ER) | payer MEDICARE, OTHER ==
[~2021-01-25] VITALS: Ht 172.7 cm; Wt 81.7 kg
[2021-01-25 02:27] LABS: BASOPHILS ABSOLUTE AUTO 0.09 K/mm3 (0.00-0.23); BASOPHILS PERCENT AUTO 1 % (0-2); EOSINOPHILS ABSOLUTE AUTO 0.36 K/mm3 (0.00-0.68); EOSINOPHILS PERCENT AUTO 4 % (0-6); Hematocrit 36.3 % (37.0-53.0); Hemoglobin 11.8 g/dL (13.5-17.5); IMMATURE GRAN ABSOLUTE AUTO 0.02 K/mm3 (0.00-0.10); IMMATURE GRAN PERCENT AUTO 0 % (0-1); LYMPHOCYTES ABSOLUTE AUTO 2.32 K/mm3 (0.84-5.20); LYMPHOCYTES PERCENT AUTO 26 % (21-46); MONOCYTES ABSOLUTE AUTO 0.58 K/mm3 (0.16-1.47); MONOCYTES PERCENT AUTO 7 % (4-13); Mean Corpuscular HGB 31.5 pg (26.0-34.0); Mean Corpuscular HGB Conc 32.5 g/dL (31.5-36.5); Mean Corpuscular Volume 97 fL (80-100); NEUTROPHILS ABSOLUTE AUTO 5.54 K/mm3 (1.96-9.15); NEUTROPHILS PERCENT AUTO 62 % (41-73); Platelet Count 193 K/mm3 (150-400); RDW Coefficient Variation 13.2 % (11.7-14.2); RDW Standard Deviation 47.5 fL (35.1-46.3); Red Blood Cell Count 3.75 M/mm3 (4.30-5.90); White Blood Cell Count 8.91 K/mm3 (4.00-11.30)
[2021-01-25 02:40] LABS: Alanine Aminotransfer (ALT/SGP 30 U/L (12-78); Albumin, Blood 3.6 g/dL (3.4-5.0); Albumin/Globulin Ratio 1.1 (0.8-1.8); Alk Phos 125 U/L (50-136); Anion Gap 4 mmol/L (6-16); Aspartate Aminotrans (AST/SGOT 26 U/L (12-37); Bilirubin, Total 0.4 mg/dL (0.1-1.0); Blood Urea Nitrogen 14 mg/dL (8-24); Bun/Creatinine Ratio 16.3 (12.0-20.0); CO2, Blood 25 mmol/L (21-32); Calcium, Blood 8.2 mg/dL (8.5-10.1); Chloride, Blood 114 mmol/L (98-108); Creatinine, Blood 0.86 mg/dL (0.60-1.20); Ethanol (Alcohol), Blood, Med <3 mg/dL; Globulin, Blood 3.4 g/dL (2.2-4.0); Glomerular Filtration Rate >60 (60-); Glucose, Blood 174 mg/dL (70-99); Potassium, Blood 3.7 mmol/L (3.5-5.5); Sodium, Blood 143 mmol/L (136-145)
[2021-01-25 02:41] LABS: International Normalized Ratio 0.98; Prothrombin Time Results 10.6 Sec (9.7-11.5)
[2021-01-25 03:19] LABS: Source, Urine Clean Catch
[2021-01-25 03:37] LABS: Bilirubin, Urine Neg (Neg); Blood, Urine 1+ (Neg); Glucose Qualitative, Urine Neg (Neg); Ketones, Urine Neg (Neg); Leukocyte Esterase, Urine Neg (Neg); Nitrite, Urine Neg (Neg); Protein, Urine 3+ (Neg); Urobilinogen, Urine NORM (Normal)
[2021-01-25 03:44] LABS: Appearance, Urine Clear (Clear); Color, Urine Yellow (P-Yellow)
[2021-01-25 03:45] LABS: Bacteria Rare /hpf; Squamous Epithelial Cells Few /hpf (Few); White Blood Cells, Urine Rare /hpf (0-5)
[2021-01-25 03:52] LABS: U Amphetamine Screen Not Detected; U Barbituate Screen Not Detected; U Benzodiazapine Screen Not Detected; U Buprenorphine Screen Not Detected; U Cannabinoids Screen DETECTED; U Cocaine Screen Not Detected; U Methadone Screen Not Detected; U Methamphetamine Screen Not Detected; U Opiates Screen Not Detected; U Oxycodone Screen Not Detected; U Phencyclidine Screen Not Detected; U Propoxyphene Screen Not Detected
== END 2021-01-25 05:55 | disposition home or self-care (01) ==
LOC: ER 01:41
PROVIDERS: Emergency Medicine
DX: R06.00 Dyspnea, unspecified (principal); J44.9 Chronic obstructive pulmonary disease, unspecified; I48.91 Unspecified atrial fibrillation; I11.0 Hypertensive heart disease with heart failure; I50.9 Heart failure, unspecified; E11.9 Type 2 diabetes mellitus without complications; F17.210 Nicotine dependence, cigarettes, uncomplicated; Z79.4 Long term (current) use of insulin; Z79.899 Other long term (current) drug therapy; Z79.02 Long term (current) use of antithrombotics/antiplatelets; Z88.1 Allergy status to other antibiotic agents
CPT/HCPCS: 36415; 71045; 71260; 80053; 81001; 83880; 85025; 85610; 93005; 93010; 96374-59; 99285-25; G0480; J1940; Q9967

== ENCOUNTER → 2021-05-15 | Outpatient (CLI) | payer MEDICARE, OTHER | END | disposition home or self-care (01) | LOC: LAB SHORT 12:00 → LAB 12:00 | DX: N39.0 Urinary tract infection, site not specified (principal) | CPT/HCPCS: 87086 ==

== ENCOUNTER 2021-06-30 11:52 | Inpatient (IN) | payer MEDICARE, OTHER ==
[~2021-06-30] VITALS: Ht 170.2 cm; Wt 67.5 kg
[~2021-06-30 11:52] MED LIST changes: -BIOTIN5000 MC1 SL; +Biotin SL; -CHOL10002 PO; +VITAMIN D32000 UNI1 PO
[2021-06-30 12:24] LABS: BASOPHILS ABSOLUTE AUTO 0.07 K/mm3 (0.00-0.23); BASOPHILS PERCENT AUTO 1 % (0-2); EOSINOPHILS ABSOLUTE AUTO 0.18 K/mm3 (0.00-0.68); EOSINOPHILS PERCENT AUTO 3 % (0-6); Hematocrit 37.7 % (37.0-53.0); Hemoglobin 12.5 g/dL (13.5-17.5); IMMATURE GRAN ABSOLUTE AUTO 0.02 K/mm3 (0.00-0.10); IMMATURE GRAN PERCENT AUTO 0 % (0-1); LYMPHOCYTES ABSOLUTE AUTO 1.53 K/mm3 (0.84-5.20); LYMPHOCYTES PERCENT AUTO 21 % (21-46); MONOCYTES ABSOLUTE AUTO 0.54 K/mm3 (0.16-1.47); MONOCYTES PERCENT AUTO 8 % (4-13); Mean Corpuscular HGB 30.5 pg (26.0-34.0); Mean Corpuscular HGB Conc 33.2 g/dL (31.5-36.5); Mean Corpuscular Volume 92 fL (80-100); Mean Platelet Volume 11.4 fL (9.1-12.4); NEUTROPHILS ABSOLUTE AUTO 4.82 K/mm3 (1.96-9.15); NEUTROPHILS PERCENT AUTO 67 % (41-73); Platelet Count 182 K/mm3 (150-400); RDW Coefficient Variation 13.5 % (11.7-14.2); RDW Standard Deviation 45.9 fL (35.1-46.3); White Blood Cell Count 7.16 K/mm3 (4.00-11.30)
[2021-06-30 12:43] LABS: International Normalized Ratio 1.03; Prothrombin Time Results 11.1 Sec (9.7-11.5)
[2021-06-30 12:48] LABS: Alanine Aminotransfer (ALT/SGP 48 U/L (12-78); Albumin, Blood 3.3 g/dL (3.4-5.0); Albumin/Globulin Ratio 0.9 (0.8-1.8); Alk Phos 135 U/L (50-136); Anion Gap 5 mmol/L (6-16); Aspartate Aminotrans (AST/SGOT 45 U/L (12-37); Bilirubin, Total 0.7 mg/dL (0.1-1.0); Blood Urea Nitrogen 18 mg/dL (8-24); Bun/Creatinine Ratio 20.1 (12.0-20.0); CO2, Blood 24 mmol/L (21-32); Calcium, Blood 9.3 mg/dL (8.5-10.1); Chloride, Blood 114 mmol/L (98-108); Globulin, Blood 3.8 g/dL (2.2-4.0); Glomerular Filtration Rate >60 (60-); Glucose, Blood 78 mg/dL (70-99); Potassium, Blood 3.8 mmol/L (3.5-5.5); Sodium, Blood 143 mmol/L (136-145); Total Protein, Blood 7.1 g/dL (6.4-8.2); Troponin I 0.044 ng/mL (0.000-0.040)
[2021-06-30 14:05] LABS: Source, Urine Clean Catch
[2021-06-30 14:08] LABS: Appearance, Urine Hazy (Clear); Bilirubin, Urine Neg (Neg); Blood, Urine Neg (Neg); Color, Urine Yellow (P-Yellow); Glucose Qualitative, Urine Neg (Neg); Ketones, Urine Neg (Neg); Leukocyte Esterase, Urine Neg (Neg); Nitrite, Urine Neg (Neg); Protein, Urine Neg (Neg); Specific Gravity, Urine 1.015 (1.003-1.022); Urobilinogen, Urine NORM (Normal)
[2021-06-30 14:26] LABS: Red Blood Cells, Urine 0-2 /hpf (0-2); White Blood Cells, Urine 0-2 /hpf (0-5)
[2021-06-30 14:27] LABS: Bacteria Rare /hpf; Mucus Mod (0-Heavy); Squamous Epithelial Cells Rare /hpf (Few)
--- NOTE | 2021-06-30 19:32 | NUR ---
Admitted to the floor at 1700 to room 329. at the bedside. Non-verbal and unable to give history.Alert and follow minimal . Admitted with ishemic stroke and has history of multiple stroke per . No s/s of discomfort noted. left sided weakness noted. Good lower extremity strength noted. Blood sugar was 79 , no insulin given. vital signs are stable . continue to monitor.
[2021-07-01 04:31] LABS: BASOPHILS ABSOLUTE AUTO 0.06 K/mm3 (0.00-0.23); BASOPHILS PERCENT AUTO 1 % (0-2); EOSINOPHILS PERCENT AUTO 3 % (0-6); Hematocrit 35.9 % (37.0-53.0); Hemoglobin 11.7 g/dL (13.5-17.5); IMMATURE GRAN ABSOLUTE AUTO 0.03 K/mm3 (0.00-0.10); IMMATURE GRAN PERCENT AUTO 0 % (0-1); LYMPHOCYTES ABSOLUTE AUTO 1.84 K/mm3 (0.84-5.20); LYMPHOCYTES PERCENT AUTO 23 % (21-46); MONOCYTES ABSOLUTE AUTO 0.69 K/mm3 (0.16-1.47); MONOCYTES PERCENT AUTO 9 % (4-13); Mean Corpuscular HGB 30.2 pg (26.0-34.0); Mean Corpuscular HGB Conc 32.6 g/dL (31.5-36.5); Mean Corpuscular Volume 93 fL (80-100); Mean Platelet Volume 11.1 fL (9.1-12.4); NEUTROPHILS ABSOLUTE AUTO 5.06 K/mm3 (1.96-9.15); NEUTROPHILS PERCENT AUTO 64 % (41-73); Platelet Count 190 K/mm3 (150-400); RDW Coefficient Variation 13.4 % (11.7-14.2); RDW Standard Deviation 46.1 fL (35.1-46.3); Red Blood Cell Count 3.88 M/mm3 (4.30-5.90); White Blood Cell Count 7.88 K/mm3 (4.00-11.30)
[2021-07-01 04:55] LABS: Alanine Aminotransfer (ALT/SGP 45 U/L (12-78); Albumin, Blood 3.1 g/dL (3.4-5.0); Albumin/Globulin Ratio 0.9 (0.8-1.8); Alk Phos 125 U/L (50-136); Anion Gap 6 mmol/L (6-16); Aspartate Aminotrans (AST/SGOT 43 U/L (12-37); Bilirubin, Total 0.7 mg/dL (0.1-1.0); Blood Urea Nitrogen 17 mg/dL (8-24); CO2, Blood 25 mmol/L (21-32); Calcium, Blood 9.1 mg/dL (8.5-10.1); Chloride, Blood 110 mmol/L (98-108); Creatinine, Blood 0.89 mg/dL (0.60-1.20); Globulin, Blood 3.5 g/dL (2.2-4.0); Glomerular Filtration Rate >60 (60-); Glucose, Blood 93 mg/dL (70-99); Potassium, Blood 3.6 mmol/L (3.5-5.5); Sodium, Blood 141 mmol/L (136-145); Total Protein, Blood 6.6 g/dL (6.4-8.2); Troponin I 0.034 ng/mL (0.000-0.040)
--- NOTE | 2021-07-01 06:47 | NUR ---
SHIFT SUMMARRY PATIENT SLEPT MOST OF THE NIGHT. PATIENT REMAIN STABLE WITH NO ACUTE MEDICAL CHANGES THIS SHIFT. PATIENT PULLED IV WITH MINIMAL BLEEDING NOTED. NEW IV INSERTED WITH NO ISSUES. PATIENT DENIES PAIN AND DISCOMFORT.
--- NOTE | 2021-07-01 19:40 | NUR ---
Alert and non-verbal , unable to make needs known. One person assist with ADLS. Blood glucose under 150 , no insulin required by order. SBP in 90s, no s/s of hypotensive noted. had one episode of emesis per but stated that he ate too much and fast. Denies any nausea , dizziness and headache. Continue to monitor.
--- NOTE | 2021-07-02 04:16 | NUR ---
END OF SHIFT REPORT PATIENT WAS CALM ALL THROUGH THE SHIFT. NO EVENTS OVER THE NIGHT. WILL CONTINUE TO MONITOR.
--- NOTE | 2021-07-02 18:14 | NUR ---
Alert and oriented x1 , unable to make needs known . worked with PT/OT for strength and endurance , walked with walker and SBA within the room and to the dooor. Good strength. continue on puree diet and one-to-one feeding, aware. Insulin coverage was given . vital signs are stable. Discharge home in stable condition and home health recommended for strength and endurance. DC instruction given to and understood instruction.
== END 2021-07-02 18:35 | disposition home health service (06) | DRG 65 ==
LOC: ER 11:52 → MEDS 14:11
PROVIDERS: Emergency Medicine; ADMIT Hospitalist
DX: I63.513 Cerebral infarction due to unspecified occlusion or stenosis of bilateral middle cerebral arteries (principal); I69.354 Hemiplegia and hemiparesis following cerebral infarction affecting left non-dominant side; I50.32 Chronic diastolic (congestive) heart failure; E44.1 Mild protein-calorie malnutrition; I63.531 Cerebral infarction due to unspecified occlusion or stenosis of right posterior cerebral artery; R47.01 Aphasia; R79.89 Other specified abnormal findings of blood chemistry; I11.0 Hypertensive heart disease with heart failure; J44.9 Chronic obstructive pulmonary disease, unspecified; I48.91 Unspecified atrial fibrillation; F01.50 Vascular dementia, unspecified severity, without behavioral disturbance, psychotic disturbance, mood disturbance, and anxiety; E11.9 Type 2 diabetes mellitus without complications; I25.10 Atherosclerotic heart disease of native coronary artery without angina pectoris; N40.0 Benign prostatic hyperplasia without lower urinary tract symptoms; E78.5 Hyperlipidemia, unspecified; F17.210 Nicotine dependence, cigarettes, uncomplicated; I25.2 Old myocardial infarction; Z66 Do not resuscitate; Z95.5 Presence of coronary angioplasty implant and graft; Z68.25 Body mass index [BMI] 25.0-25.9, adult; Z95.0 Presence of cardiac pacemaker; Z88.1 Allergy status to other antibiotic agents; Z79.899 Other long term (current) drug therapy; Z79.02 Long term (current) use of antithrombotics/antiplatelets; Z79.82 Long term (current) use of aspirin; Z79.4 Long term (current) use of insulin
CPT/HCPCS: 36415; 51701; 70450; 71045; 80053; 81001; 82947; 83880; 84443; 84484; 85025; 85610; 85730; 92610; 93005; 93010; 94762; 97110; 97116; 97162; 97166; 97530; 99285-25; A9270; J1815

== ENCOUNTER 2021-08-14 16:39 | Emergency (ER) | payer MEDICARE, OTHER ==
[~2021-08-14] VITALS: Ht 170.2 cm; Wt 69.8 kg
[~2021-08-14 16:39] MED LIST changes: +BASAGLAR K100 UNIT/1 SC; +POTASSIUM PO
[2021-08-14 17:20] LABS: BASOPHILS ABSOLUTE AUTO 0.07 K/mm3 (0.00-0.23); BASOPHILS PERCENT AUTO 1 % (0-2); EOSINOPHILS ABSOLUTE AUTO 0.03 K/mm3 (0.00-0.68); EOSINOPHILS PERCENT AUTO 0 % (0-6); Hematocrit 37.2 % (37.0-53.0); Hemoglobin 12.7 g/dL (13.5-17.5); IMMATURE GRAN ABSOLUTE AUTO 0.05 K/mm3 (0.00-0.10); IMMATURE GRAN PERCENT AUTO 1 % (0-1); LYMPHOCYTES ABSOLUTE AUTO 0.91 K/mm3 (0.84-5.20); LYMPHOCYTES PERCENT AUTO 10 % (21-46); MONOCYTES ABSOLUTE AUTO 0.62 K/mm3 (0.16-1.47); MONOCYTES PERCENT AUTO 7 % (4-13); Mean Corpuscular HGB 30.1 pg (26.0-34.0); Mean Corpuscular HGB Conc 34.1 g/dL (31.5-36.5); Mean Corpuscular Volume 88 fL (80-100); Mean Platelet Volume 10.1 fL (9.1-12.4); NEUTROPHILS ABSOLUTE AUTO 7.42 K/mm3 (1.96-9.15); NEUTROPHILS PERCENT AUTO 82 % (41-73); Platelet Count 273 K/mm3 (150-400); RDW Coefficient Variation 13.5 % (11.7-14.2); RDW Standard Deviation 43.8 fL (35.1-46.3); Red Blood Cell Count 4.22 M/mm3 (4.30-5.90)
[2021-08-14 17:39] LABS: Alanine Aminotransfer (ALT/SGP 91 U/L (12-78); Albumin, Blood 3.7 g/dL (3.4-5.0); Albumin/Globulin Ratio 0.9 (0.8-1.8); Alk Phos 176 U/L (50-136); Anion Gap 7 mmol/L (6-16); Aspartate Aminotrans (AST/SGOT 92 U/L (12-37); Bilirubin, Total 0.6 mg/dL (0.1-1.0); Blood Urea Nitrogen 7 mg/dL (8-24); Bun/Creatinine Ratio 10.8 (12.0-20.0); CO2, Blood 25 mmol/L (21-32); Calcium, Blood 9.1 mg/dL (8.5-10.1); Chloride, Blood 94 mmol/L (98-108); Creatinine, Blood 0.65 mg/dL (0.60-1.20); Glomerular Filtration Rate >60 (60-); Glucose, Blood 157 mg/dL (70-99); Potassium, Blood 4.1 mmol/L (3.5-5.5); Sodium, Blood 126 mmol/L (136-145); Total Protein, Blood 7.7 g/dL (6.4-8.2)
[2021-08-14 20:32] LABS: International Normalized Ratio 1.03; Prothrombin Time Results 10.8 Sec (9.7-11.5)
[2021-08-14] MEDS ORDERED: TAMSULOSIN HCL0.4 M1 PO (20:35)
== END 2021-08-15 03:33 | disposition home or self-care (01) ==
LOC: ER 16:39
PROVIDERS: Physician Assistant
DX: R41.82 Altered mental status, unspecified (principal); E87.1 Hypo-osmolality and hyponatremia; Z88.1 Allergy status to other antibiotic agents; Z79.899 Other long term (current) drug therapy; Z79.4 Long term (current) use of insulin; I11.0 Hypertensive heart disease with heart failure; I50.9 Heart failure, unspecified; I48.91 Unspecified atrial fibrillation; J44.9 Chronic obstructive pulmonary disease, unspecified; I25.2 Old myocardial infarction; E11.9 Type 2 diabetes mellitus without complications; Z86.73 Personal history of transient ischemic attack (TIA), and cerebral infarction without residual deficits; Z87.891 Personal history of nicotine dependence
CPT/HCPCS: 36415; 70450; 80053; 82947; 85025; 85610; 93005; 93010; 96360; 96361; 99285-25; A9270; J7030

== ENCOUNTER 2021-09-22 19:36 | Emergency (ER) | payer MEDICARE, OTHER ==
[~2021-09-22] VITALS: Ht 165.1 cm; Wt 68.0 kg
[~2021-09-22 19:36] MED LIST changes: +TAMSULOSIN HCL0.4 M1 PO
[2021-09-22 20:14] LABS: Source, Urine Catheter
[2021-09-22 20:15] LABS: BASOPHILS ABSOLUTE AUTO 0.07 K/mm3 (0.00-0.23); BASOPHILS PERCENT AUTO 1 % (0-2); EOSINOPHILS ABSOLUTE AUTO 0.36 K/mm3 (0.00-0.68); EOSINOPHILS PERCENT AUTO 4 % (0-6); Hematocrit 40.2 % (37.0-53.0); Hemoglobin 13.5 g/dL (13.5-17.5); IMMATURE GRAN ABSOLUTE AUTO 0.05 K/mm3 (0.00-0.10); IMMATURE GRAN PERCENT AUTO 1 % (0-1); LYMPHOCYTES ABSOLUTE AUTO 1.29 K/mm3 (0.84-5.20); LYMPHOCYTES PERCENT AUTO 15 % (21-46); MONOCYTES ABSOLUTE AUTO 0.55 K/mm3 (0.16-1.47); MONOCYTES PERCENT AUTO 6 % (4-13); Mean Corpuscular HGB 29.3 pg (26.0-34.0); Mean Corpuscular HGB Conc 33.6 g/dL (31.5-36.5); Mean Corpuscular Volume 87 fL (80-100); Mean Platelet Volume 10.8 fL (9.1-12.4); NEUTROPHILS ABSOLUTE AUTO 6.25 K/mm3 (1.96-9.15); NEUTROPHILS PERCENT AUTO 73 % (41-73); Platelet Count 224 K/mm3 (150-400); RDW Coefficient Variation 14.2 % (11.7-14.2); RDW Standard Deviation 45.8 fL (35.1-46.3); White Blood Cell Count 8.57 K/mm3 (4.00-11.30)
[2021-09-22 20:27] LABS: Bilirubin, Urine Neg (Neg); Blood, Urine Neg (Neg); Glucose Qualitative, Urine Neg (Neg); Ketones, Urine 1+ (Neg); Leukocyte Esterase, Urine Neg (Neg); Nitrite, Urine Neg (Neg); Protein, Urine Neg (Neg); Urobilinogen, Urine NORM (Normal)
[2021-09-22 20:41] LABS: Appearance, Urine Clear (Clear); Color, Urine Pale Yellow (P-Yellow)
[2021-09-22 20:43] LABS: Anion Gap 9 mmol/L (6-16); Blood Urea Nitrogen 6 mg/dL (8-24); Bun/Creatinine Ratio 11.4 (12.0-20.0); CO2, Blood 30 mmol/L (21-32); Calcium, Blood 9.3 mg/dL (8.5-10.1); Chloride, Blood 95 mmol/L (98-108); Creatinine, Blood 0.53 mg/dL (0.60-1.20); Glomerular Filtration Rate >60 (60-); Glucose, Blood 153 mg/dL (70-99); Magnesium, Blood 1.4 mg/dL (1.6-2.4); Potassium, Blood 4.2 mmol/L (3.5-5.5); Sodium, Blood 134 mmol/L (136-145); Troponin I <0.015 ng/mL (0.000-0.040)
[2021-09-22] MEDS ORDERED: KEPPRA250 MG PO (23:36)
== END 2021-09-23 00:54 | disposition home or self-care (01) ==
LOC: ER 19:36
PROVIDERS: Student in an Organized Health Care Education/Training Program
DX: R56.9 Unspecified convulsions (principal); R41.0 Disorientation, unspecified; R32 Unspecified urinary incontinence; R05.9 Cough, unspecified; R11.10 Vomiting, unspecified; J44.9 Chronic obstructive pulmonary disease, unspecified; I11.0 Hypertensive heart disease with heart failure; I50.9 Heart failure, unspecified; I48.91 Unspecified atrial fibrillation; I25.2 Old myocardial infarction; E11.9 Type 2 diabetes mellitus without complications; Z86.73 Personal history of transient ischemic attack (TIA), and cerebral infarction without residual deficits; Z87.891 Personal history of nicotine dependence; Z88.1 Allergy status to other antibiotic agents; Z79.4 Long term (current) use of insulin; Z79.899 Other long term (current) drug therapy
CPT/HCPCS: 36415; 70450; 71045; 80048; 81003; 83735; 84484; 85025; 93005; 93010; 96365; 96366; 96375; 99285-25; J1953; J3475

== ENCOUNTER 2021-11-16 20:25 | Inpatient (IN) | payer MEDICARE, OTHER ==
[~2021-11-16] VITALS: Ht 175.3 cm; Wt 62.4 kg
[~2021-11-16 20:25] MED LIST changes: +Biotin PO; -Biotin SL; +KEPPRA250 MG PO
[2021-11-16] MEDS ORDERED: ASPI81CH PO (20:46)
[2021-11-16] MEDS ORDERED: AMLO5 PO (20:47)
[2021-11-16] MEDS ORDERED: BUDESONIDE0.5 MG/2 M INH (20:47)
[2021-11-16] MEDS ORDERED: KEPPRA250 M1 PO (21:13)
[2021-11-16 21:35] LABS: Anion Gap 7 mmol/L (6-16); Blood Urea Nitrogen 9 mg/dL (8-24); Bun/Creatinine Ratio 13.8 (12.0-20.0); CO2, Blood 24 mmol/L (21-32); Calcium, Blood 8.2 mg/dL (8.5-10.1); Chloride, Blood 96 mmol/L (98-108); Creatinine, Blood 0.65 mg/dL (0.60-1.20); Glomerular Filtration Rate >60 (60-); Glucose, Blood 138 mg/dL (70-99); Potassium, Blood 4.1 mmol/L (3.5-5.5); Sodium, Blood 127 mmol/L (136-145)
[2021-11-16 21:49] LABS: BASOPHILS PERCENT AUTO 1 % (0-2); EOSINOPHILS ABSOLUTE AUTO 0.21 K/mm3 (0.00-0.68); EOSINOPHILS PERCENT AUTO 1 % (0-6); Hematocrit 34.8 % (37.0-53.0); Hemoglobin 11.6 g/dL (13.5-17.5); IMMATURE GRAN ABSOLUTE AUTO 0.11 K/mm3 (0.00-0.10); IMMATURE GRAN PERCENT AUTO 1 % (0-1); LYMPHOCYTES ABSOLUTE AUTO 1.44 K/mm3 (0.84-5.20); LYMPHOCYTES PERCENT AUTO 8 % (21-46); MONOCYTES ABSOLUTE AUTO 1.15 K/mm3 (0.16-1.47); MONOCYTES PERCENT AUTO 6 % (4-13); Mean Corpuscular HGB 29.1 pg (26.0-34.0); Mean Corpuscular HGB Conc 33.3 g/dL (31.5-36.5); Mean Corpuscular Volume 87 fL (80-100); Mean Platelet Volume 10.7 fL (9.1-12.4); NEUTROPHILS ABSOLUTE AUTO 15.52 K/mm3 (1.96-9.15); NEUTROPHILS PERCENT AUTO 84 % (41-73); Platelet Count 264 K/mm3 (150-400); RDW Coefficient Variation 14.7 % (11.7-14.2); RDW Standard Deviation 47.9 fL (35.1-46.3); Red Blood Cell Count 3.98 M/mm3 (4.30-5.90); White Blood Cell Count 18.53 K/mm3 (4.00-11.30)
[2021-11-16 22:19] LABS: Influenza A, PCR NEGATIVE (NEGATIVE); Influenza B, PCR NEGATIVE (NEGATIVE); Resp Syncytial Virus, PCR NEGATIVE (NEGATIVE); SARS-Cov-2 (COVID-19) PCR, MMC NEGATIVE (NEGATIVE)
[2021-11-17] MEDS ORDERED: SERT50 PO (04:00)
[2021-11-17] MEDS ORDERED: SYMBICORT 160-4.6 GM INH (04:03)
[2021-11-17] MEDS ORDERED: IPRAT-ALBUT 0.5-3 ML INH (04:05)
[2021-11-17] MEDS ORDERED: TAMS.4ER PO (04:06)
[2021-11-17] MEDS ORDERED: TIOT18 INH (04:06)
[2021-11-17] MEDS ORDERED: QUET25 PO (04:07)
[2021-11-17] MEDS ORDERED: FURO40 PO (04:09)
[2021-11-17] MEDS ORDERED: Prinivil10 MG PO (04:11)
[2021-11-17] MEDS ORDERED: METO25 PO (04:14)
[2021-11-17] MEDS ORDERED: BASAGLAR K100 UNIT/1 SC (04:19)
[2021-11-17] MEDS ORDERED: SODCHL1 PO (04:20)
[2021-11-17] MEDS ORDERED: SULFAMETHOXAZO1 EAC1 PO (04:21)
[2021-11-17 04:55] LABS: International Normalized Ratio 1.04; Prothrombin Time Results 10.9 Sec (9.7-11.5)
[2021-11-17 06:12] LABS: Hematocrit 34.7 % (37.0-53.0); Hemoglobin 11.5 g/dL (13.5-17.5); Mean Corpuscular HGB Conc 33.1 g/dL (31.5-36.5); Mean Corpuscular Volume 88 fL (80-100); Mean Platelet Volume 10.7 fL (9.1-12.4); Platelet Count 237 K/mm3 (150-400); RDW Coefficient Variation 14.7 % (11.7-14.2); RDW Standard Deviation 47.9 fL (35.1-46.3); Red Blood Cell Count 3.96 M/mm3 (4.30-5.90); White Blood Cell Count 11.18 K/mm3 (4.00-11.30)
[2021-11-17 06:49] LABS: Anion Gap 7 mmol/L (6-16); Blood Urea Nitrogen 10 mg/dL (8-24); Bun/Creatinine Ratio 13.9 (12.0-20.0); CO2, Blood 23 mmol/L (21-32); Calcium, Blood 7.9 mg/dL (8.5-10.1); Chloride, Blood 97 mmol/L (98-108); Creatinine, Blood 0.72 mg/dL (0.60-1.20); Glomerular Filtration Rate >60 (60-); Glucose, Blood 93 mg/dL (70-99); Potassium, Blood 4.6 mmol/L (3.5-5.5); Sodium, Blood 127 mmol/L (136-145)
--- NOTE | 2021-11-17 07:47 | NUR ---
SHIFT SUMMARY RECIEVED REPORT FROM YAMILET RN, ED. ARRIVED VIA GURNEY TO MEDICAL FLOOR; LIFT ASSISTANCE REQUIRED. ACCOMPANIED; MED RECONCILIATION COMPLETED PRIOR TO HER LEAVING. ALERT TO SELF; AROUSES TO MOVEMENT. WILL ANSWER SIMPLE QUESTIONS WITH YES ANSWERS. ON 3L O2 VIA NC. HEPARIN INFUSING @ 15 U/KG/HR PER PHARMACY DOSING. NEW IV PLACED TO RFA; IV ABX INITIATED AFTERWARDS. HAS BEEN MOSTLY SLEEPING SINCE ARRIVAL. CARDIOLOGY CONSULT PLACED BY REFINERY OPERATOR COKING. NO ACUTE CHANGES NOTED SINCE ARRIVAL. BED IN LOWEST POSITION; ALARM ON. CALL LIGHT WITHIN REACH. REPORT GIVEN TO ONCOMING RN.
--- NOTE | 2021-11-17 13:07 | NUR ---
Echocardiogram completed.
--- NOTE | 2021-11-17 16:58 | NUR ---
DAY SHIFT SUMMARY 71 YR OLD MALE, PREVIOUSLY HAD 6 STROKES, LAST OF WHICH WAS IN JUN WITH SEIZURES. PT CURRENTLY ON 3L O2 WITH NC. PT HAS NOT BEEN AWAKE ENOUGHT THROUGHOUT THE DAY TO TAKE ANY MEDS OR FOOD BY MOUTH. CRITICAL LAB OF 249 TROPONIN CALLED IN TO AT 0950 THIS MORNING, TROPONIN HAS IMPROVED FROM LAST CHECK OF 293. PT HAS A WET COUGH THAT IS PRODUCTIVE. SUCTION ON IN ROOM. ORAL CARE ORDERED 3X DAY WITH SUCTION. CALL LIGHT IS WITHIN REACH, PT UNABLE TO CALL APPROPRIATELY, PT IS CONFUSED AND NOT ALWAYS ABLE TO COMMUNICATE. FREQUENT ROUNDING ON PT.
--- NOTE | 2021-11-17 18:07 | NUR ---
CRITICAL CBG CBG OF 42, DR SNEED NOTIFIED. ENTERING ORDERES FOR FLUIDS
--- NOTE | 2021-11-18 00:22 | NUR ---
HYPOGLYCEMIA BLOOD GLUCOSE AT 1999 UP TO 110. PT MORE ALERT. ABLE TO TAKE MEDICATIONS. AND ATE SEVERAL BITES OF APPLESAUCE. AT 0000 CHECK PT DOWN TO 55. PT MORE LETHARGIC AND DIAPHORETIC. 1 AMP OF D50 GIVEN PER ORDERS. DR. LUZ NOTIFIED WITH NEW ORDERS FOR D5 1/2 NS @ 100 ML/HR. INFUSION STARTED.
--- NOTE | 2021-11-18 00:52 | NUR ---
PT'S BLOOD GLUCOSE INCREASED TO 192 AFTER DOSE OF D50.
--- NOTE | 2021-11-18 04:20 | NUR ---
SHIFT SUMMARY PT SLEPT MUCH OF THIS EVENING. MORE ALERT EARLY IN THE EVENING. WAS YELLING OUT, "HONEY?". SWALLOWED PILLS WELL IN APPLESAUCE. CBG DROPPED DOWN TO 55. SEE PREVIOUS NOTE. UP TO 192 WITH LAST CHECK. PT IS A/O X 1. IS NOT ABLE TO ANSWER QUESTIONS. SPEAKS IN ONE WORD SENTENCES. USUALLY PROFANITY. RESISTS CARE AT TIMES. HAS NOT ATTEMPTED TO GET OOB BUT BED ALARM HAS BEEN ON THROUGHOUT THE SHIFT FOR SAFETY. PT SLIGHTLY HYPOTENSIVE BUT ASYMPTOMATIC AND OTHERWISE VITAL SIGNS STABLE.
[2021-11-18 07:08] LABS: Albumin, Blood 2.9 g/dL (3.4-5.0); Anion Gap 6 mmol/L (6-16); Blood Urea Nitrogen 8 mg/dL (8-24); Bun/Creatinine Ratio 11.7 (12.0-20.0); CO2, Blood 26 mmol/L (21-32); Calcium, Blood 7.8 mg/dL (8.5-10.1); Chloride, Blood 99 mmol/L (98-108); Creatinine, Blood 0.69 mg/dL (0.60-1.20); Glomerular Filtration Rate >60 (60-); Glucose, Blood 108 mg/dL (70-99); Phosphorus, Blood 1.6 mg/dL (2.5-4.9); Potassium, Blood 3.7 mmol/L (3.5-5.5); Sodium, Blood 131 mmol/L (136-145)
--- NOTE | 2021-11-18 18:20 | NUR ---
DAY SHIFT SUMMARY 89 YR OLD MALE PT ADMITTED WITH SEVERE SEPSIS. PT SLEPT MOST OF THE MORNING, UNABLE TO WAKE ENOUGH TO SAFELY TAKE HIS MORNING MEDS. WHEN THE PT AWOKE AROUND LUNCH HE BEGAN TO CALL OUT INTO THE [facility] FOR HIS , MANY TIMES HE WAS REORIENTED TO THE FACT HE IS IN THE HOSPITAL, AT WHICH TIME HE WOULD SAY OK AND LAY BACK DOWN BUT THEN SIT BACK UP AND CALL FOR HIS AGAIN. PT'S WAS CALLED ON PT'S PHONE SO HE COULD SPEAK WITH HER. PT'S LATER CAME BY TO VISIT, SHE WAS ABLE TO TALK TO HIM SO HE COULD TAKE HIS AFTERNOON MEDS. AFTER LUNCH AND VISIT FROM PT WENT BACK TO SLEEP. PT DOES NOT EAT MORE THAN A FEW BITES OF MEALS. CBG ELEVATED TO 160 AT 1800, DID NOT GIVE INSULIN COVERAGE PT HAS BEEN EXPERIENCING LOW CBGS AND NOT IS NOT EATING HIS DINNER. CALL LIGHT IS WITHIN REACH, PT CONFUSED AND NOT ABLE TO CALL APPROPRIATELY, FREQUENT ROUNDING.
--- NOTE | 2021-11-19 04:27 | NUR ---
SHIFT SUMMARY NO ACUTE CHANGES. PT REMAINS CONFUSED. BECOMES AGITATED AT TIMES WITH CARE BUT HAS BEEN VERY COOPERATIVE THIS EVENING. TOOK HIS MEDICATIONS WELL. HYPOTENSIVE, ASYMPTOMATIC AND HAS BEEN PT'S TREND. CBG'S STABLE THIS EVENING. 10/07 NS CONTINUES TO INFUSE. VITAL SIGNS STABLE. WILL CONTINUE TO MONITOR.
--- NOTE | 2021-11-19 17:17 | NUR ---
SHIFT SUMMARY PT RESTING QUIETLY AT START OF SHIFT. WOKE EASILY FOR CARE AND REMAINED CALM FIRST PART OF THE MORNING. PT EATING AND DRINKING WELL. TOOK MEDICATIONS WHOLE IN APPLESAUCE W/O DIFFICULTY. DR Naisl IN TO SEE PT THIS AM. PT PLACED ON RA WITH BIOX AT 97-98%. PT TO D/C TO HOME TOMORROW. PT REMAINED AWAKE AFTER BREAKFAST AND HAS BEEN YELLING FOR HIS EVER SINCE. PT HAS CONTINUED TO SCREAM AND CURSE CONSTANTLY FOR HOURS. THIS AFTERNOON, PT HAS ALSO BEEN GETTING OUT OF BED SCREAMING AND SETTING OFF BED ALARM REPEATEDLY. PT UNCO-OP WITH STAFF AND CURSING AT US CONSTANTLY, DISTURBING OTHER PT'S WELL. DR Nails NOTIFIED FOR ORDERS FOR VEST RETRAINT FOR SAFETY. SEROQUEL GIVEN PER EMAR, BUT HAS BEEN IN-EFFECTIVE TO PRESENT. BED ALARM REMAINS ON FOR SAFETY. CALL LT IN REACH.
--- NOTE | 2021-11-19 18:56 | NUR ---
RECEIVED PATIENT TO ROOM 348 FROM ROOM 330 VIA BED ASLEEP IN [facility]. RECEIVED REPORT FROM JOSH BUENROSTRO AND WILL RELAY TO ONCOMING NURSE. CALL PLACED TO REMOTE MONITORING TO ACTIVATE CAMERA.
--- NOTE | 2021-11-20 04:53 | NUR ---
SHIFT SUMMARY OPENS EYES TO VERBAL STIMULI. UNABLE TO RESPOND APPROPRIATE TO ORIENTATION QUESTIONS OR FOLLOW DIRECTIONS. MUMMBLES & OCCASIONALLY WILL STATE 1 WORD ANSWERS "YES" "FUCK" OR "OKAY". DENIES PAIN, N/V OR SOB & NO S/SX NOTED. HAS BEEN PLEASENTLY CONFUSED, NOT COMBATIVE OR AGRESSIVE THIS SHIFT. SLEPT SOUNDLY T/O NIGHT. VSS. SPO2 >90% ON RA. LS HAVE SCATTERED INSP/EXP WHEEZES. PT IS A POSSIBLE DC HOME c [place] TODAY. CALL LIGHT & BED ALARM IN PLACE. WCTM.
[2021-11-20 05:53] LABS: Anion Gap 5 mmol/L (6-16); Blood Urea Nitrogen 7 mg/dL (8-24); Bun/Creatinine Ratio 12.7 (12.0-20.0); CO2, Blood 27 mmol/L (21-32); Calcium, Blood 8.7 mg/dL (8.5-10.1); Chloride, Blood 98 mmol/L (98-108); Creatinine, Blood 0.55 mg/dL (0.60-1.20); Glomerular Filtration Rate >60 (60-); Glucose, Blood 97 mg/dL (70-99); Phosphorus, Blood 2.2 mg/dL (2.5-4.9); Sodium, Blood 130 mmol/L (136-145)
[2021-11-20] MEDS ORDERED: FURO20 PO (13:22)
--- NOTE | 2021-11-20 14:02 | NUR ---
Met pt. in bed resting his nurse in the room attending to his needs prayed for pt.
--- NOTE | 2021-11-20 15:18 | NUR ---
PT DISCHARGED HOME WITH [facility] AT 13:15. ALL DISCHARGE INFO GONE OVER, MEDICATIONS CLARIFIED WITH PHARAMCIST.
== END 2021-11-20 13:49 | disposition home health service (06) | DRG 871 ==
LOC: ER 20:25 → MEDS 11-17 03:29
PROVIDERS: Family Medicine; Student in an Organized Health Care Education/Training Program; ADMIT Family Medicine
DX: A41.9 Sepsis, unspecified organism (principal); J18.9 Pneumonia, unspecified organism; J96.01 Acute respiratory failure with hypoxia; I50.21 Acute systolic (congestive) heart failure; I48.20 Chronic atrial fibrillation, unspecified; E87.1 Hypo-osmolality and hyponatremia; I24.8 Other forms of acute ischemic heart disease; Z51.5 Encounter for palliative care; Z66 Do not resuscitate; Z20.822 Contact with and (suspected) exposure to COVID-19; Z53.29 Procedure and treatment not carried out because of patient's decision for other reasons; I11.0 Hypertensive heart disease with heart failure; R65.20 Severe sepsis without septic shock; G40.909 Epilepsy, unspecified, not intractable, without status epilepticus; J44.9 Chronic obstructive pulmonary disease, unspecified; I25.10 Atherosclerotic heart disease of native coronary artery without angina pectoris; I08.1 Rheumatic disorders of both mitral and tricuspid valves; F01.50 Vascular dementia, unspecified severity, without behavioral disturbance, psychotic disturbance, mood disturbance, and anxiety; E11.9 Type 2 diabetes mellitus without complications; D64.9 Anemia, unspecified; Z90.89 Acquired absence of other organs; Z98.890 Other specified postprocedural states; Z86.73 Personal history of transient ischemic attack (TIA), and cerebral infarction without residual deficits; Z95.5 Presence of coronary angioplasty implant and graft; Z95.0 Presence of cardiac pacemaker; I25.2 Old myocardial infarction; Z87.891 Personal history of nicotine dependence; Z88.1 Allergy status to other antibiotic agents; Z79.82 Long term (current) use of aspirin; Z79.899 Other long term (current) drug therapy
CPT/HCPCS: 0241U; 36415; 71045; 80048; 80069; 82947; 83605; 83880; 84145; 84484; 85025; 85027; 85520; 85610; 85730; 87040; 92526; 92610; 93005; 93010; 93306; 94640; 96374; 97161; 99285-25; A9270; J0456; J0696; J1644; J1650; J1940; J7042; J7050; J7799

== ENCOUNTER 2022-04-16 03:15 | Emergency (ER) | payer MEDICARE, OTHER ==
[~2022-04-16] VITALS: Ht 167.6 cm; Wt 65.8 kg
[~2022-04-16 03:15] MED LIST changes: +BUDESONIDE0.5 MG/2 M INH; +FURO20 PO; +IPRAT-ALBUT 0.5-3 ML INH; +KEPPRA250 M1 PO; +METO25 PO; +SERT50 PO; +SULFAMETHOXAZO1 EAC1 PO; +SYMBICORT 160-4.6 GM INH; +Vibramycin100 MG PO
[2022-04-16 04:58] LABS: BASOPHILS PERCENT AUTO 1 % (0-2); EOSINOPHILS ABSOLUTE AUTO 0.28 K/mm3 (0.00-0.68); EOSINOPHILS PERCENT AUTO 3 % (0-6); Hematocrit 35.4 % (37.0-53.0); IMMATURE GRAN ABSOLUTE AUTO 0.06 K/mm3 (0.00-0.10); IMMATURE GRAN PERCENT AUTO 1 % (0-1); LYMPHOCYTES ABSOLUTE AUTO 1.05 K/mm3 (0.84-5.20); LYMPHOCYTES PERCENT AUTO 10 % (21-46); MONOCYTES ABSOLUTE AUTO 0.75 K/mm3 (0.16-1.47); MONOCYTES PERCENT AUTO 7 % (4-13); Mean Corpuscular HGB 29.3 pg (26.0-34.0); Mean Corpuscular HGB Conc 33.9 g/dL (31.5-36.5); Mean Corpuscular Volume 86 fL (80-100); Mean Platelet Volume 10.3 fL (9.1-12.4); NEUTROPHILS PERCENT AUTO 79 % (41-73); Platelet Count 260 K/mm3 (150-400); RDW Coefficient Variation 12.8 % (11.7-14.2); RDW Standard Deviation 40.2 fL (35.1-46.3); White Blood Cell Count 10.74 K/mm3 (4.00-11.30)
[2022-04-16 05:14] LABS: Albumin, Blood 3.5 g/dL (3.4-5.0); Albumin/Globulin Ratio 1.1 (0.8-1.8); Bilirubin, Total 0.9 mg/dL (0.1-1.0); Bun/Creatinine Ratio 9.7 (12.0-20.0); Calcium, Blood 8.8 mg/dL (8.5-10.1); Creatinine, Blood 0.62 mg/dL (0.60-1.20); Globulin, Blood 3.3 g/dL (2.2-4.0); Potassium, Blood 3.9 mmol/L (3.5-5.5); Total Protein, Blood 6.8 g/dL (6.4-8.2)
== END 2022-04-16 08:37 | disposition home or self-care (01) ==
LOC: ER 03:15
PROVIDERS: Emergency Medicine
DX: R56.9 Unspecified convulsions (principal); I11.0 Hypertensive heart disease with heart failure; I50.9 Heart failure, unspecified; J44.9 Chronic obstructive pulmonary disease, unspecified; E11.9 Type 2 diabetes mellitus without complications; I25.2 Old myocardial infarction; Z86.73 Personal history of transient ischemic attack (TIA), and cerebral infarction without residual deficits; Z95.0 Presence of cardiac pacemaker; Z95.5 Presence of coronary angioplasty implant and graft; Z79.899 Other long term (current) drug therapy; Z79.82 Long term (current) use of aspirin; Z88.1 Allergy status to other antibiotic agents; Z79.02 Long term (current) use of antithrombotics/antiplatelets
CPT/HCPCS: 70450; 80053; 85025; 93005; 93010; 99285-25

== ENCOUNTER → 2022-09-02 | Outpatient (CLI) | payer MEDICARE, OTHER | LOC: LAB 14:00 → LAB SHORT 14:00 | DX: L08.9 Local infection of the skin and subcutaneous tissue, unspecified (principal) | CPT/HCPCS: 87070; 87205 ==

== ENCOUNTER → 2022-09-27 | Outpatient (CLI) | payer MEDICARE, OTHER ==
[2022-09-27 16:03] LABS: BASOPHILS ABSOLUTE AUTO 0.05 K/mm3 (0.00-0.23); BASOPHILS PERCENT AUTO 1 % (0-2); EOSINOPHILS ABSOLUTE AUTO 0.33 K/mm3 (0.00-0.68); EOSINOPHILS PERCENT AUTO 5 % (0-6); Hematocrit 37.2 % (37.0-53.0); Hemoglobin 12.3 g/dL (13.5-17.5); IMMATURE GRAN ABSOLUTE AUTO 0.03 K/mm3 (0.00-0.10); IMMATURE GRAN PERCENT AUTO 1 % (0-1); LYMPHOCYTES PERCENT AUTO 16 % (21-46); MONOCYTES ABSOLUTE AUTO 0.45 K/mm3 (0.16-1.47); MONOCYTES PERCENT AUTO 7 % (4-13); Mean Corpuscular HGB Conc 33.1 g/dL (31.5-36.5); Mean Corpuscular Volume 91 fL (80-100); Mean Platelet Volume 10.7 fL (9.1-12.4); NEUTROPHILS ABSOLUTE AUTO 4.25 K/mm3 (1.96-9.15); NEUTROPHILS PERCENT AUTO 70 % (41-73); Platelet Count 237 K/mm3 (150-400); RDW Coefficient Variation 15.2 % (11.7-14.2); RDW Standard Deviation 50.4 fL (35.1-46.3); White Blood Cell Count 6.11 K/mm3 (4.00-11.30)
[2022-09-27 16:12] LABS: Albumin, Blood 3.2 g/dL (3.4-5.0); Albumin/Globulin Ratio 0.9 (0.8-1.8); Bilirubin, Total 0.9 mg/dL (0.1-1.0); Calcium, Blood 8.3 mg/dL (8.5-10.1); Creatinine, Blood 0.83 mg/dL (0.60-1.20); Globulin, Blood 3.4 g/dL (2.2-4.0); Potassium, Blood 3.8 mmol/L (3.5-5.5); Total Protein, Blood 6.6 g/dL (6.4-8.2)
== END ==
LOC: LAB 15:57 → LAB SHORT 15:57
PROVIDERS: Physician Assistant Medical
DX: R05.9 Cough, unspecified (principal)
CPT/HCPCS: 80053; 85025

== ENCOUNTER 2022-10-10 00:23 | Inpatient (IN) | payer MEDICARE, OTHER ==
[~2022-10-10] VITALS: Ht 172.7 cm; Wt 57.1 kg
[2022-10-10 00:52] LABS: BASOPHILS ABSOLUTE AUTO 0.08 K/mm3 (0.00-0.23); BASOPHILS PERCENT AUTO 1 % (0-2); EOSINOPHILS PERCENT AUTO 4 % (0-6); IMMATURE GRAN ABSOLUTE AUTO 0.04 K/mm3 (0.00-0.10); IMMATURE GRAN PERCENT AUTO 1 % (0-1); LYMPHOCYTES ABSOLUTE AUTO 1.74 K/mm3 (0.84-5.20); LYMPHOCYTES PERCENT AUTO 22 % (21-46); MONOCYTES ABSOLUTE AUTO 0.62 K/mm3 (0.16-1.47); MONOCYTES PERCENT AUTO 8 % (4-13); Mean Corpuscular HGB 29.9 pg (26.0-34.0); Mean Corpuscular HGB Conc 33.3 g/dL (31.5-36.5); Mean Corpuscular Volume 90 fL (80-100); Mean Platelet Volume 11.3 fL (9.1-12.4); NEUTROPHILS ABSOLUTE AUTO 5.25 K/mm3 (1.96-9.15); NEUTROPHILS PERCENT AUTO 65 % (41-73); Platelet Count 210 K/mm3 (150-400); RDW Coefficient Variation 14.2 % (11.7-14.2); RDW Standard Deviation 47.2 fL (35.1-46.3); Red Blood Cell Count 4.02 M/mm3 (4.30-5.90); White Blood Cell Count 8.03 K/mm3 (4.00-11.30)
[2022-10-10 00:58] LABS: Bilirubin, Total 0.9 mg/dL (0.1-1.0); Bun/Creatinine Ratio 21.7 (12.0-20.0); Calcium, Blood 8.3 mg/dL (8.5-10.1); Creatinine, Blood 0.65 mg/dL (0.60-1.20); Globulin, Blood 3.1 g/dL (2.2-4.0); Potassium, Blood 3.7 mmol/L (3.5-5.5); Total Protein, Blood 6.1 g/dL (6.4-8.2)
[2022-10-10 00:59] LABS: International Normalized Ratio 1.12; Prothrombin Time Results 11.7 Sec (9.7-11.5)
[2022-10-10 01:49] LABS: Source, Urine Straight Cath
[2022-10-10 01:52] LABS: Bilirubin, Urine Neg (Neg); Blood, Urine Neg (Neg); Glucose Qualitative, Urine Neg (Neg); Ketones, Urine 1+ (Neg); Leukocyte Esterase, Urine Neg (Neg); Nitrite, Urine Neg (Neg); Protein, Urine Neg (Neg); Specific Gravity, Urine 1.015 (1.003-1.022); Urobilinogen, Urine 1+ (Normal); pH, Urine 6.5 (5.0-8.0)
[2022-10-10 01:55] LABS: Thyroid Stimulating Hormone 2.17 uIU/mL (0.360-4.800)
[2022-10-10 02:09] LABS: Appearance, Urine Clear (Clear); Color, Urine Yellow (P-Yellow)
[2022-10-10 06:47] LABS: CHOL/HDL RATIO 2.9; Cholesterol 102 mg/dL (50-200); HDL Cholesterol 35 mg/dL (>39); LDL/HDL RATIO 1.1; Low Density Lipoprotein Chol 40 mg/dL (0-110); Triglycerides 136 mg/dL (30-160); Very Low Density Lipoprot Chol 27 mg/dL (6-32)
--- NOTE | 2022-10-10 10:53 | NUR ---
PT ADMITTED TO ICU AT 1027 FROM ER FOR CVA. PT AWAKE, APPEARS CONFUSED, AND ANXIOUS. YELLS AND RESISTANT WITH CARE, POSSIBLY YELLING OUT THE F WORD. UNABLE TO PREFORM COMPLETE NEURO EXAM D/T THIS. PT WILL OPEN EYES BUT THEN SHUTS THEM TIGHTLY WHEN ATTEMPTING TO EXAM. PT CURLED UP IN POSITION W ARMS CROSSED ACROSS CHEST AND LEGS DRAWN UP AND CROSSED. PT CRYING AT TIMES. DOES NOT FOLLOW ANY COMMANDS. PT'S WHOM IS HIS PRIMARY NON PROFIT JOB TITLES IS NOT IN THE HOSPITAL AT THIS TIME. UNABLE TO PREFORM MRI D/T PACEMAKER. SPEECH MIGHT BE AVAILABLE TO PREFORM SWALLOW EVAL LATER THIS AFTERNOON, BUT UNTIL THEN PO WILL BE HELD FOR ASPIRATION RISK. PT HAS MILD HTN, PERMISSIVE HTN ORDERED. DR LEWIS CALLED AND GIVEN FULL UPDATE; SOME PO MEDS TO BE CHANGED TO IV, MRI CANCELLED. OPEN SMALL WOUND NOTED TO LEFT HIP, DRSG PLACED, PICTURE TAKEN.
--- NOTE | 2022-10-10 11:47 | NUR ---
DR LEWIS IN TO SEE PT.
[2022-10-10] MEDS ORDERED: PREG200 PO (12:14)
[2022-10-10] MEDS ORDERED: LEVE500 PO (12:15)
[2022-10-10] MEDS ORDERED: BENADRYL25 MG PO (12:17)
[2022-10-10] MEDS ORDERED: Triamcinolone A15 G4 TOP (12:20)
[2022-10-10] MEDS ORDERED: BASAGLAR K100 UNIT/1 SC (12:21)
--- NOTE | 2022-10-10 12:37 | NUR ---
PT'S TYSON AT BEDSIDE. MEDS UPDATED, HX COMPLETED. PT MORE CALM W AT BEDSIDE BUT STILL UNABLE TO FOLLOW COMMANDS.
--- NOTE | 2022-10-10 14:16 | NUR ---
PT PASSED SWALLOW EVAL W SPEECH. PO MEDS GIVEN WHOLE W WATER, ANTONIA WELL. APPEARS TO BE CONFUSED STILL, AND DOES NOT FOLLOW DIRECTIONS.
--- NOTE | 2022-10-10 19:26 | NUR ---
ASSUMED CARE OF PT AT 1900 PT SLEEPING IN BED AT THIS TIME. NO VISITORS AT THIS TIME. SPO2 @ 92% ON RA. BP STABLE AND PACED. HR 60'S. CONDOM CATH IN PLACE WITH MINIMAL YELLOW URINE IN CATH BAG. DAYSHIFT REPORTS APPROPRIATE AMOUNT OF URINE OUTPUT THROUGHOUT THE DAY. ATTENDS IN PLACE. SEE ASSESSMENT FOR FURTHER INFORMATION.
--- NOTE | 2022-10-10 20:37 | NUR ---
PT REFUSES TO TAKE MEDICATIONS AT THIS TIME.
[2022-10-11 03:55] LABS: Hematocrit 37.2 % (37.0-53.0); Hemoglobin 12.4 g/dL (13.5-17.5); Mean Corpuscular HGB 29.7 pg (26.0-34.0); Mean Corpuscular HGB Conc 33.3 g/dL (31.5-36.5); Mean Corpuscular Volume 89 fL (80-100); Platelet Count 215 K/mm3 (150-400); RDW Coefficient Variation 14.4 % (11.7-14.2); RDW Standard Deviation 46.2 fL (35.1-46.3); Red Blood Cell Count 4.18 M/mm3 (4.30-5.90); White Blood Cell Count 8.71 K/mm3 (4.00-11.30)
[2022-10-11 04:26] LABS: Bilirubin, Total 0.9 mg/dL (0.1-1.0); Bun/Creatinine Ratio 23.7 (12.0-20.0); Calcium, Blood 8.1 mg/dL (8.5-10.1); Creatinine, Blood 0.76 mg/dL (0.60-1.20); Globulin, Blood 3.1 g/dL (2.2-4.0); Potassium, Blood 3.3 mmol/L (3.5-5.5); Total Protein, Blood 6.1 g/dL (6.4-8.2)
--- NOTE | 2022-10-11 07:45 | NUR ---
ASSUMPTION OF CARE: PATIENT RESTING IN ROOM, NIGHT RN ENDORSED SHELBI HAS NOT SLEPT MOST OF THE NIGHT, ANXIOUS AT BASELINE. PATIENT IS CURRENLTY 100 AV PACED 60. RR 14, MINIMALLY HTN NO SIGN OF ACUTE RESPIRATORY OR CARDIAC DISTRESS, CONDOM CATH ON FROM PREVIOUS SHIFT, NIGHT RN ENDORSED VERY MINIMAL OUTPUT, WILL BLADDER SCAN ONCE PATIENT IS DUE FOR MEDS. PATIENT PLAN FOR HEAD CT WO CONTRAST. NIGHT RN ENDORSED VERY POOR ORAL INTAKE AND REFUSING MEDS, WILL SPEAK WITH HOSPITALIST FOR CHANGE TO IV FOR IMPORTANT MEDS. WILL CONTINUE TO MONITOR UNTIL SHIFT CHANGE.
--- NOTE | 2022-10-11 08:14 | NUR ---
PATIENT IN ROUTE TO IMAGING, X3 MONITORING IN PLACE, PATIENT USED VERY MINIMAL SOUNDS OF UNDERSTANDING, PATIENT SEEMED TO UNDERSTAND, WILL AWAIT RETURN. PATIENT ON RA, 95, HR 65 RR 16-18.
--- NOTE | 2022-10-11 16:19 | NUR ---
END OF SHIFT: PATIENT HAD AN INCREASE TO MAKE ABILLITY KNOWN, TO THE POINT HE IS NOW ON A [facility] SOFT DIET. PATIENT HAS BEEN ABLE TO TOLERATE SOME ORAL INTAKE FOR LUNCH. PATIENT HAS INFUSING DEX WITH 1/2NS AND 20 MEQ K+, DUE TO PATIETN BEING VERY LETHARGIC AND ONLY STAYING AWAKE FOR 30 SECONDS. PATIENT HAS 2 UNMEASURED VOIDS FOR THIS RN DURING THIS SHIFT. THE CONDOM CATH WAS REMOVED DUE TO TIGHTNESS. PATIENT DENIES ANY ACUTE PAIN. WAS AT THE BEDSIDE BRIEFLY AND WAS EDUCATED ON SITUATION. ENDORSES PATIENT BEING ABOUT 30%-35% OF BASELINE. RA SPO2 93 WHILE SLEEPING AND 96% WHILE AWAKE. KEPPRA WAS CHANGED TO IV DUE TO PATIENT CONDITION THIS AM. CT SHOWED NO REAL CHANGE FROM PREVIOUS, TO INCLUDE NO EVOLVING CVA. PATIENT HAS BEEN COOPERATIVE WITH MOST CARE. Q2 TURNS, ORAL CARE MUCH PATIENT WOULD LET THIS RN, WILL CONTINUE TO MONITOR UNTIL SHIFT CHANGE.
--- NOTE | 2022-10-11 19:46 | NUR ---
ASSUMED CARE OF PT AT 1900 PT SLEEPING IN ROOM. BP AND HR STABLE AND WNL. SPO2 >90% ON RA. LUNG SOUNDS CLEAR WITH DIMINISHED BASES. PT IS HARD OF HEARING AND MUMBLES IN RETURN. PT IS NOW SPEAKING IN HALF SENTENCES. SEE FULL ASSESSMENT FOR FURTHER INFORMATION.
--- NOTE | 2022-10-11 21:22 | NUR ---
PT OUT TO [facility] FLOOR AT 2109. REPORT GIVEN TO ASSIGNED RN FOR RM 362.
--- NOTE | 2022-10-11 21:34 | NUR ---
ICU RM 16 TRANSFER. REPORT TAKEN FROM MELYSSA RN. PATIENT ARRIVED ON ROOM AIR AND NO FLUIDS RUNNING. AXO X SELF AND BEDREST. PERSONAL BELONGINGS WITH PATIENTS. BED ALARM ACTIVATED WITH HX VASCULAR DEMENTIA. CALL LIGHT IN REACH.
--- NOTE | 2022-10-12 04:20 | NUR ---
SHIFT SUMMARY PATIENT HAD NO ACUTE CHANGES. ICU TRANSFER. ALERT TO SELF, E[place], AND SPEECH IS MUMBLED. BEDREST. RIGHT AND LEFT SIDE DEFICITS. PIV REMAINS INTACT. IV KEPPRA INFUSED. CBG Q6 CHECK 186. VSS/AFEBRILE. DENIES PAIN, SOB, AND N/V. ON ROOM AIR. PO MEDICATION REFUSED. CALL LIGHT IN REACH. BED IN LOWEST POSITION. WILL CONTINUE TO MONITOR UNTIL DAY SHIFT NURSE ASSUMES CARE.
[2022-10-12 04:54] LABS: Hematocrit 36.1 % (37.0-53.0); Hemoglobin 12.2 g/dL (13.5-17.5); Mean Corpuscular HGB 29.9 pg (26.0-34.0); Mean Corpuscular HGB Conc 33.8 g/dL (31.5-36.5); Mean Corpuscular Volume 89 fL (80-100); Mean Platelet Volume 11.2 fL (9.1-12.4); Platelet Count 217 K/mm3 (150-400); RDW Coefficient Variation 14.3 % (11.7-14.2); RDW Standard Deviation 45.9 fL (35.1-46.3); Red Blood Cell Count 4.08 M/mm3 (4.30-5.90); White Blood Cell Count 9.18 K/mm3 (4.00-11.30)
[2022-10-12 05:23] LABS: Bun/Creatinine Ratio 31.9 (12.0-20.0); Creatinine, Blood 0.66 mg/dL (0.60-1.20); Potassium, Blood 3.5 mmol/L (3.5-5.5)
--- NOTE | 2022-10-12 18:44 | NUR ---
SHIFT SUMMARY PT NON-VERBAL THOUGH WILL YELL OUT 1 SWEAR WORD WITH EVERY ATTEMPT TO PROVIDE CARE OR ADMIN MEDS. HE IS OTHERWISE COOPERATIVE WITH ALL CARE. HE DID TAKE HIS MEDS THIS MORNING THOUGH REFUSED AFTERNOON PO MEDS. HE AGREED TO PARTICIPATE WITH PT TODAY.
--- NOTE | 2022-10-12 19:28 | NUR ---
PATIENT HAVING INCREASED AGITATION YELLING AND SCREAMING. ABLE TO FORM A FEW WORD SENTENCE. NOT LOWERING VOICE WHEN ASKED. WCTM.
--- NOTE | 2022-10-13 04:13 | NUR ---
SHIFT SUMMARY PATIENT AGITATED FIRST HOUR OF SHIFT YELLING/SCREAMING. HX VASCULAR DEMENTIA. ABLE TO FORM A FEW WORD SENTENCES. NOT REDIRECTABLE OR ABLE TO FOLLOW DIRECTION AT THIS TIME. ALERT TO SELF AND BEDREST. CBG 205. PATIENT NODDED HEAD YES WHEN ASKED IF HE WOULD TAKE PO MEDICATION AND DID. DENIES PAIN, SOB, AND N/V. VSS/FEBRILE. SLEPT MOST OF SHIFT ONCE SETTLED IN. CALL LIGHT IN REACH. BED IN LOWEST POSITION. WILL CONTINUE TO MONITOR UNTIL DAY SHIFT NURSE ASSUMES CARE.
--- NOTE | 2022-10-13 05:56 | NUR ---
PATIENT REFUSING LAB DRAW AT THIS TIME. TECH REPORTS WILL TRY LATER.
--- NOTE | 2022-10-13 06:42 | NUR ---
PATIENT AGREED TO LAB DRAW AFTER REFUSING FIRST ONE.
[2022-10-13 07:01] LABS: Hemoglobin 12.5 g/dL (13.5-17.5); Mean Corpuscular HGB 29.7 pg (26.0-34.0); Mean Corpuscular HGB Conc 33.8 g/dL (31.5-36.5); Mean Corpuscular Volume 88 fL (80-100); Platelet Count 220 K/mm3 (150-400); RDW Coefficient Variation 14.4 % (11.7-14.2); RDW Standard Deviation 46.1 fL (35.1-46.3); Red Blood Cell Count 4.21 M/mm3 (4.30-5.90); White Blood Cell Count 6.95 K/mm3 (4.00-11.30)
[2022-10-13 07:21] LABS: Bun/Creatinine Ratio 27.3 (12.0-20.0); Calcium, Blood 8.8 mg/dL (8.5-10.1); Creatinine, Blood 0.51 mg/dL (0.60-1.20); Potassium, Blood 3.7 mmol/L (3.5-5.5)
--- NOTE | 2022-10-13 18:00 | NUR ---
SHIFT SUMMARY PT REMAINED CALM THROUGHOUT SHIFT, AGREED TO TAKE MORNING MEDS & DID TAKE. IS BEDREST, REPOSITIONED FOR COMFORT AND SAT UP RIGHT TO EAT. APPETITE WAS GOOD TODAY. IS A TOTAL FEEDER. APPEARED TO REST COMFORTABLY OFF AND ON TODAY WITH EYES CLOSED, RESP EVEN & UNLABORED. WAS IN ONCE TODAY TO VISIT WITH A GRAND-DTR. PT WILL LIKELY NEED PLACEMENT UPON DC.
--- NOTE | 2022-10-14 04:17 | NUR ---
SHIFT SUMMARY PATIENT YELLS/SCREAMS AT SHIFT CHANGE FOR 1-2 HOURS AND SETTLES IN. NOT ABLE TO FOLLOW DIRECTION. ALERT TO SELF WITH HX VASCULAR DEMENTIA. MUMBLED SPEECH CURSING AT TIMES USING ONLY ONE WORD. BEDREST. PIV REMAINS INTACT. CBG 179. VSS/AFEBRILE. DENIES PAIN, SOB, AND N/V. RT IN FOR BREATHING TX. SLEPT MOST OF THE SHIFT. TOOK PO MEDICATION. CALL LIGHT IN REACH. BED IN LOWEST POSITION WITH ALARM ON. WILL CONTINUE TO MONITOR UNTIL DAY SHIFT NURSE ASSUMES CARE.
--- NOTE | 2022-10-14 16:20 | NUR ---
SHIFT SUMMARY PT AxOx1-2. PT IS NOT VERBALIZING COMMUNICATION, OTHER THAN RANDOMLY SWEARING DURING MEDICATION INJECTION AND TRANFERING. PT LIVES AT HOME WITH HIS , WHO IS HIS PESTICIDE USE MEDICAL COORDINATOR CAREGIVER. PATIENT WORKED WITH THERAPY TODAY, WHO SAT HIM UP IN CHAIR FOR LUNCH. IT WAS VERY DIFFICULT TO GET PATIENT BACK IN BED SAFELY HE WAS UNABLE TO FOLLOW DIRECTION, EVEN JUST TO STAND AND PIVOT BACK TO HIS BED. PT DENIES PAIN, AND APPEARS COMFORTABLE IN BED. PT REQUIRES FEEDING/FEEDER ASSIST FOR MEALS. MED DELIVERY IN APPLESAUCE PRECAUTION UPDATED. VITALS REVIEWED. CURRENT PLAN IS DC TO SNF.
--- NOTE | 2022-10-15 04:49 | NUR ---
SHIFT SUMMARY NOC PT A/O TO VERBAL/TACTILE STIMULI. PT DOES NOT COMMUNICATE VERBALLY BESIDES RANDDOM SWEARING AND CALLING OUT WIFES NAME. PT LIVES AT HOME WITH , WHO IS HIS WICKER WORKER CAREGIVER. PT IS ON MECH/SOFT DIET. HE TOOK HIS PM RX WITH APPLESAUCE 1 AT A TIME AND TOLERATED WELL. MUST GIVE AMPLE TIME TO SWALLOW AND CHECK TO ENSURE 1ST PILL HAS BEEN SWALLOWED. PT HAS HX OF 6 CVA WITH BL DEFICITS, BUT LEFT SIDE IS NOTICEABLY WORSE. PT OPENED EYES BARELY DURING ASSESSMENT, BUT OTHERWISE DID NOT OPEN THEM. PT D/C PLAN IS FOR SNF PLACEMENT. PT IS CURRENTLY RESTING WITH BED ALARM ON, BED RAILS UP, BED IN LOWEST POSITION, AND CALL LIGHT WITHIN REACH.
--- NOTE | 2022-10-15 16:41 | NUR ---
SHIFT SUMMARY REPOSITIONED EVERY 2 HOURS PATIENT ALLOWED, NED SOME CARE PATIENT WOULD SAY NO AND REFUSE. REFUSED BREAKFAST AND LUNCH MEALS TODAY. PER PATIENT DOES NOT LIKE THE TEXTURE OF MECHANICAL SOFT FOODS, SHE REQUESTED PUREE TEXTURE FOR DINNER TO SEE IF PATIENT WILL TOLERATE BETTER. REFUSED TO WORK WITH OCCUPATIONAL THERAPY FOR LUNCH.
--- NOTE | 2022-10-16 04:50 | NUR ---
SUMMARY: PT ORIENTED TO SELF AND SURROUNDINGS BUT IS FORGETFULL AND IMPULSIVE AT TIMES. BED ALARM ON FOR FALL RISK AND REMINDERS PROVIDED PRN. SHE HAS A R.HIP FX BUT WAS ABLE TO WT.BEAR AND PIVOT T/F W/ASSIST TO BSC ON DAY SHIFT. SHE'S REMAINED IN BED T/O NOCTE BUT OCC SAT AT EOB W/STAFF IN ROOM. TRAMADOL RECIEVED PRN X1 FOR RELIEF OF R.HIP/BUTTOCKS PAIN. PT HAS PM AND IS PACED AT 60'S-70'S BPM BUT MUSHROOM GROWING SUPERVISOR ALERTED RN THIS AM THAT IT DOESN'T ALWAYS PACE WHEN IT SHOULD. SHE IS ASMPTOMATIC OF CARDIAC DISTRESS BUT WILL ENSURE DAY STAFF ARE AWARE PM MAY NEED INTERROGATED. NO ACUTE CHANGES, VSS AND AFEBRILE. UA STILL PENDING. WCTM AND REPORT TO DAY RN.
--- NOTE | 2022-10-16 05:32 | NUR ---
SUMMARY: PT BEGAN SHIFT AWAKE AND SLIGHTLY ANXIOUS, CALLING INTO HALLS FOR FAMILY MEMBERS AND WAS SEEMINGLY DISORIENTED. STAFF PROVIDED REMINDERS AND EXPLAINED EVENT/RATIONALE FOR HOSPITALIZATION AND HE EASILY CALMED. HE WAS ABLE TO RAISE ARMS AND LEGS FROM BED AND W/SEVERAL PROMPTS, COULD SQUEEZE RN'S HANDS UPON INSTRUCTION. PT IS GENERALLY WEAK AND DECONDITIONED FROM HX CVA'S X6 BUT L.SIDE SEEMS SLIGHTLY WEAKER THAN R.SIDE. R.4TH AND 5TH FINGERS APPEAR CONTRACTED AND PT HAS TENDENCY TO CLENCH EXT'S CLOSE TO BODY. TURN SCHEDULE MAINTAINED AND PILLOWS PLACED FOR SUPPORT AND SBD PREVENTION. L.HIP MEPILEX REMAINS C/D/I TO L.HIP SORE. HE HAS SLIGHT FACIAL DROOP W/MUMBLED AUDIBLE SPEECH AND R.EYE REMAINS CLENCHED SHUT. PT TOLERATED PILLS IN APPLESAUCE AND SIPS ENSURE W/O S/S ASPIRATION. HE WAS INCONTINENT W/ATTENDS CHANGED PRN AND POWDER APPLIED TO REDDENED SCROTUM/THIGHS. NO ACUTE CHANGES, VSS/AFREBRILE. WCTM AND REPORT TO DAY RN.
--- NOTE | 2022-10-16 15:54 | NUR ---
PT ALSEEP IN BED UPON MY ARRIVAL. PT FACE IS RELAXED, BREATHING EVEN AND UNLABORED AND APPEARS TO BE COMFORTABLE. PT AND DAUGHTER ARE AT THE BEDSIDE. WE DISCUSSED PT HX, STATUS AND LOF PRIOR TO THIS MOST RECENT ADMISSION. PT ADMITS THAT SHE HAS NOTICED A DECLINE IN HER AND WAS NOT SUPRISED WHEN DR AGUAYO SPOKE TO HER ABOUT HOSPICE. SHE WAS INIALLY SHOCKED AND UPSET ABOUT IT, BUT NOW REALIZES THAT HER IS NOT GOING TO GET BETTER AND IN HER WORDS, HE IS NOT A CANDIDATE FOR INTERVENTIONS. SHE VERBALIZES THAT SHE WANTS TO TAKE THE PT HOME ON HOSPICE AND CARE FOR HIM HERSELF SHE HAS BEEN FOR MANY YEARS. PT DAUGHTER IS ALSO IN THE ROOM AND VERBALIZES THAT SHE PLANS TO HELP HER MOM WITH CARING FOR THE PT. PT IS CURRENTLY ON [facility] AND THE VERBALIZES SHE WANTS TO GO WITH [facility]. THERE IS A QUESTION ABOUT WHEN WILL THE PT BE DCD, ADVISED I WILL FOLLOW UP WITH DR HOWELL AND THE EMBOSSER APPRENTICE. CALL PLACED TO DR HOWELL, UPDATED HIM ON MY CONVERSATION WITH THE PT ADVISED PT IS CURRENTLY ON SERVICE WITH . HE ADVISED THAT HE WILL TENTANTIVELY PLAN TO DC PT TOMORROW. UPDATE PROVIDED TO ARRON JUAN. ADVISED THAT THE DOES NOT WANT PT TO GO TO SNF, SHE WILL TAKE HIM HOME ON HOSPICE WITH [facility] AND CARE FOR HIM AT HOME. YESSICA WILL UPDATED THE CHOICE LETTER AND FOLLOW UP WITH THE FAMILY.
--- NOTE | 2022-10-16 16:56 | NUR ---
SHIFT SUMMARY- PT SLEPT MOST OF THIS SHIFT. AND DAUGHTER WERE AT BEDSIDE THIS SHIFT. HIS APPETITE IS POOR. POSSIBLE DX TOMORROW WITH HOSPICE.
--- NOTE | 2022-10-17 05:42 | NUR ---
SHIFT SUMMARY ALERT AND ORIENTED TO SELF. HAS APHASIA, CANNOT MAKE NEEDS KNOWN. TAKES MED IN APPLE SAUCE ONE AT A TIME. TENDS TO POCKET MEDS. INCONTINENT OF BLADDER, WEARS ATTENDS. BED ALARM ON. WILL CONTINUE TO MONITOR.
--- NOTE | 2022-10-17 13:13 | NUR ---
CASE CONFERENCE WITH CM, PLAN IS FOR PT TO BE DCD TODAY AND [facility] WILL ADMIT TOMORROW, ON FRIDAY AND REFERRALS SENT. MET WITH SPOUSE, SHE IS SITTING AT THE BEDSIDE. SHE IS COPING [place], REPORTS SHE HAS ALREADY BEEN CONTACTED MY [facility] AND HAS AN APPOINTMENT FOR TOMORROW. PT HAS BEEN COMFORTABLE WHILE IN THE HOSPITAL, AND SPOUSE FEELS CONFIDENT THAT THEY DONT NEED ADDITIONAL MEDICATIONS TO KEEP PT COMFORTABLE UNTIL HOSPICE ADMITS TOMORROW. OFFERED SUPPORT AND LISTENDED TALKS ABOUT CARING FOR NOT JUST THE PT, BUT SHE ALSO HELPS HER 90 Y/O FATHER THAT LIVES ALONE A SHORT DISTANCE FROM HER HOME. WE DISCUSS THAT CARING FOR BOTH HER FATHER AND NOW CAN BECOME OVERHWELMING. SHE REPORTS SHE HAS A LOT OF OUTSIDE SUPPORT FROM HER DAUGHTER, SON AND VARIOUS FRIENDS THAT HAVE AND WILL STEP IN TO HELP WHEN NEEDED. PLAN IS FOR DC TODAY TO BE ADMITTED TO HOSPICE, PALLIATIVE CARE WILL CONTINUE TO OFFER SUPPORT NEEDED. DR HOWELL UPDATED.
--- NOTE | 2022-10-17 16:06 | NUR ---
DC HOME WITH HOSPICE WRITTEN & VERBAL DC INSTRUCTIONS GIVEN TO PT'S WITH GOOD UNDERSTANDING VERBALIZED. IV DC'D WITH CATH TIP INATCT, NO REDNESS OR SWELLING NOTED. NO NEW SCRIPTS. PT TO GO HOME ON HOSPICE. PT TO 'S PRIVATE VEHICLE VIA W/C WITH ALL PERSONAL BELONGINGS.
== END 2022-10-17 16:00 | disposition hospice, home (50) | DRG 65 ==
LOC: ER 00:23 → ERHOLD 04:01 → ER 04:01 → ICUW 10:28 → MEDS 10-11 21:19
PROVIDERS: Family Medicine; Internal Medicine; Student in an Organized Health Care Education/Training Program; ADMIT Internal Medicine
DX: I63.9 Cerebral infarction, unspecified (principal); E44.0 Moderate protein-calorie malnutrition; I50.32 Chronic diastolic (congestive) heart failure; Z68.1 Body mass index [BMI] 19.9 or less, adult; G81.91 Hemiplegia, unspecified affecting right dominant side; G93.49 Other encephalopathy; G93.89 Other specified disorders of brain; J44.9 Chronic obstructive pulmonary disease, unspecified; Z66 Do not resuscitate; E11.9 Type 2 diabetes mellitus without complications; G40.909 Epilepsy, unspecified, not intractable, without status epilepticus; I25.10 Atherosclerotic heart disease of native coronary artery without angina pectoris; F01.50 Vascular dementia, unspecified severity, without behavioral disturbance, psychotic disturbance, mood disturbance, and anxiety; I11.0 Hypertensive heart disease with heart failure; R29.705 NIHSS score 5; R29.810 Facial weakness; I48.91 Unspecified atrial fibrillation; E87.6 Hypokalemia; Z88.1 Allergy status to other antibiotic agents; Z79.899 Other long term (current) drug therapy; Z79.01 Long term (current) use of anticoagulants; Z95.5 Presence of coronary angioplasty implant and graft; Z79.82 Long term (current) use of aspirin; Z79.02 Long term (current) use of antithrombotics/antiplatelets; Z79.51 Long term (current) use of inhaled steroids; Z95.0 Presence of cardiac pacemaker; Z79.811 Long term (current) use of aromatase inhibitors; I25.2 Old myocardial infarction; Z98.890 Other specified postprocedural states; Z79.2 Long term (current) use of antibiotics; I69.322 Dysarthria following cerebral infarction; I69.320 Aphasia following cerebral infarction; I69.321 Dysphasia following cerebral infarction; Z87.891 Personal history of nicotine dependence
CPT/HCPCS: 36415; 70450; 70496; 70498; 71045; 80048; 80053; 80061; 81003; 82947; 83036; 84443; 85025; 85027; 85610; 92526; 92610; 93005; 93010; 93306; 94640; 94664; 94760; 97110; 97162; 97166; 97530; 97535; 99285-25; A9270; J1650; J1815; J1953; J7050; Q9967